=== PATIENT | female | born 1935 | race African-American/Black ===

== ENCOUNTER → 2017-01-19 | Outpatient (CLI) | payer BC ==
[~2017-01-19] MED LIST: AMLO2.5T PO; ASPI81TA28 PO; BNC5 PO; FURO-85 PO; HYZ/10015 PO; LOSA100T65 PO; LPR25 PO; LPT10 PO; LPT40 PO; LSX20 PO; MDRDP21; MELO7.5T5 PO; OLME5TAB3 PO; PRD20 PO; SIMV-150 PO; TPRSR/50 PO; TPRSR25 PO; TRAM-10 PO; VENL150C56 PO
--- NOTE | 2017-01-19 08:43 | DIAGNOSTIC IMAGING REPORT ---
CHEST 2 VIEWS ROUTINE CLINICAL HISTORY: Chest pain. COMPARISON STUDY: Chest radiograph January 15, 2016. FINDINGS: Lung volumes are normal. There is no pneumothorax or pleural effusion. Cardiac size is within normal limits. There is no evidence of pulmonary edema. Mild left basilar opacity is suggestive of atelectasis. IMPRESSION: No acute cardiopulmonary findings. Electronically signed by: Paxton Noriega M.D. 01/19/2017 8:42 AM Dictated Date/Time: 01/19/2017 8:40 AM
== END | disposition home or self-care (01) ==
LOC: C.RAD 08:14
PROVIDERS: ATTEND Internal Medicine
DX: R07.9 Chest pain, unspecified (principal)

== ENCOUNTER 2017-01-22 15:54 | Observation (INO) | payer BC ==
[~2017-01-22] VITALS: Ht 167.6 cm; Wt 69.3 kg
[~2017-01-22 15:54] MED LIST changes: -BNC5 PO; -FURO-85 PO; -LOSA100T65 PO; -LPR25 PO; -LPT10 PO; -LPT40 PO; -LSX20 PO; -MDRDP21; -OLME5TAB3 PO; -PRD20 PO; -TPRSR/50 PO; -TPRSR25 PO
[2017-01-22] MEDS ORDERED: MDRDP21 (16:49)
[2017-01-22 16:54] LABS: HEMATOCRIT 39.7 % (37-47); MEAN CELL VOLUME 88.8 fL (80-100); MEAN CORPUSCULAR HGB CONC 33.8 g/dl (32-36); MEAN PLATELET VOLUME 9.1 fL (7.4-10.4); PLATELET COUNT 256 K/uL (130-400); RED BLOOD COUNT 4.47 M/uL (4.2-5.4); WHITE BLOOD COUNT 6.35 K/uL (4.8-10.8)
--- NOTE | 2017-01-22 16:55 | EMERGENCY ROOM VISIT NOTE ---
History Report prepared by Kristian: Reuben Gayle Under the Supervision of: Dr. Steffanie Womack M.D. First contact with patient: 16:43 Chief Complaint: CHEST PAIN Stated Complaint: CHEST PAIN History of Present Illness The patient is an 81 year old female who presents to the Emergency Room with complaints of intermittent chest pain that started 3 months ago. This pain is worse on the right side, especially when she lies on her left side. She describes this pain as a "piercing pain." She adds that she feels itchy on the right side when she is experiencing this pain. The patient states that she initially thought this pain was related to her right breast. She had a mammogram performed about 2 months ago which was normal. The patient was evaluated by her PCP 4 days ago. A chest x-ray was performed at this time. The patient states that she was told to come into the ED after review of the x-ray results. The patient denies nausea and any signs of a rash. The patient reports a history of arthritis. Source of History: patient Onset: 3 months ago Position: chest (right) Quality: other ("Piercing" ) Timing: intermittent Modifying Factors (Worsening): other (Lying on left side) Associated Symptoms: No nausea, No rash Review of Systems See HPI for pertinent positives & negatives. A total of 10 systems reviewed and were otherwise negative. 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 Surgical Problems: (1) History of hysterectomy (2) History of left hip replacement (3) History of right hip replacement (4) S/P appendectomy (5) S/P ORIF (open reduction internal fixation) fracture (6) Status post left hip replacement Family History Omitted due to patient age Social History Smoking Status: Former Smoker Drug Use: none Housing Status: assisted living Occupation Status: retired Current/Historical Medications Scheduled Amlodipine Besylate (Norvasc), 2.5 MG PO HS Aspirin (Aspirin Ec), 81 MG PO HS Hctz/Losartan (Hyzaar 25MG/100MG), 1 TAB PO QPM Meloxicam (Mobic), 7.5 MG PO HS Methylprednisolone (Methylprednisolone Dose P), UD Simvastatin (Simvastatin), 10 MG PO QPM Venlafaxine Hcl (Effexor Extended Rel), 150 MG PO HS Allergies Coded Allergies: Lobster (Verified Adverse Reaction, Intermediate, GI SYMPTOMS, 01/22/17) per pt report. Physical Exam Vital Signs Date Time Temp Pulse Resp B/P Pulse Ox O2 Delivery O2 Flow Rate FiO2 01/22/17 20:38 83 01/22/17 19:15 82 16 148/79 98 01/22/17 17:29 132/65 01/22/17 17:24 87 13 95 01/22/17 16:59 121/80 01/22/17 16:54 91 20 98 01/22/17 16:44 91 01/22/17 16:40 133/72 01/22/17 16:35 98 Room Air 01/22/17 16:35 90 17 133/72 98 Room Air 01/22/17 16:30 90 17 133/72 98 Room Air 01/22/17 15:59 98 Room Air 01/22/17 15:56 37.3 91 17 136/71 98 Room Air Physical Exam Vital signs reviewed. General: Well-appearing female, in no significant distress. HEENT: No scleral icterus, PERRLA, neck supple. Atraumatic. Cardiovascular: Regular rate and rhythm, no extra sounds. Pulmonary: Clear to auscultation bilaterally, normal work of breathing. Abdomen: Soft, nontender, nondistended, positive bowel sounds. Musculoskeletal: Atraumatic, no peripheral edema. Neurologic: Patient awake alert and oriented x 3, full strength in all 4 extremities. Cranial nerves 2 through 12 grossly intact. Skin: Warm, dry, no rash Medical Decision & Procedures ER Provider Diagnostic Interpretation: X-ray results as stated below per my interpretation and radiologist interpretation. Other radiology results as stated below per my review and radiologist interpretation: CHEST ONE VIEW PORTABLE CLINICAL HISTORY: Chest pain. COMPARISON STUDY: Chest radiograph January 19, 2017. FINDINGS: Lung volumes are at the lower limits of normal. Kyphotic positioning is noted. Cardiac size is at the upper limits of normal. There is no evidence of pulmonary edema. Mild left basilar opacity favors atelectasis. IMPRESSION: 1. No acute findings. 2. Mild left basilar opacity suggestive of atelectasis. Electronically signed by: Paxton Noriega M.D. 01/22/2017 4:54 PM Dictated Date/Time: 01/22/2017 4:46 PM RENAL ULTRASOUND CLINICAL HISTORY: Renal insufficiency. Chest pain. COMPARISON STUDY: None. TECHNIQUE: Sonography of the kidneys and the urinary bladder was performed. FINDINGS: The right kidney measures 9.7 x 3.7 x 4.4 cm and the left measures 9.8 x 4.7 x 4 cm. There is no hydronephrosis. Multiple bilateral renal cysts measure up to 4.5 cm. No renal calculi are identified. The ureteral jets were not visualized. IMPRESSION: 1. No hydronephrosis. 2. Multiple bilateral renal cysts. Electronically signed by: Paxton Noriega M.D. 01/22/2017 7:16 PM Dictated Date/Time: 01/22/2017 7:15 PM BILATERAL LOWER EXTREMITY VENOUS DOPPLER CLINICAL HISTORY: Elevated d-dimer. COMPARISON STUDY: Left lower extremity venous Doppler November 08, 2015. TECHNIQUE: Sonography of the deep venous system of the bilateral lower extremities was performed. Compression and augmentation were evaluated. FINDINGS: The bilateral common femoral, superficial femoral and popliteal veins were compressible. Augmentation was normal. Flow was shown within the deep calf vessels. IMPRESSION: No evidence of deep venous thrombus within the bilateral lower extremities. Electronically signed by: Paxton Noriega M.D. 01/22/2017 7:17 PM Dictated Date/Time: 01/22/2017 7:16 PM Laboratory Results Test 01/22/17 16:35 01/22/17 16:40 01/22/17 16:44 Prothrombin Time 12.0 SECONDS (9.0-12.0) Prothromb Time International Ratio 1.1 (0.9-1.1) Activated Partial Thromboplast Time 26.6 SECONDS (21.0-31.0) Partial Thromboplastin Ratio 1.0 Total Bilirubin 0.4 mg/dl (0.2-1) Aspartate Amino Transf (AST/SGOT) 15 U/L (15-37) Alanine Aminotransferase (ALT/SGPT) 23 U/L (12-78) Alkaline Phosphatase 115 U/L (45-117) Total Protein 8.0 gm/dl (6.4-8.2) Albumin 3.7 gm/dl (3.4-5.0) Globulin 4.3 gm/dl (2.5-4.0) Albumin/Globulin Ratio 0.9 (0.9-2) Urine Color YELLOW Urine Appearance CLEAR (CLEAR) Urine pH 5.0 (4.5-7.5) Urine Specific Atkinson 1.014 (1.000-1.030) Urine Protein NEG (NEG) Urine Glucose (UA) NEG (NEG) Urine Ketones NEG (NEG) Urine Occult Blood NEG (NEG) Urine Nitrite NEG (NEG) Urine Bilirubin NEG (NEG) Urine Urobilinogen NEG (NEG) Urine Leukocyte Esterase SMALL (NEG) Urine WBC (Auto) 1-5 /hpf (0-5) Urine RBC (Auto) 0-4 /hpf (0-4) Urine Hyaline Casts (Auto) 1-5 /lpf (0-5) Urine Epithelial Cells (Auto) 20-30 /lpf (0-5) Urine Bacteria (Auto) NEG (NEG) Urine Random Creatinine 150.0 mg/dl Urine Random Sodium 68 mEq/L Bedside D-Dimer > 450 ng/mlFEU (0-450) Bedside Troponin I 0.030 ng/ml (0-0.045) Laboratory results per my review. Medications Administered Medications (Trade) Dose Ordered Sig/Chinedu Route Start Time Stop Time Status Last Admin Dose Admin Sodium Chloride (Nss 1000ml) 1,000 ml @ 125 mls/hr Q8H STAT IV 01/22/17 17:25 01/23/17 00:20 DC 01/22/17 17:43 125 MLS/HR ECG Indication: chest pain Rate (beats per minute): 94 Rhythm: normal sinus Findings: other (Previous septal infarct) Comparison ECG Date: January 22, 2017 Change: Septal infarct is new ED Course 1649: Past medical records reviewed. The patient was evaluated in room B12B. A complete history and physical examination was performed. 1725: Ordered Sodium Chloride 1,000 ml @ 125 mls/hr IV. 1935: I reviewed the patient's case with Dr. Ahn ([facility] Hospitalist). She will evaluate the patient for further management. Medical Decision DDx: Acute coronary syndrome, pulmonary embolus, aortic dissection, musculoskeletal pain, pneumonia, pleural effusion, pneumothorax This pt was evaluated and appeared to be in no distress. IV access was obtained and lab work was drawn. Pt was placed on the urogynecology physician and an EKG was performed. EKG reveals a CXR was performed by protocol and reveals atelectasis, similar to yesterday's exam. Lab work was ordered by protocol as well, including a d-dimer. This is elevated >450. Pt is found to have a creat of 1.8. This is apparently not a new issue, although most recently her creat has been near 1.0. Pt was hydrated with NSS. US are neg for DVT. Renal scan is as above. Pt will be evaluated by the hospitalist for further management. Consults Time Called: 1929 Consulting Physician: Dr. Ahn ([facility]) Returned Call: 1934 I reviewed the patient's case with Dr. Ahn ([facility]). She will evaluate the patient for further management. Impression Primary Impression: Right-sided chest pain Additional Impressions: Elevated d-dimer Renal insufficiency Scribe Attestation The scribe's documentation has been prepared under my direction and personally reviewed by me in its entirety. I confirm that the note above accurately reflects all work, treatment, procedures, and medical decision making performed by me. Departure Information Dispostion Being Evaluated By Hospitalist Referrals Fermin Olvera M.D. (PCP) Patient Instructions My [facility] Problem Qualifiers
[2017-01-22 17:02] LABS: INR 1.1 (0.9-1.1)
[2017-01-22 17:14] LABS: BUN/CREATININE RATIO 20.4 (10-20); CREATININE 1.8 mg/dl (0.60-1.20); POTASSIUM 3.6 mmol/L (3.5-5.1)
[2017-01-22 17:19] LABS: ALB/GLOB RATIO 0.9 (0.9-2); CKMB/CK RATIO 1.8 (0-3.0)
[2017-01-22] MEDS ORDERED: SODIUM CHLORIDE 0.9% 1000ML 1,000 ML IV STA (17:25)
--- NOTE | 2017-01-22 19:17 | DIAGNOSTIC IMAGING REPORT ---
RENAL ULTRASOUND CLINICAL HISTORY: Renal insufficiency. Chest pain. COMPARISON STUDY: None. TECHNIQUE: Sonography of the kidneys and the urinary bladder was performed. FINDINGS: The right kidney measures 9.7 x 3.7 x 4.4 cm and the left measures 9.8 x 4.7 x 4 cm. There is no hydronephrosis. Multiple bilateral renal cysts measure up to 4.5 cm. No renal calculi are identified. The ureteral jets were not visualized. IMPRESSION: 1. No hydronephrosis. 2. Multiple bilateral renal cysts. Electronically signed by: Paxton Noriega M.D. 01/22/2017 7:16 PM Dictated Date/Time: 01/22/2017 7:15 PM
--- NOTE | 2017-01-22 19:19 | DIAGNOSTIC IMAGING REPORT ---
BILATERAL LOWER EXTREMITY VENOUS DOPPLER CLINICAL HISTORY: Elevated d-dimer. COMPARISON STUDY: Left lower extremity venous Doppler November 08, 2015. TECHNIQUE: Sonography of the deep venous system of the bilateral lower extremities was performed. Compression and augmentation were evaluated. FINDINGS: The bilateral common femoral, superficial femoral and popliteal veins were compressible. Augmentation was normal. Flow was shown within the deep calf vessels. IMPRESSION: No evidence of deep venous thrombus within the bilateral lower extremities. Electronically signed by: Paxton Noriega M.D. 01/22/2017 7:17 PM Dictated Date/Time: 01/22/2017 7:16 PM
[2017-01-22] MEDS ORDERED: ASPIRIN 81 MG CHEW PO STA (20:52)
[2017-01-22] MEDS ORDERED: ONDANSETRON INJ 2 MG/ML 2 ML VIAL IV PRN (21:00)
[2017-01-22] MEDS ORDERED: IV FLUIDS COMPLETED PRN (21:30)
--- NOTE | 2017-01-22 21:35 | History and Physical ---
History & Physical Date & Time of Service: Jan 22, 2017 at 20:56 Chief Complaint: Chest Pain Primary Care Physician: Fermin Olvera M.D. History of Present Illness Source: patient, clinic records This is an 81 year old female with PMH of CKD, HTN, dyslipidemia, 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 Patient states she has chest pain intermittently x 3 months. She reports having a mammogram, ultrasound, and biopsy of her breast which was benign. She was seen by her PCP in [place] 4 days ago who ordered a chest x- ray and prescribed a steroid which she took 1 dose of this morning. The CXR was done at [facility] on 01/19/17 which showed mild L basilar opacity suggestive of atelectasis. Pt states her PCP called her and instructed her to present to the ER. Patient states the chest pain is present whenever she lies on her right side and also occurs sporadically a few times throughout the day. She describes it as squeezing or stinging behind the left breast with radiation of itching or burning pain to her back. Denies any rashes or history of shingles. She is not having any chest pain currently. She reports chronic occasional palpitations. She denies ELLIOTT when she ambulates, although she does not climb stairs or walk briskly secondary to her chronic hip pain and is mostly sedentary at home. She has been eating normally and drinking plenty of fluids. Denies fever, chills, diaphoresis, URI symptoms, cough, SOB, orthopnea, abdominal pain, N/V/D, urinary changes, weight gain, edema, calf pain, anxiety, heavy lifting. She had a [address] when she traveled to and from [place] earlier this week. No other travel. No recent surgery. Denies history of CAD. She has not had a cath as per Dr. Jaquez's cardiology consultation in Dec 2015. Denies history of PE or DVT. She does take meloxicam daily. Past Medical/Surgical History Medical Problems: (1) Anemia Status: Resolved (2) Bipolar disorder Status: Chronic (3) CKD (chronic kidney disease) Status: Chronic (4) Diastolic dysfunction Permanent Comment: grade 1 diastolic dysfunction on echo 01/16/16 Status: Chronic (5) H/O viral myocarditis Permanent Comment: in remote past with improvement of LV EF to 55% on echo 2015 Status: Chronic (6) History of gout Status: Chronic (7) Hyperlipidemia Status: Chronic (8) Hypertension Status: Chronic (9) Mitral regurgitation Permanent Comment: mild on echo 12/2015 Status: Chronic Surgical Problems: (1) History of hysterectomy Status: Chronic (2) History of right hip replacement Status: Chronic (3) S/P appendectomy Status: Chronic (4) S/P ORIF (open reduction internal fixation) fracture Permanent Comment: left femur 01/16/16 Status: Chronic (5) Status post left hip replacement Status: Chronic Family History FH: CHF (congestive heart failure) FATHER MOTHER BROTHER Denies family history of CAD or blood clots. Social History Smoking Status: Former Smoker Drug Use: none Occupational Status: retired Multi-Drug Resistant Organisms History of MDRO: No Allergies Coded Allergies: Lobster (Verified Adverse Reaction, Intermediate, GI SYMPTOMS, 01/22/17) per pt report. Home Medications Scheduled Amlodipine Besylate (Norvasc), 2.5 MG PO HS Aspirin (Aspirin Ec), 81 MG PO HS Hctz/Losartan (Hyzaar 25MG/100MG), 1 TAB PO QPM Meloxicam (Mobic), 7.5 MG PO HS Methylprednisolone (Methylprednisolone Dose P), UD Simvastatin (Simvastatin), 10 MG PO QPM Venlafaxine Hcl (Effexor Extended Rel), 150 MG PO HS Review of Systems Ten point review of systems performed with pertinent positives and negatives noted in HPI. Physical Exam Vital Signs Date Time Temp Pulse Resp B/P Pulse Ox O2 Delivery O2 Flow Rate FiO2 01/22/17 20:38 83 01/22/17 19:15 82 16 148/79 98 01/22/17 17:29 132/65 01/22/17 17:24 87 13 95 01/22/17 16:59 121/80 01/22/17 16:54 91 20 98 01/22/17 16:44 91 01/22/17 16:40 133/72 01/22/17 16:35 98 Room Air 01/22/17 16:35 90 17 133/72 98 Room Air 01/22/17 16:30 90 17 133/72 98 Room Air 01/22/17 15:59 98 Room Air 01/22/17 15:56 37.3 91 17 136/71 98 Room Air General Appearance: WD/WN, no apparent distress Head: normocephalic, atraumatic Eyes: normal inspection, PERRL, EOMI ENT: hearing grossly normal, pharynx normal Neck: trachea midline, + JVD Respiratory/Chest: chest non-tender, lungs clear, normal breath sounds, no respiratory distress, no accessory muscle use Cardiovascular: regular rate, rhythm, no murmur, normal peripheral pulses Abdomen/GI: normal bowel sounds, non tender, soft Back: + pertinent finding (no thoracic paraspinal muscle tenderness) Extremities/Musculoskelatal: no calf tenderness, no pedal edema Neurologic/Psych: alert, normal mood/affect, oriented x 3, + pertinent finding (grossly nonfocal) Skin: normal color, warm/dry, no rash (no rash on the left breast area or back ) Diagnostics Laboratory Results Results Past 24 Hours Test 01/22/17 16:35 01/22/17 16:44 Range/Units White Blood Count 6.35 4.8-10.8 K/uL Red Blood Count 4.47 4.2-5.4 M/uL Hemoglobin 13.4 12.0-16.0 g/dL Hematocrit 39.7 37-47 % Mean Corpuscular Volume 88.8 80-100 fL Mean Corpuscular Hemoglobin 30.0 25-34 pg Mean Corpuscular Hemoglobin Concent 33.8 32-36 g/dl RDW Standard Deviation 40.1 36.4-46.3 fL RDW Coefficient of Variation 12.5 11.5-14.5 % Platelet Count 256 130-400 K/uL Mean Platelet Volume 9.1 7.4-10.4 fL Prothrombin Time 12.0 9.0-12.0 SECONDS Prothromb Time International Ratio 1.1 0.9-1.1 Activated Partial Thromboplast Time 26.6 21.0-31.0 SECONDS Partial Thromboplastin Ratio 1.0 Sodium Level 138 136-145 mmol/L Potassium Level 3.6 3.5-5.1 mmol/L Chloride Level 103 98-107 mmol/L Carbon Dioxide Level 25 21-32 mmol/L Anion Gap 10.0 3-11 mmol/L Blood Urea Nitrogen 37 7-18 mg/dl Creatinine 1.80 0.60-1.20 mg/dl Est Creatinine Clear Calc Drug Dose 23.3 ml/min Estimated GFR () 30.3 Estimated GFR (Non- 26.1 BUN/Creatinine Ratio 20.4 10-20 Random Glucose 124 70-99 mg/dl Calcium Level 9.0 8.5-10.1 mg/dl Total Bilirubin 0.4 0.2-1 mg/dl Aspartate Amino Transf (AST/SGOT) 15 15-37 U/L Alanine Aminotransferase (ALT/SGPT) 23 12-78 U/L Alkaline Phosphatase 115 45-117 U/L Total Creatine Kinase 117 26-192 U/L Creatine Kinase MB 2.1 0.5-3.6 ng/ml Creatine Kinase MB Ratio 1.8 0-3.0 Total Protein 8.0 6.4-8.2 gm/dl Albumin 3.7 3.4-5.0 gm/dl Globulin 4.3 2.5-4.0 gm/dl Albumin/Globulin Ratio 0.9 0.9-2 Bedside D-Dimer > 450 0-450 ng/mlFEU Bedside Troponin I 0.030 0-0.045 ng/ml Diagnostic Radiology CHEST ONE VIEW PORTABLE CLINICAL HISTORY: Chest pain. COMPARISON STUDY: Chest radiograph January 19, 2017. FINDINGS: Lung volumes are at the lower limits of normal. Kyphotic positioning is noted. Cardiac size is at the upper limits of normal. There is no evidence of pulmonary edema. Mild left basilar opacity favors atelectasis. IMPRESSION: 1. No acute findings. 2. Mild left basilar opacity suggestive of atelectasis. RENAL ULTRASOUND CLINICAL HISTORY: Renal insufficiency. Chest pain. COMPARISON STUDY: None. TECHNIQUE: Sonography of the kidneys and the urinary bladder was performed. FINDINGS: The right kidney measures 9.7 x 3.7 x 4.4 cm and the left measures 9.8 x 4.7 x 4 cm. There is no hydronephrosis. Multiple bilateral renal cysts measure up to 4.5 cm. No renal calculi are identified. The ureteral jets were not visualized. IMPRESSION: 1. No hydronephrosis. 2. Multiple bilateral renal cysts. BILATERAL LOWER EXTREMITY VENOUS DOPPLER CLINICAL HISTORY: Elevated d-dimer. COMPARISON STUDY: Left lower extremity venous Doppler November 08, 2015. TECHNIQUE: Sonography of the deep venous system of the bilateral lower extremities was performed. Compression and augmentation were evaluated. FINDINGS: The bilateral common femoral, superficial femoral and popliteal veins were compressible. Augmentation was normal. Flow was shown within the deep calf vessels. IMPRESSION: No evidence of deep venous thrombus within the bilateral lower extremities. EKG sinus rhythm, rate 94 bpm, possible left atrial enlargement, possible age indeterminate septal infarct, nonspecific T wave abnormality now present in anterior leads Impression Assessment and Plan VITOR Creat is 1.8; baseline approximately 1 in Dec 2015; BUN = 37 Renal US showed multiple bilateral renal cysts Check UA, urine sodium, urine spot creatinine Hold losartan/ HCTZ, meloxicam, and methylprednisolone Given approximately 500 mL of IVF's in ER Recheck renal function in am CHEST PAIN Intermittent x 3 months; resolved currently Initial POC troponin 0.03 CXR shows L base atelectasis; incentive spirometry ordered EKG- nonspecific T wave abnormality D dimer elevated; ultrasound of bilateral LE negative for DVT Check VQ scan in am to r/o PE Check bilateral blood pressures R/o ACS- trend serial cardiac enzymes Give aspirin 324 mg chewable now Continue baby aspirin and statin Check DSE in am HYPERTENSION BP is stable HCTZ/ losartan held for VITOR HISTORY OF VIRAL MYOCARDITIS In approximately 1989 patient had EF of 15% which has normalized Echo 01/16/16- EF 55%, grade 1 diastolic dysfunction, mild biatrial enlargement, mild AV sclerosis, mild mitral regurgitation Clinically euvolemic on exam Check daily standing weight BIPOLAR DISORDER Stable; continue Effexor DVT PROPHYLAXIS Heparin SQ CODE STATUS Full code per my discussion with the patient Patient seen in collaboration with Dr. Ahn. Please see her addendum. ATTENDING ADDENDUM Record reviewed. Patient interviewed and examined. I agree with the assessment and plan as stated above. Care coordinated with Mecca Bangura PA-C. Please refer to her documentation for patient's history. Sujata Ahn, DO Hospitalist Level of Care Telemetry Resuscitation Status FULL RESUSCITATION VTE Prophylaxis VTE Risk Assessment Done? Y/N: Yes Risk Level: Moderate Given or contraindicated: Unfractionated heparin SQ
[2017-01-22 22:32] LABS: URINE APPEARANCE CLEAR (CLEAR); URINE BILIRUBIN NEG (NEG); URINE COLOR YELLOW; URINE EPITHELIAL CELL AUTO 20-30 /lpf (0-5); URINE NITRITE NEG (NEG); URINE SPECIFIC GRAVITY 1.014 (1.000-1.030); UROBILINOGEN NEG (NEG); ZZUR CULT IF INDIC CLEAN CATCH NO
[2017-01-22 22:34] LABS: MANUAL MICROSCOPIC REQUIRED? NO; REVIEW REQ? NO
[2017-01-22 23:15] LABS: CKMB/CK RATIO 1.8 (0-3.0)
[2017-01-23] VITALS: BP 171/96; PULSE 78; TEMP 36.7; Ht 167.6 cm; Wt 69.3 kg
[2017-01-23] MEDS ORDERED: SODIUM CHLORIDE 0.9% 1000ML 1,000 ML IV SCH (00:30)
[2017-01-23] MEDS ORDERED: ASPIRIN 81 MG CHEW PO STA (00:34)
[2017-01-23] MEDS: SIMVASTATIN 10 MG TAB PO SCH ×2 (00:50→20:29)
[2017-01-23] MEDS: VENLAFAXINE HCL XR 150 MG CAPXR PO SCH ×2 (00:51→20:29)
[2017-01-23] MEDS: AMLODIPINE BESYLATE 5 MG TAB PO SCH ×2 (00:51→20:31)
[2017-01-23 04:00] VITALS: BP 162/88; PULSE 72; TEMP 36.4; O2SAT 96
[2017-01-23] MEDS: HEPARIN SOD 5000 UNIT/0.5 ML CARP SQ SCH ×3 (05:52→20:30)
[2017-01-23 05:56] LABS: HEMATOCRIT 31.7 % (37-47); MEAN CELL VOLUME 90.3 fL (80-100); MEAN CORPUSCULAR HEMOGLOBIN 30.2 pg (25-34); MEAN CORPUSCULAR HGB CONC 33.4 g/dl (32-36); MEAN PLATELET VOLUME 9.2 fL (7.4-10.4); PLATELET COUNT 205 K/uL (130-400); RED BLOOD COUNT 3.51 M/uL (4.2-5.4); WHITE BLOOD COUNT 6.76 K/uL (4.8-10.8)
[2017-01-23 06:34] LABS: BUN/CREATININE RATIO 25.3 (10-20); CALCIUM 8.3 mg/dl (8.5-10.1); CREATININE 1.4 mg/dl (0.60-1.20); MAGNESIUM 2.1 mg/dl (1.8-2.4); POTASSIUM 3.9 mmol/L (3.5-5.1)
[2017-01-23 06:37] LABS: CKMB/CK RATIO 2.2 (0-3.0)
[2017-01-23 08:04] VITALS: BP 150/87; PULSE 67; TEMP 36.7; O2SAT 98
--- NOTE | 2017-01-23 11:23 | DIAGNOSTIC IMAGING REPORT ---
NUCLEAR MEDICINE PULMONARY VENTILATION/PERFUSION SCAN CLINICAL HISTORY: Atypical chest pain and positive d-dimer. COMPARISON STUDY: Chest x-ray dated 01/22/2017 FINDINGS: Patient was ventilated utilizing 33 mCi of technetium 99m DTPA aerosol. The patient was perfused utilizing 5.5 mCi of technetium 99m MAA. There is a slightly heterogeneous perfusion pattern. There is a moderate VQ mismatch involving the left lower lobe, without a chest x-ray correlate. This study is of intermediate probability for pulmonary embolism. CT angiography of the chest should be considered in follow-up. IMPRESSION: Intermediate probability of acute pulmonary embolism. CT angiography of the chest is recommended in follow-up Electronically signed by: Steve Samuels M.D. 01/23/2017 11:22 AM Dictated Date/Time: 01/23/2017 11:14 AM
[2017-01-23 12:14] VITALS: BP 153/75; PULSE 66; TEMP 36.8; O2SAT 99
--- NOTE | 2017-01-23 13:51 | Progress Note ---
Internal Med Progress Note Date of Service: Jan 23, 2017. Provider Documentation: SUBJECTIVE: The patient was seen and examined No more chest pain Denies any SOB OBJECTIVE: Vital Signs-as noted below Exam: General-No distress at rest Eyes-Normal ENT-normal Neck-Supple Lungs-Clear to ausucltate bilaterally Heart-Regular,no murmur appreciated Abdomen-Benign,no masses,bowel sound present Extremities-No edema Neuro-AAOx3 No focal neuro deficit Lab data as noted below. ASSESSMENT & PLAN: Acute Renal Failure Likely secondary to Dehydration Creat is 1.8 on Admission; baseline approximately 1 in Dec 2015; Renal US showed multiple bilateral renal cysts and no hydronephrosis Hold losartan/ HCTZ, meloxicam, and methylprednisolone Received IVF in ER Creatinine is improved to 1.4 this morning Continue IVF for now CHEST PAIN-ACS ruled out Intermittent x 3 months; resolved currently Initial POC troponin 0.03 and serial tests are unremarkable CXR shows L base atelectasis; EKG- nonspecific T wave abnormality Give aspirin 324 mg chewable now Continue baby aspirin and statin Intermediate Probability of PE on VQ scan NO DVTs Likely to have Stress test as an OP HYPERTENSION BP is stable HCTZ/ losartan held for VITOR HISTORY OF VIRAL MYOCARDITIS In approximately 1989 patient had EF of 15% which has normalized Echo 01/16/16- EF 55%, grade 1 diastolic dysfunction, mild biatrial enlargement, mild AV sclerosis, mild mitral regurgitation Clinically euvolemic on exam BIPOLAR DISORDER Stable; continue Effexor No acute symptoms DVT PROPHYLAXIS Heparin SQ CODE STATUS Full code per my discussion with the patient Vital Signs: Date Time Temp Pulse Resp B/P Pulse Ox O2 Delivery O2 Flow Rate FiO2 01/23/17 12:30 Room Air 01/23/17 12:14 36.8 66 16 153/75 99 Room Air 01/23/17 08:50 Room Air 01/23/17 08:04 36.7 67 16 150/87 98 Room Air 01/23/17 04:00 36.4 72 18 162/88 96 Room Air 01/23/17 00:00 36.7 78 18 171/96 Room Air 01/22/17 23:39 81 20 162/97 98 Room Air 01/22/17 21:35 84 20 158/80 99 01/22/17 20:38 83 01/22/17 19:15 82 16 148/79 98 01/22/17 17:29 132/65 01/22/17 17:24 87 13 95 01/22/17 16:59 121/80 01/22/17 16:54 91 20 98 01/22/17 16:44 91 01/22/17 16:40 133/72 01/22/17 16:35 98 Room Air 01/22/17 16:35 90 17 133/72 98 Room Air 01/22/17 16:30 90 17 133/72 98 Room Air 01/22/17 15:59 98 Room Air 01/22/17 15:56 37.3 91 17 136/71 98 Room Air Lab Results: Results Past 24 Hours Test 01/22/17 16:35 01/22/17 16:40 01/22/17 16:44 01/22/17 22:45 Range/Units White Blood Count 6.35 4.8-10.8 K/uL Red Blood Count 4.47 4.2-5.4 M/uL Hemoglobin 13.4 12.0-16.0 g/dL Hematocrit 39.7 37-47 % Mean Corpuscular Volume 88.8 80-100 fL Mean Corpuscular Hemoglobin 30.0 25-34 pg Mean Corpuscular Hemoglobin Concent 33.8 32-36 g/dl RDW Standard Deviation 40.1 36.4-46.3 fL RDW Coefficient of Variation 12.5 11.5-14.5 % Platelet Count 256 130-400 K/uL Mean Platelet Volume 9.1 7.4-10.4 fL Prothrombin Time 12.0 9.0-12.0 SECONDS Prothromb Time International Ratio 1.1 0.9-1.1 Activated Partial Thromboplast Time 26.6 21.0-31.0 SECONDS Partial Thromboplastin Ratio 1.0 Sodium Level 138 136-145 mmol/L Potassium Level 3.6 3.5-5.1 mmol/L Chloride Level 103 98-107 mmol/L Carbon Dioxide Level 25 21-32 mmol/L Anion Gap 10.0 3-11 mmol/L Blood Urea Nitrogen 37 7-18 mg/dl Creatinine 1.80 0.60-1.20 mg/dl Est Creatinine Clear Calc Drug Dose 23.3 ml/min Estimated GFR () 30.3 Estimated GFR (Non- 26.1 BUN/Creatinine Ratio 20.4 10-20 Random Glucose 124 70-99 mg/dl Calcium Level 9.0 8.5-10.1 mg/dl Total Bilirubin 0.4 0.2-1 mg/dl Aspartate Amino Transf (AST/SGOT) 15 15-37 U/L Alanine Aminotransferase (ALT/SGPT) 23 12-78 U/L Alkaline Phosphatase 115 45-117 U/L Total Creatine Kinase 117 97 26-192 U/L Creatine Kinase MB 2.1 1.7 0.5-3.6 ng/ml Creatine Kinase MB Ratio 1.8 1.8 0-3.0 Total Protein 8.0 6.4-8.2 gm/dl Albumin 3.7 3.4-5.0 gm/dl Globulin 4.3 2.5-4.0 gm/dl Albumin/Globulin Ratio 0.9 0.9-2 Urine Color YELLOW Urine Appearance CLEAR CLEAR Urine pH 5.0 4.5-7.5 Urine Specific [place] 1.014 1.000-1.030 Urine Protein NEG NEG Urine Glucose (UA) NEG NEG Urine Ketones NEG NEG Urine Occult Blood NEG NEG Urine Nitrite NEG NEG Urine Bilirubin NEG NEG Urine Urobilinogen NEG NEG Urine Leukocyte Esterase SMALL NEG Urine WBC (Auto) 1-5 0-5 /hpf Urine RBC (Auto) 0-4 0-4 /hpf Urine Hyaline Casts (Auto) 1-5 0-5 /lpf Urine Epithelial Cells (Auto) 20-30 0-5 /lpf Urine Bacteria (Auto) NEG NEG Urine Random Creatinine 150.0 mg/dl Urine Random Sodium 68 mEq/L Bedside D-Dimer > 450 0-450 ng/mlFEU Bedside Troponin I 0.030 0-0.045 ng/ml Troponin I 0.025 0-0.045 ng/ml Test 01/23/17 05:08 Range/Units White Blood Count 6.76 4.8-10.8 K/uL Red Blood Count 3.51 4.2-5.4 M/uL Hemoglobin 10.6 12.0-16.0 g/dL Hematocrit 31.7 37-47 % Mean Corpuscular Volume 90.3 80-100 fL Mean Corpuscular Hemoglobin 30.2 25-34 pg Mean Corpuscular Hemoglobin Concent 33.4 32-36 g/dl RDW Standard Deviation 42.0 36.4-46.3 fL RDW Coefficient of Variation 12.7 11.5-14.5 % Platelet Count 205 130-400 K/uL Mean Platelet Volume 9.2 7.4-10.4 fL Sodium Level 145 136-145 mmol/L Potassium Level 3.9 3.5-5.1 mmol/L Chloride Level 111 98-107 mmol/L Carbon Dioxide Level 29 21-32 mmol/L Anion Gap 5.0 3-11 mmol/L Blood Urea Nitrogen 35 7-18 mg/dl Creatinine 1.40 0.60-1.20 mg/dl Est Creatinine Clear Calc Drug Dose 30.0 ml/min Estimated GFR () 41.0 Estimated GFR (Non- 35.4 BUN/Creatinine Ratio 25.3 10-20 Random Glucose 92 70-99 mg/dl Calcium Level 8.3 8.5-10.1 mg/dl Magnesium Level 2.1 1.8-2.4 mg/dl Total Creatine Kinase 85 26-192 U/L Creatine Kinase MB 1.9 0.5-3.6 ng/ml Creatine Kinase MB Ratio 2.2 0-3.0 Troponin I 0.035 0-0.045 ng/ml
[2017-01-23 15:51] VITALS: BP 136/79; PULSE 70; TEMP 36.8; O2SAT 98
[2017-01-23 19:43] VITALS: BP 133/77; PULSE 82; TEMP 36.6; O2SAT 94
[2017-01-23] MEDS: ASPIRIN 81 MG ECTAB PO SCH (20:29)
[2017-01-23] MEDS: ACETAMINOPHEN 325 MG TAB PO PRN (20:30)
[2017-01-24 04:00] VITALS: BP 153/84; PULSE 69; TEMP 36.6; O2SAT 97
[2017-01-24] MEDS: HEPARIN SOD 5000 UNIT/0.5 ML CARP SQ SCH ×3 (05:58→21:20)
[2017-01-24 07:56] LABS: BUN/CREATININE RATIO 21.5 (10-20); CALCIUM 8.5 mg/dl (8.5-10.1); CREATININE 1.3 mg/dl (0.60-1.20); POTASSIUM 3.9 mmol/L (3.5-5.1)
[2017-01-24 07:57] LABS: PHOSPHORUS 3.4 mg/dl (2.5-4.9)
[2017-01-24 08:04] VITALS: BP 156/88; PULSE 66; TEMP 36.7; O2SAT 97
[2017-01-24] MEDS: NSS + 20MEQ KCL 1000ML 1,000 ML IV SCH ×2 (09:40→17:44)
[2017-01-24 11:51] VITALS: BP 135/78; PULSE 70; TEMP 36.7; O2SAT 95
--- NOTE | 2017-01-24 13:15 | Progress Note ---
Internal Med Progress Note Date of Service: Jan 24, 2017. Provider Documentation: SUBJECTIVE: The patient was seen and examined Complains of some right sided chest pain No SOB associated with it OBJECTIVE: Vital Signs-as noted below Exam: General-No distress at rest Eyes-Normal ENT-normal Neck-Supple Lungs-Clear to ausucltate bilaterally No localized tenderness Heart-Regular,no murmur appreciated Abdomen-Benign,no masses,bowel sound present Extremities-No edema Neuro-AAOx3 No focal neuro deficit Lab data as noted below. ASSESSMENT & PLAN: Acute Renal Failure Likely secondary to Dehydration Creat is 1.8 on Admission; baseline approximately 1 in Dec 2015; Renal US showed multiple bilateral renal cysts and no hydronephrosis Hold losartan/ HCTZ, meloxicam, and methylprednisolone Received IVF in ER Creatinine is improved to 1.4 this morning Continue IVF for now Creatinine is improving CHEST PAIN-ACS ruled out Intermittent x 3 months; resolved currently Initial POC troponin 0.03 and serial tests are unremarkable CXR shows L base atelectasis; EKG- nonspecific T wave abnormality Give aspirin 324 mg chewable now Continue baby aspirin and statin Intermediate Probability of PE on VQ scan NO DVTs Probable CTA tomorrow to R/O PE Stress test in AM HYPERTENSION BP is stable HCTZ/ losartan held for VITOR HISTORY OF VIRAL MYOCARDITIS In approximately 1989 patient had EF of 15% which has normalized Echo 01/16/16- EF 55%, grade 1 diastolic dysfunction, mild biatrial enlargement, mild AV sclerosis, mild mitral regurgitation Clinically euvolemic on exam BIPOLAR DISORDER Stable; continue Effexor No acute symptoms DVT PROPHYLAXIS Heparin SQ CODE STATUS Full code per my discussion with the patient Vital Signs: Date Time Temp Pulse Resp B/P Pulse Ox O2 Delivery O2 Flow Rate FiO2 01/24/17 12:32 Room Air 01/24/17 11:51 36.7 70 16 135/78 95 Room Air 01/24/17 08:04 36.7 66 16 156/88 97 01/24/17 08:00 Room Air 01/24/17 04:00 36.6 69 18 153/84 97 Room Air 01/24/17 04:00 Room Air 01/24/17 00:00 Room Air 01/23/17 20:00 Room Air 01/23/17 19:43 36.6 82 20 133/77 94 Room Air 01/23/17 16:11 Room Air 01/23/17 15:51 36.8 70 18 136/79 98 Room Air Lab Results: Results Past 24 Hours Test 01/24/17 07:10 Range/Units Sodium Level 140 136-145 mmol/L Potassium Level 3.9 3.5-5.1 mmol/L Chloride Level 107 98-107 mmol/L Carbon Dioxide Level 29 21-32 mmol/L Anion Gap 4.0 3-11 mmol/L Blood Urea Nitrogen 28 7-18 mg/dl Creatinine 1.30 0.60-1.20 mg/dl Est Creatinine Clear Calc Drug Dose 32.3 ml/min Estimated GFR () 44.9 Estimated GFR (Non- 38.7 BUN/Creatinine Ratio 21.5 10-20 Random Glucose 83 70-99 mg/dl Calcium Level 8.5 8.5-10.1 mg/dl Phosphorus Level 3.4 2.5-4.9 mg/dl Magnesium Level 2.0 1.8-2.4 mg/dl
[2017-01-24 15:55] VITALS: BP 143/63; PULSE 74; TEMP 36.8; O2SAT 97
[2017-01-24 20:21] VITALS: BP 149/80; PULSE 79; TEMP 36.8; O2SAT 98
[2017-01-24] MEDS: SIMVASTATIN 10 MG TAB PO SCH (21:15)
[2017-01-24] MEDS: AMLODIPINE BESYLATE 5 MG TAB PO SCH (21:15)
[2017-01-24] MEDS: VENLAFAXINE HCL XR 150 MG CAPXR PO SCH (21:15)
[2017-01-24] MEDS: ASPIRIN 81 MG ECTAB PO SCH (21:15)
[2017-01-24 23:14] VITALS: BP 164/89; PULSE 77; TEMP 37; O2SAT 94
[2017-01-25] MEDS: NSS + 20MEQ KCL 1000ML 1,000 ML IV SCH ×3 (01:19→20:31)
[2017-01-25 04:31] VITALS: BP 148/81; PULSE 65; TEMP 36.9; O2SAT 98
[2017-01-25] MEDS: HEPARIN SOD 5000 UNIT/0.5 ML CARP SQ SCH ×3 (05:41→21:06)
[2017-01-25 06:34] LABS: BUN/CREATININE RATIO 19.1 (10-20); CALCIUM 8.5 mg/dl (8.5-10.1); CREATININE 1.4 mg/dl (0.60-1.20); POTASSIUM 4.8 mmol/L (3.5-5.1)
[2017-01-25 07:28] VITALS: BP 131/86; PULSE 68; TEMP 36.9; O2SAT 97
[2017-01-25 08:00] VITALS: O2SAT 97
[2017-01-25] MEDS ORDERED: METOPROLOL TARTRATE 1 MG/ML VIAL ONE (10:06)
[2017-01-25] MEDS ORDERED: ATROPINE SULFATE 0.1 MG/ML 5ML SYR ONE (10:06)
[2017-01-25] MEDS ORDERED: DOBUTamine HCL 12.5 MG/ML 20 ML VIAL ONE (10:06)
[2017-01-25] MEDS ORDERED: PERFLUTREN LIPID MICROSPHERE (DEFINITY) IV ONE (11:52)
[2017-01-25 15:55] VITALS: BP 136/80; PULSE 72; TEMP 36.8; O2SAT 97
--- NOTE | 2017-01-25 16:28 | Progress Note ---
Internal Med Progress Note Date of Service: Jan 25, 2017. Provider Documentation: SUBJECTIVE: The patient was seen and examined Complains of some pain on left side of the chest No nausea and or vomiting OBJECTIVE: Vital Signs-as noted below Exam: General-No distress at rest Eyes-Normal ENT-normal Neck-Supple Lungs-Clear to ausucltate bilaterally No localized tenderness Heart-Regular,no murmur appreciated Abdomen-Benign,no masses,bowel sound present Extremities-No edema Neuro-AAOx3 No focal neuro deficit Lab data as noted below. ASSESSMENT & PLAN: Acute Renal Failure Likely secondary to Dehydration Creat is 1.8 on Admission; baseline approximately 1 in Dec 2015; Renal US showed multiple bilateral renal cysts and no hydronephrosis Hold losartan/ HCTZ, meloxicam, and methylprednisolone Received IVF in ER Creatinine is improved to 1.4 this morning Continue IVF for now Creatinine remains at 1.40 Advised more fluid intake CHEST PAIN-ACS ruled out Intermittent x 3 months; resolved currently Initial POC troponin 0.03 and serial tests are unremarkable CXR shows L base atelectasis; EKG- nonspecific T wave abnormality Give aspirin 324 mg chewable now Continue baby aspirin and statin Intermediate Probability of PE on VQ scan NO DVTs Has had Dobutamine Stress ECHO this AM -result pending CTA could not be done due to increased Creatinine If Stress ECHO( is negative will d/c home HYPERTENSION BP is stable HCTZ/ losartan held for VITOR Will increase Amlodipine to control BP on Discharge OP assessment for reintroduction of Cozaar HISTORY OF VIRAL MYOCARDITIS In approximately 1989 patient had EF of 15% which has normalized Echo 01/16/16- EF 55%, grade 1 diastolic dysfunction, mild biatrial enlargement, mild AV sclerosis, mild mitral regurgitation Clinically euvolemic on exam BIPOLAR DISORDER Stable; continue Effexor No acute symptoms DVT PROPHYLAXIS Heparin SQ CODE STATUS Full code per my discussion with the patient Vital Signs: Date Time Temp Pulse Resp B/P Pulse Ox O2 Delivery O2 Flow Rate FiO2 01/25/17 15:55 36.8 72 16 136/80 97 Room Air 01/25/17 12:00 Room Air 01/25/17 08:00 97 Room Air 01/25/17 07:28 36.9 68 16 131/86 97 01/25/17 04:31 36.9 65 20 148/81 98 Room Air 01/25/17 04:00 Room Air 01/25/17 00:00 Room Air 01/24/17 23:14 37.0 77 18 164/89 94 Room Air 01/24/17 20:21 36.8 79 18 149/80 98 Room Air 01/24/17 20:00 Room Air Lab Results: Results Past 24 Hours Test 01/25/17 05:27 Range/Units Sodium Level 143 136-145 mmol/L Potassium Level 4.8 3.5-5.1 mmol/L Chloride Level 109 98-107 mmol/L Carbon Dioxide Level 28 21-32 mmol/L Anion Gap 6.0 3-11 mmol/L Blood Urea Nitrogen 27 7-18 mg/dl Creatinine 1.40 0.60-1.20 mg/dl Est Creatinine Clear Calc Drug Dose 30.0 ml/min Estimated GFR () 41.0 Estimated GFR (Non- 35.4 BUN/Creatinine Ratio 19.1 10-20 Random Glucose 85 70-99 mg/dl Calcium Level 8.5 8.5-10.1 mg/dl
--- NOTE | 2017-01-25 19:16 | DOBUTAMINE ECHO ---
*NOTICE TO RECEIVING DEMOCRAT AGENCY This information is strictly Confidential and protected under [place] law. [place] law prohibits you from making any further disclosure of this information unless further disclosure is expressly permitted by the written consent of the person to whom it pertains or is authorized by law. A general authorization for the release of medical or other information is not sufficient for this purpose. Hospital accepts no responsibility if the information is made available to any other person, INCLUDING THE PATIENT. Interpretation Summary * Name: MUSA PARK Study Date: 01/25/2017 09:03 AM BP: 157/81 mmHg * Patient Location: [facility]\S\N285\S\2 HR: 63 * : 1935 (M/d/yyy) Gender: Female Height: 66 in * Age: 81 yrs Ethnicity: AA Weight: 152 lb * Ordering Physician: Mecca Bangura * Referring Physician: Self, Referred * Performed By: Teodoro Suh RCS * * Reason For Study: Chest Pain * BSA: 1.8 m2 * -- Conclusions -- * 1. Abnormal stress test suggestive of possible RCA or circumflex disease with peak dobutamine induced ischemia. * 2. Mild to moderate resting LV dysfunction. LVEF 40-45%. Inferior, inferolateral hypokinesis with paradoxical septal motion. * 3. Augmentation of inferior, inferolateral chaney with low dose dobutamine * 4. Negative dobutamine stress ECG at 95% MPHR * 5. Chest pain reproduced with palpation with echo probe. * 6. Normal RV size and function. * 7. Mild aortic valve sclerois without stenosis. Trace AI. * 8. Mild to moderate mitral regurgitation. * 9. Grade I diastolic dysfunction. * 10. Compared with prior rest echo on 01/16/2016: Resting LV wall motion abnormalities and mild-moderate LV dysfunction is new. Procedure Details * DOBUTAMINE ECHO, CPT#47901 * ECHO COLOR FLOW, CPT #10821 * ECHO DOPPLER, CPT #32705 * A contrast injection of Definity was performed to improve assessment of LV function. * Contrast was injected into an intravenous site in the right arm. * One vial of Definity ultrasound contrast was diluted in normal saline to a total volume of 10 ml. A total of '6' ml of solution was administered during imaging. * Lot # [id number] of Definity utilized for procedure. * Expiration date . * The attending nurse who injected the contrast agent was Savanah Snowden RN. Left Ventricle * The left ventricle is grossly normal size. * There is normal left ventricular wall thickness. * Ejection Fraction = 40-45%. * Inferior, inferolateral moderate hypokinesis at rest. Paradoxical septal motion Inferior, inferolateral wall motion improves at low dose dobtuamine and worsens at peak stress. Right Ventricle * The right ventricle is grossly normal size. * The right ventricular systolic function is normal as assessed by tricuspid annular plane systolic excursion (TAPSE) (normal >1.5 cm). Atria * The left atrial size is normal. * The right atrium is mildly dilated. * No ASD detected; PFO is not assessed. Mitral Valve * The mitral valve is grossly normal. * There is no mitral valve stenosis. * There is mild to moderate mitral regurgitation. Tricuspid Valve * The tricuspid valve is not well visualized, but is grossly normal. * There is mild to moderate tricuspid regurgitation. * Right ventricular systolic pressure is normal. Aortic Valve * Aortic valve sclerosis mild, without significant aortic valvular stenosis. * The aortic valve is not well visualized. * No hemodynamically significant valvular aortic stenosis. * Trace aortic regurgitation. Pulmonic Valve * The pulmonary valve is inadequately visualized, but the Doppler data is adequate for interpretation. * Trace pulmonic valvular regurgitation. Great Vessels * The aortic root and proximal ascending aorta are normal sized. Pericardium * There is no pericardial effusion. Stress Parameters * Normal baseline electrocardiogram. * Stress ECG: No ST changes. No arrhythmias. * Arrhythmia induced during stress: occasional PVC's. * The stress portion of this study was personally supervised by the undersigned interpreting physician. * Rest heart rate was '63' BPM. * Rest blood pressure was '157/81' * Maximum heart rate achieved was 133 bpm. * Maximum heart rate was 95 % of maximum age-predicted heart rate. * Maximum blood pressure was '182/89' * Maximum Dobutamine infusion rate was '50' mcg/kg/min. * A total of .25 mg of intravenous Atropine was used to supplement Dobutamine for heart rate response. * Dobutamine infusion was terminated due to achieving target heart rate * A total of 5 mg of IV Metoprolol was administered to reverse Dobutamine-induced tachycardia. * Normal blood pressure response to exercise. Left Ventricular Diastolic Function * Grade I diastolic dysfunction, (abnormal relaxation pattern). MMode 2D Measurements and Calculations IVSd 1.0 cm IVSs 1.2 cm LVIDd 3.8 cm LVIDs 3.0 cm LVPWd 1.0 cm LVPWs 1.2 cm IVS/LVPW 1.0 FS 20.7 % EDV(Teich) 62.3 ml ESV(Teich) 35.6 ml EF(Teich) 42.9 % EDV(cubed) 55.3 ml ESV(cubed) 27.6 ml EF(cubed) 50.1 % % IVS thick 21.0 % % LVPW thick 13.8 % LV mass(C)d 121.2 grams LV mass(C)dI 68.1 grams/m\S\2 LV mass(C)s 110.0 grams LV mass(C)sI 61.8 grams/m\S\2 CO(Teich) 2.6 l/min CI(Teich) 1.5 l/min/m\S\2 SV(Teich) 26.7 ml SI(Teich) 15.0 ml/m\S\2 CO(cubed) 2.7 l/min CI(cubed) 1.5 l/min/m\S\2 SV(cubed) 27.7 ml SI(cubed) 15.6 ml/m\S\2 Ao root diam 3.3 cm Ao root area 8.4 cm\S\2 ACS 1.3 cm LA dimension 2.8 cm LA/Ao 0.85 LVAd ap4 32.2 cm\S\2 LVLd ap4 9.0 cm EDV(MOD-sp4) 93.0 ml LVAs ap4 23.2 cm\S\2 LVLs ap4 8.1 cm ESV(MOD-sp4) 56.0 ml EF(MOD-sp4) 39.8 % LVAd ap2 34.8 cm\S\2 LVLd ap2 9.3 cm EDV(MOD-sp2) 110.0 ml LVAs ap2 19.0 cm\S\2 LVLs ap2 7.9 cm ESV(MOD-sp2) 38.0 ml EF(MOD-sp2) 65.5 % CO(MOD-sp4) 3.6 l/min CI(MOD-sp4) 2.0 l/min/m\S\2 SV(MOD-sp4) 37.0 ml SI(MOD-sp4) 20.8 ml/m\S\2 CO(MOD-sp2) 7.1 l/min CI(MOD-sp2) 4.0 l/min/m\S\2 SV(MOD-sp2) 72.0 ml SI(MOD-sp2) 40.5 ml/m\S\2 Doppler Measurements and Calculations MV E max lena 85.0 cm/sec MV A max lena 61.6 cm/sec MV E/A 1.4 MV P1/2t max lena 87.7 cm/sec MV P1/2t 125.4 msec MVA(P1/2t) 1.8 cm\S\2 MV dec slope 204.9 cm/sec\S\2 MV dec time 0.24 sec Ao V2 max 118.1 cm/sec Ao max PG 5.6 mmHg Ao max PG (full) 4.3 mmHg LV V1 max PG 1.2 mmHg LV V1 max 55.7 cm/sec PA V2 max 64.6 cm/sec PA max PG 1.7 mmHg TR max lena 215.7 cm/sec
[2017-01-25 19:34] VITALS: BP 144/77; PULSE 69; TEMP 37; O2SAT 97
[2017-01-25] MEDS: SIMVASTATIN 10 MG TAB PO SCH (21:03)
[2017-01-25] MEDS: ASPIRIN 81 MG ECTAB PO SCH (21:03)
[2017-01-25] MEDS: VENLAFAXINE HCL XR 150 MG CAPXR PO SCH (21:03)
[2017-01-25] MEDS: ACETAMINOPHEN 325 MG TAB PO PRN (21:04)
[2017-01-25] MEDS: AMLODIPINE BESYLATE 5 MG TAB PO SCH (21:04)
[2017-01-25 23:51] VITALS: BP 161/78; PULSE 73; TEMP 36.8; O2SAT 96
[2017-01-26] VITALS (10 sets, daily range): BP systolic 138–161; BP diastolic 74–89; PULSE 67–78; TEMP 36.3–36.8; O2SAT 96–97
[2017-01-26] MEDS: NSS + 20MEQ KCL 1000ML 1,000 ML IV SCH (03:19)
[2017-01-26] MEDS: HEPARIN SOD 5000 UNIT/0.5 ML CARP SQ SCH ×3 (05:38→21:37)
--- NOTE | 2017-01-26 09:35 | Progress Note ---
Internal Med Progress Note Date of Service: Jan 26, 2017. Provider Documentation: SUBJECTIVE: The patient was seen and examined Complains of some positional pain on left side of the chest No Palpitation,SOB associated with it No nausea and or vomiting OBJECTIVE: Vital Signs-as noted below Exam: General-No distress at rest Eyes-Normal ENT-normal Neck-Supple Lungs-Clear to ausucltate bilaterally Minimal localized tenderness left lateral chest wall Heart-Regular,no murmur appreciated Abdomen-Benign,no masses,bowel sound present Extremities-No edema Neuro-AAOx3 No focal neuro deficit Lab data as noted below. ASSESSMENT & PLAN: CHEST PAIN-ACS ruled out Intermittent x 3 months; resolved currently Initial POC troponin 0.03 and serial tests are unremarkable CXR shows L base atelectasis; EKG- nonspecific T wave abnormality Give aspirin 324 mg chewable now Continue baby aspirin and statin Intermediate Probability of PE on VQ scan NO DVTs Has had Dobutamine Stress ECHO on 01/25/17::-* 1. Abnormal stress test suggestive of possible RCA or circumflex disease with peak dobutamine induced ischemia. * 2. Mild to moderate resting LV dysfunction. LVEF 40-45%. Inferior, inferolateral hypokinesis with paradoxical septal motion. * 3. Augmentation of inferior, inferolateral chaney with low dose dobutamine * 4. Negative dobutamine stress ECG at 95% MPHR * 5. Chest pain reproduced with palpation with echo probe. * 6. Normal RV size and function. * 7. Mild aortic valve sclerois without stenosis. Trace AI. * 8. Mild to moderate mitral regurgitation. * 9. Grade I diastolic dysfunction. * 10. Compared with prior rest echo on 01/16/2016: Resting LV wall motion abnormalities and mild-moderate LV dysfunction is new. Discussed with Dr Jamison Cardiology consult placed Started on BB,Statin and Nitro Discussed with the patient Acute Renal Failure Likely secondary to Dehydration Creat is 1.8 on Admission; baseline approximately 1 in Dec 2015; Renal US showed multiple bilateral renal cysts and no hydronephrosis Hold losartan/ HCTZ, meloxicam, and methylprednisolone Received IVF in ER Creatinine is improved to 1.4 this morning Continue IVF for now Creatinine remains at 1.40 Advised more fluid intake If creatinine is reasonable will get CAT to R/O PE Will d/c IVF due to Low EF HYPERTENSION BP is stable HCTZ/ losartan held for VITOR Will increase Amlodipine to control BP on Discharge OP assessment for reintroduction of Cozaar Started on BB HISTORY OF VIRAL MYOCARDITIS In approximately 1989 patient had EF of 15% which has normalized Echo 01/16/16- EF 55%, grade 1 diastolic dysfunction, mild biatrial enlargement, mild AV sclerosis, mild mitral regurgitation Clinically euvolemic on exam BIPOLAR DISORDER Stable; continue Effexor No acute symptoms DVT PROPHYLAXIS Heparin SQ CODE STATUS Full code per my discussion with the patient Vital Signs: Date Time Temp Pulse Resp B/P Pulse Ox O2 Delivery O2 Flow Rate FiO2 01/26/17 08:00 97 Room Air 01/26/17 07:26 36.3 67 18 146/79 97 01/26/17 04:00 Room Air 01/26/17 03:51 36.7 76 18 138/74 97 Room Air 01/26/17 00:00 Room Air 01/25/17 23:51 36.8 73 18 161/78 96 Room Air 01/25/17 20:00 Room Air 01/25/17 19:34 37.0 69 16 144/77 97 Room Air 01/25/17 16:00 Room Air 01/25/17 15:55 36.8 72 16 136/80 97 Room Air 01/25/17 12:00 Room Air Lab Results: Results Past 24 Hours Test 01/26/17 08:33 01/26/17 08:57 Range/Units
[2017-01-26 10:24] LABS: ALT/SGPT 21 U/L (12-78); BLOOD UREA NITROGEN 26 mg/dl (7-18); BUN/CREATININE RATIO 20.1 (10-20); CALCIUM 8.2 mg/dl (8.5-10.1); CARBON DIOXIDE 21 mmol/L (21-32); CHLORIDE 111 mmol/L (98-107); GLUCOSE 77 mg/dl (70-99); POTASSIUM 4.4 mmol/L (3.5-5.1); SODIUM 141 mmol/L (136-145)
[2017-01-26 10:27] LABS: ALKALINE PHOSPHATASE 106 U/L (45-117); AST/SGOT 14 U/L (15-37)
[2017-01-26] MEDS: ATORVASTATIN 40 MG TAB PO SCH (15:18)
[2017-01-26] MEDS: METOPROLOL TARTRATE 25 MG TAB PO SCH ×2 (15:18→21:30)
[2017-01-26] MEDS: NITROGLYCERIN OINT 2% 1GM PACKET EXT SCH ×3 (15:19→21:36)
--- NOTE | 2017-01-26 16:12 | CARDIOLOGY CONSULTATION ---
DATE OF CONSULTATION: 01/26/2017 CHIEF COMPLAINT: Chest pain. HISTORY OF PRESENT ILLNESS: Mrs. Nisha Quesada is an 81-year-old woman without a known history of coronary artery disease who has reported approximately 3 months' worth of intermittent atypical chest discomfort. The patient stated that her symptoms began around that time and essentially involved a fairly discrete sensation of discomfort over the left breast. There is some radiation to the axillary area which she describes as a "itching." Does not appear to be any involvement of the left arm, neck or jaw. Symptoms themselves appear to occur with lying on her right side, although at times she can have this occur spontaneously, during which she will change position and the symptoms resolve. There does not appear to be any exertional component. There is no pleuritic component. She is unable to describe any other circumstances with which the symptoms reliably develop. There does not appear to be any significant change in either the frequency, severity or character of her symptoms over the preceding 3 months. The patient is an active individual who is able to ambulate without significant limitation. She is able to ascend a few steps routinely. She denies exertional symptoms such as chest discomfort or shortness of breath. She does not perform more strenuous activity due to a history of hip surgery and lack of necessity. She did not describe significant breathing difficulty. She does not report orthopnea or paroxysmal dyspnea. She has not had any limiting dyspnea. She denies significant dizziness or lightheadedness. She has a sense of fluttering in her chest after discontinuing significant activity, but this does not occur spontaneously. She has no history of syncope. The patient does have a remote history of what has been described as a viral myocarditis. The presentation at that time involved significant lower extremity edema accompanied by significant dyspnea on exertion. The patient had approximately 5-day hospitalization which involved diuresis and eventually underwent reevaluation revealing near recovery of her left ventricular function. The patient does not report recurrent symptoms of that nature. PAST MEDICAL HISTORY: 1. Significant for anemia, bipolar disorder, chronic renal insufficiency, gout, hyperlipidemia, hypertension, viral myocarditis. The patient does not report having had any coronary angiography and reportedly had recovery of left ventricular systolic function with medical therapy. 2. Mitral regurgitation previously reported as mild. 3. Aortic insufficiency previously reported as mild. PAST SURGICAL HISTORY: Includes hysterectomy, right hip replacement, appendectomy, left hip replacement complicated by fracture x2 and reoperation. MEDICATIONS: Outpatient medical therapy includes amlodipine 2.5 mg daily, aspirin 81 mg daily, Hyzaar 25/100 one tablet daily, Meloxicam 7.5 mg daily, simvastatin 10 mg nightly, venlafaxine 150 mg nightly. MEDICAL ALLERGIES: No known medical allergies; however, the patient does report gastrointestinal symptoms with lobster ingestion. FAMILY HISTORY: Noncontributory. No significant premature coronary disease. SOCIAL HISTORY: The patient is and lives independently. She has a remote history of tobacco abuse, currently a nonsmoker. She denies significant alcohol use and no history of illicit drug use. The patient currently retired and previously was a musician playing primarily organ and piano. REVIEW OF SYSTEMS: Complete 10-system review of systems was performed. Pertinent positives noted in the history of present illness. The patient did not report any lower extremity edema. She did report some occasional fleeting discomfort in the occiput recently which she felt might be related to eye strain. This is not common and has resolved in its entirety. She denies any recent constitutional symptoms such as fevers or chills. She denies any significant cough. She has no abdominal complaints. She reports rare indigestion, manifests primarily by heartburn. She drinks daniel anil frequently but not necessarily for this malady. PHYSICAL EXAMINATION: GENERAL: The patient not appearing to be in any acute distress. She was alert and oriented. Mood and affect appear normal. She answered all questions appropriately. VITAL SIGNS: Included a blood pressure of 138/74, pulse of 76, respiratory rate was 18. HEENT: Sclerae are anicteric. Pupils equal and reactive to light and accommodation. Extraocular movements were intact. NECK: Supple and no really significant lymphadenopathy. The carotids are palpable bilaterally. I do not appreciate bruits on auscultation. There is no evidence of jugular venous distention. Thyroid was not enlarged. LUNGS: Auscultation of both lung souza are clear with only occasional crackle in the left base, which cleared with deep inspiration. There are no expiratory wheezes. She had normal respiratory effort without use of accessory muscles. HEART: Revealed her to be in regular rhythm. I do not appreciate any murmurs on exam. S1, S2 appeared normal. There was no displacement of the PMI on palpation. ABDOMEN: Soft and nontender. EXTREMITIES: Evaluation of both wrists reveal radial pulses are equal in intensity. There is no evidence of clubbing. Cyanosis could not be adequately assessed as the patient had nail tamazight on. Evaluation of lower extremities did not reveal any significant peripheral edema. I do not appreciate any rashes on examination today. LABORATORY STUDIES: Most recent CBC included white cell count of 6.3, hemoglobin of 13.4, platelet count of 256. Cardiac biomarkers were also obtained, which initially were 0.024 and then 0.035 all within the normal range. Chemistry profile revealed a sodium of 141, potassium of 4.4, BUN was 26, creatinine currently 1.3. The patient did undergo V-Q scan dated 01/23/2017 which was felt to be of intermediate probability. Venous duplex was obtained the day prior which did not reveal any evidence of lower extremity DVT. Single view chest x-ray was also obtained at the time of admission, which did not reveal any acute findings, perhaps some left basilar atelectasis. The patient had several EKGs obtained during this admission and were compared with old EKGs, these essentially revealed normal sinus rhythm with no significant ST or T-wave changes. The patient also underwent a stress echocardiography, this revealed slightly reduced left ventricular systolic function with an EF estimated 40%-45%. Echocardiographic images would suggest disease involving the inferior and inferolateral distribution consistent with coronary stenosis, mitral regurgitation was also noted and felt to be mild to moderate with only trace aortic insufficiency. No evidence of aortic stenosis. ASSESSMENT AND PLAN: 1. Noncardiac chest pain. Given the nature and duration of the patient's symptoms as well as the precipitating and relieving factors there did not appear to be any correlation between her symptoms and cardiac disease despite the abnormal stress test, there does not appear to be good correlation between her symptoms and coronary insufficiency. At this point evaluation is being undertaken to look for alternative etiologies of her pain. This may in fact be musculoskeletal given the character. 2. Mitral regurgitation, mild to moderate. 3. Aortic insufficiency. Only trace. 4. Abnormal stress echocardiogram. Based on the results of her stress echocardiogram it would seem reasonable to believe she has an element of fixed coronary stenosis involving the inferior coronary distribution likely a right coronary lesion. The patient does not describe symptoms of exertional angina or unstable angina. She has not suffered an obvious myocardial infarction based on her description of symptoms or biomarkers. She does have an element of left ventricular systolic dysfunction; however, given the absence of symptoms, it would seem reasonable to recommend a trial of medical therapy prior to any additional studies such as coronary angiography. Additionally, given likely chronic nature of her disease, there does not appear to be any urgent need for coronary angiography in the setting of renal insufficiency and the likelihood that she will undergo contrast administration with a CT scan in the near future, angiography is currently deferred. 5. Left ventricular systolic failure. The patient does have evidence of left ventricular systolic failure on her echocardiogram. This appears to be worse than her last evaluation approximately 1 year ago. She does now report symptoms consistent with pulmonary vascular congestion or heart failure, she does not have any edema or evidence on examination of decompensation. At this point it would seem reasonable to continue medical therapy, monitor symptoms and reevaluate her left ventricular systolic function longitudinally. The patient initially was on an ARB, which can be continued depending on her renal function and its improvement. The patient has been started on beta blockade which should be continued given the improved efficacy with long-acting metoprolol or carvedilol. I would consider changing the patient's metoprolol tartrate to either metoprolol succinate or carvedilol. Reevaluation of her left ventricular function can be performed as an outpatient. 6. Presumed coronary artery disease based on the patient's stress echocardiogram, we could presume that she has coronary artery disease and this will be a typical response to stress or dobutamine. The patient should be on aggressive secondary prevention measures. She has been started on high dose atorvastatin and a daily aspirin, beta blockade was discussed earlier in the consult. 7. Viral myocarditis. She has a remote history of viral myocarditis with reported improvement in her LV systolic function. Last evaluation on record was 1 year ago and it was normal. Whether her current LV dysfunction is related to a waxing and waning form of cardiomyopathy is unclear; however, given her stress echo results it is more likely related to chronic fixed coronary disease and appropriate measures for treatment and evaluation are listed above. BRANDON
[2017-01-26] MEDS: ASPIRIN 81 MG ECTAB PO SCH (21:28)
[2017-01-26] MEDS: VENLAFAXINE HCL XR 150 MG CAPXR PO SCH (21:29)
[2017-01-26] MEDS: AMLODIPINE BESYLATE 5 MG TAB PO SCH (21:31)
[2017-01-27] VITALS (7 sets, daily range): BP systolic 134–156; BP diastolic 67–81; PULSE 62–80; TEMP 36.4–37; O2SAT 94–98
[2017-01-27] MEDS: NITROGLYCERIN OINT 2% 1GM PACKET EXT SCH ×2 (04:49→10:00)
[2017-01-27 05:48] LABS: HEMATOCRIT 34.4 % (37-47); MEAN CELL VOLUME 90.8 fL (80-100); MEAN CORPUSCULAR HEMOGLOBIN 30.3 pg (25-34); MEAN CORPUSCULAR HGB CONC 33.4 g/dl (32-36); MEAN PLATELET VOLUME 9.1 fL (7.4-10.4); PLATELET COUNT 208 K/uL (130-400); RED BLOOD COUNT 3.79 M/uL (4.2-5.4); WHITE BLOOD COUNT 6.49 K/uL (4.8-10.8)
[2017-01-27 06:17] LABS: BUN/CREATININE RATIO 18.4 (10-20); CALCIUM 8.2 mg/dl (8.5-10.1); CREATININE 1.4 mg/dl (0.60-1.20); POTASSIUM 4.2 mmol/L (3.5-5.1)
[2017-01-27 06:20] LABS: CHOLESTEROL/HDL RATIO 2.3
[2017-01-27] MEDS: HEPARIN SOD 5000 UNIT/0.5 ML CARP SQ SCH ×2 (06:21→14:00)
[2017-01-27] MEDS: ATORVASTATIN 40 MG TAB PO SCH (09:45)
[2017-01-27] MEDS: METOPROLOL TARTRATE 25 MG TAB PO SCH (09:45)
--- NOTE | 2017-01-27 10:59 | Progress Note ---
Medicine Progress Note Date & Time of Visit: Jan 27, 2017 at 10:34. Subjective Pt was seen and examined Lying in bed comfortable with no discharge Pt said that one and off she does have the chest discomfort that usually occurs when she moves to her right side also she said that it cause some itching as well in her bad denies any rash, sob, palpitation pt said that her pcp is in [place] Objective Last 8 Hrs Date Time Temp Pulse Resp B/P Pulse Ox O2 Delivery O2 Flow Rate FiO2 01/27/17 09:45 Room Air 01/27/17 08:03 36.8 62 16 156/81 98 Room Air 01/27/17 04:49 36.4 64 18 154/78 95 Room Air 01/27/17 04:00 96 Room Air Physical Exam: General- No acute distress Head- atraumatic Eyes- PERRL, EOMI ENT- oropharynx clear Neck- supple, no JVD Lungs- clear to auscultation and percussion Heart- regular rhythm; no murmur Abdomen- normal bowel sounds, soft Extremities- no pretibial edema, no calf tenderness Neuro- alert, oriented x 3; PERRL, EOMI; no facial palsy Skin- warm & dry Laboratory Results: Last 24 Hours Test 01/27/17 05:16 White Blood Count 6.49 K/uL Red Blood Count 3.79 M/uL Hemoglobin 11.5 g/dL Hematocrit 34.4 % Mean Corpuscular Volume 90.8 fL Mean Corpuscular Hemoglobin 30.3 pg Mean Corpuscular Hemoglobin Concent 33.4 g/dl RDW Standard Deviation 43.2 fL RDW Coefficient of Variation 13.0 % Platelet Count 208 K/uL Mean Platelet Volume 9.1 fL Sodium Level 144 mmol/L Potassium Level 4.2 mmol/L Chloride Level 111 mmol/L Carbon Dioxide Level 23 mmol/L Anion Gap 10.0 mmol/L Blood Urea Nitrogen 26 mg/dl Creatinine 1.40 mg/dl Est Creatinine Clear Calc Drug Dose 30.0 ml/min Estimated GFR () 41.0 Estimated GFR (Non- 35.4 BUN/Creatinine Ratio 18.4 Random Glucose 94 mg/dl Calcium Level 8.2 mg/dl Triglycerides Level 60 mg/dl Cholesterol Level 138 mg/dl HDL Cholesterol 60 mg/dl LDL Cholesterol, Calculated 66 mg/dl VLDL Cholesterol, Calculated 12 mg/dl Cholesterol/HDL Ratio 2.3 Assessment & Plan CHEST PAIN Need to r/o ACS Intermittent chest pain x 3 months currently no chest pain Initial POC troponin 0.03 and serial tests are unremarkable CXR shows L base atelectasis; EKG- nonspecific T wave abnormality Continue baby aspirin and statin V/Q scan showed Intermediate Probability of PE Doppler u/s negative for DVT Has had Dobutamine Stress ECHO on 01/25/17::- * 1. Abnormal stress test suggestive of possible RCA or circumflex disease with peak dobutamine induced ischemia. * 2. Mild to moderate resting LV dysfunction. LVEF 40-45%. Inferior, inferolateral hypokinesis with paradoxical septal motion. * 3. Augmentation of inferior, inferolateral chaney with low dose dobutamine * 4. Negative dobutamine stress ECG at 95% MPHR * 5. Chest pain reproduced with palpation with echo probe. * 6. Normal RV size and function. * 7. Mild aortic valve sclerois without stenosis. Trace AI. * 8. Mild to moderate mitral regurgitation. * 9. Grade I diastolic dysfunction. * 10. Compared with prior rest echo on 01/16/2016: Resting LV wall motion abnormalities and mild-moderate LV dysfunction is new. Case discussed with Cardiology Dr. Jamison that recommended no further interventional therapy at this time and continue medical management with BB, statin, asa and restart ARB on discharge Acute Renal Failure Likely secondary to Dehydration Creat is 1.8 on Admission; baseline approximately 1 in Dec 2015; Renal US showed multiple bilateral renal cysts and no hydronephrosis Continue to hold losartan/ HCTZ, meloxicam, and methylprednisolone Creatinine today is 1.4 Creatinine remains at 1.40 seems that her baseline Monitor BMP will check BMP within 1 week of discharge Stable HYPERTENSION HCTZ/ losartan on hold due to VITOR on amlodipine 2.5 mg Will discharge on losartan on discharge Continue BB Continue monitor BP HISTORY OF VIRAL MYOCARDITIS In approximately 1989 patient had EF of 15% which has normalized Echo 01/16/16- EF 55%, grade 1 diastolic dysfunction, mild biatrial enlargement, mild AV sclerosis, mild mitral regurgitation Clinically euvolemic on exam Stable BIPOLAR DISORDER continue Effexor Stable DVT PROPHYLAXIS Heparin SQ CODE STATUS Full code Disposition Will discharge today home Check BMP within 1 week Call your pcp in [place] to schedule a follow up appointment Consultants: cardiology Current Inpatient Medications: Current Inpatient Medications Medications (Trade) Dose Ordered Sig/Chinedu Route Start Time Stop Time Status Last Admin Dose Admin Heparin Sodium (Porcine) (Heparin Sq 5000 Unit/0.5ml) 5,000 unit Q8 SQ 01/23/17 06:00 02/22/17 05:59 01/27/17 06:21 5,000 UNIT Acetaminophen (Tylenol Tab) 650 mg Q4H PRN PO 01/22/17 21:00 02/21/17 20:59 01/25/17 21:04 650 MG Ondansetron HCl (Zofran Inj) 4 mg Q6H PRN IV 01/22/17 21:00 02/21/17 20:59 Amlodipine Besylate (Norvasc Tab) 2.5 mg HS PO 01/22/17 21:00 02/21/17 20:59 01/26/17 21:31 2.5 MG Aspirin (Ecotrin Tab) 81 mg HS PO 01/23/17 21:00 02/22/17 20:59 01/26/17 21:28 81 MG Venlafaxine HCl (effeXOR EXTENDED REL CAP) 150 mg HS PO 01/22/17 21:00 02/21/17 20:59 01/26/17 21:29 150 MG Miscellaneous (Iv Fluids Completed) 1 ea PRN PRN N/A 01/22/17 21:30 01/22/18 21:29 01/26/17 09:51 1 EA Metoprolol Tartrate (Lopressor Tab) 12.5 mg BID PO 01/26/17 10:00 02/25/17 09:59 01/27/17 09:45 12.5 MG Atorvastatin Calcium (Lipitor Tab) 80 mg QAM PO 01/26/17 09:00 02/25/17 08:59 01/27/17 09:45 80 MG Nitroglycerin (Nitroglycerin 2% Oint) 0.5 inch Q6H EXT 01/26/17 10:00 02/25/17 09:59 01/27/17 04:49 0.5 INCH
[2017-01-27] MEDS ORDERED: LPT40 PO (14:27)
[2017-01-27] MEDS ORDERED: LPR25 PO (14:27)
[2017-01-27] MEDS ORDERED: LOSA100T65 PO (14:27)
--- NOTE | 2017-01-27 14:37 | Discharge Instructions ---
Discharge Instructions Admission Reason for Admission: [place], Chest Pain Discharge Discharge Diagnosis / Problem: Chest pain, Acute Kidney Failure, Hypertension Discharge Goals Goal(s): Decrease discomfort, Improve function, Improve disease control Activity Recommendations Activity Limitations: resume your previous activity (as tolerated) . Instructions / Follow-Up Instructions / Follow-Up Please call your physician in [place] to schedule a follow up appointment Avoid medications that can damage your kidney such as NSAIDs (meloxicam, aleve, ibuprofen, motrin, naproxen) Check lab for the kidney within 1 week Current Hospital Diet Patient's current hospital diet: AHA Diet (Heart Healthy) Discharge Diet Recommended Diet: AHA Diet (Heart Healthy) Procedures Procedures Performed: Dobutamine stress echo Pending Studies Studies pending at discharge: no Laboratory Results Lipid Panel Test 01/27/17 05:16 Range/Units Triglycerides Level 60 0-150 mg/dl Cholesterol Level 138 0-200 mg/dl HDL Cholesterol 60 mg/dl Cholesterol/HDL Ratio 2.3 LDL Cholesterol, Calculated 66 mg/dl Medical Emergencies . Who to Call and When: Medical Emergencies: If at any time you feel your situation is an emergency, please call 911 immediately. . Non-Emergent Contact Non-Emergency issues call your: Primary Care Provider Call Non-Emergent contact if: you have any medication questions . . "Provider Documentation" section prepared by Micaela Reaves. VTE Core Measure Inpt VTE Proph given/why not?: Unfractionated heparin SQ
--- NOTE | 2017-02-02 07:42 | Discharge Summary ---
Discharge Summary Date of Service Feb 02, 2017. Discharge Summary Admission Date: Jan 22, 2017 at 20:49 Discharge Date: Jan 27, 2017 Discharge Disposition: Home Principal Diagnosis: Chest pain Secondary Diagnoses/Problems: Acute renal function HTN HISTORY OF VIRAL MYOCARDITIS Bipolar Disorder Procedures: Dobutamine stress test Echo Interpretation Summary * Name: MUSA PARK Study Date: 01/25/2017 09:03 AM BP: 157/81 mmHg * Patient Location: [facility]\\\\85\\S\\2 HR: 63 * : 1935 (M/d/yyyy) Gender: Female Height: 66 in * Age: 81 yrs Ethnicity: AA Weight: 152 lb * Ordering Physician: Mecca Bangura * Referring Physician: Self, Referred * Performed By: Teodoro Suh RCS * * Reason For Study: Chest Pain * BSA: 1.8 m2 * -- Conclusions -- * 1. Abnormal stress test suggestive of possible RCA or circumflex disease with peak dobutamine induced ischemia. * 2. Mild to moderate resting LV dysfunction. LVEF 40-45%. Inferior, inferolateral hypokinesis with paradoxical septal motion. * 3. Augmentation of inferior, inferolateral chaney with low dose dobutamine * 4. Negative dobutamine stress ECG at 95% MPHR * 5. Chest pain reproduced with palpation with echo probe. * 6. Normal RV size and function. * 7. Mild aortic valve sclerois without stenosis. Trace AI. * 8. Mild to moderate mitral regurgitation. * 9. Grade I diastolic dysfunction. * 10. Compared with prior rest echo on 01/16/2016: Resting LV wall motion abnormalities and mild-moderate LV dysfunction is new. Procedure Details * DOBUTAMINE ECHO, CPT#66261 * ECHO COLOR FLOW, CPT #54424 * ECHO DOPPLER, CPT #28177 * A contrast injection of Definity was performed to improve assessment of LV function. * Contrast was injected into an intravenous site in the right arm. * One vial of Definity ultrasound contrast was diluted in normal saline to a total volume of 10 ml. A total of '6' ml of solution was administered during imaging. * Lot # [id number] of Definity utilized for procedure. * Expiration date 1JAN18. * The attending nurse who injected the contrast agent was Savanah Snowden RN. Left Ventricle * The left ventricle is grossly normal size. * There is normal left ventricular wall thickness. * Ejection Fraction = 40-45%. * Inferior, inferolateral moderate hypokinesis at rest. Paradoxical septal motion Inferior, inferolateral wall motion improves at low dose dobtuamine and worsens at peak stress. Right Ventricle * The right ventricle is grossly normal size. * The right ventricular systolic function is normal as assessed by tricuspid annular plane systolic excursion (TAPSE) (normal >1.5 cm). Atria * The left atrial size is normal. * The right atrium is mildly dilated. * No ASD detected; PFO is not assessed. Mitral Valve * The mitral valve is grossly normal. * There is no mitral valve stenosis. * There is mild to moderate mitral regurgitation. Tricuspid Valve * The tricuspid valve is not well visualized, but is grossly normal. * There is mild to moderate tricuspid regurgitation. * Right ventricular systolic pressure is normal. Aortic Valve * Aortic valve sclerosis mild, without significant aortic valvular stenosis. * The aortic valve is not well visualized. * No hemodynamically significant valvular aortic stenosis. * Trace aortic regurgitation. Pulmonic Valve * The pulmonary valve is inadequately visualized, but the Doppler data is adequate for interpretation. * Trace pulmonic valvular regurgitation. Great Vessels * The aortic root and proximal ascending aorta are normal sized. Pericardium * There is no pericardial effusion. Stress Parameters * Normal baseline electrocardiogram. * Stress ECG: No ST changes. No arrhythmias. * Arrhythmia induced during stress: occasional PVC's. * The stress portion of this study was personally supervised by the undersigned interpreting physician. * Rest heart rate was '63' BPM. * Rest blood pressure was '157/81' * Maximum heart rate achieved was 133 bpm. * Maximum heart rate was 95 % of maximum age-predicted heart rate. * Maximum blood pressure was '182/89' * Maximum Dobutamine infusion rate was '50' mcg/kg/min. * A total of .25 mg of intravenous Atropine was used to supplement Dobutamine for heart rate response. * Dobutamine infusion was terminated due to achieving target heart rate * A total of 5 mg of IV Metoprolol was administered to reverse Dobutamine- induced tachycardia. * Normal blood pressure response to exercise. Left Ventricular Diastolic Function * Grade I diastolic dysfunction, (abnormal relaxation pattern). Consultations: cardiology Medication Reconciliation New Medications: Losartan Potassium (Cozaar) 100 Mg Tab 100 MG PO DAILY for 30 Days, #30 TAB Atorvastatin (Atorvastatin Calcium) 40 Mg Tab 80 MG PO QAM for 30 Days, #60 TAB Metoprolol Tartrate (Lopressor) 25 Mg Tab 12.5 MG PO BID for 30 Days, #30 TAB Continued Medications: Amlodipine Besylate (Norvasc) 2.5 Mg Tab 2.5 MG PO HS Aspirin (Aspirin Ec) 81 Mg Tab 81 MG PO HS Venlafaxine Hcl (Effexor Extended Rel) 150 Mg Cap 150 MG PO HS Discontinued Medications: Hctz/Losartan (Hyzaar 25MG/100MG) Tab 1 TAB PO QPM, TAB Meloxicam (Mobic) 7.5 Mg Tab 7.5 MG PO HS Methylprednisolone (Methylprednisolone Dose P) 1 Pkt Tab UD, #21 Simvastatin (Simvastatin) 10 Mg Tab 10 MG PO QPM Admission Information HPI (per Admitting provider): This is an 81 year old female with PMH of CKD, HTN, dyslipidemia, 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 Patient states she has chest pain intermittently x 3 months. She reports having a mammogram, ultrasound, and biopsy of her breast which was benign. She was seen by her PCP in [place] 4 days ago who ordered a chest x- ray and prescribed a steroid which she took 1 dose of this morning. The CXR was done at [facility] on 01/19/17 which showed mild L basilar opacity suggestive of atelectasis. Pt states her PCP called her and instructed her to present to the ER. Patient states the chest pain is present whenever she lies on her right side and also occurs sporadically a few times throughout the day. She describes it as squeezing or stinging behind the left breast with radiation of itching or burning pain to her back. Denies any rashes or history of shingles. She is not having any chest pain currently. She reports chronic occasional palpitations. She denies ELLIOTT when she ambulates, although she does not climb stairs or walk briskly secondary to her chronic hip pain and is mostly sedentary at home. She has been eating normally and drinking plenty of fluids. Denies fever, chills, diaphoresis, URI symptoms, cough, SOB, orthopnea, abdominal pain, N/V/D, urinary changes, weight gain, edema, calf pain, anxiety, heavy lifting. She had a [address] when she traveled to and from [place] earlier this week. No other travel. No recent surgery. Denies history of CAD. She has not had a cath as per Dr. Jaquez's cardiology consultation in Dec 2015. Denies history of PE or DVT. She does take meloxicam daily. Physical Exam (per Admitting): General Appearance: WD/WN, no apparent distress Head: normocephalic, atraumatic Eyes: normal inspection, PERRL, EOMI ENT: hearing grossly normal, pharynx normal Neck: trachea midline, + JVD Respiratory/Chest: chest non-tender, lungs clear, normal breath sounds, no respiratory distress, no accessory muscle use Cardiovascular: regular rate, rhythm, no murmur, normal peripheral pulses Abdomen/GI: normal bowel sounds, non tender, soft Back: + pertinent finding (no thoracic paraspinal muscle tenderness) Extremities/Musculoskelatal: no calf tenderness, no pedal edema Neurologic/Psych: alert, normal mood/affect, oriented x 3, + pertinent finding (grossly nonfocal) Skin: normal color, warm/dry, no rash (no rash on the left breast area or back ) Hospital Course CHEST PAIN Need to r/o ACS Intermittent chest pain x 3 months currently no chest pain Initial POC troponin 0.03 and serial tests are unremarkable CXR shows L base atelectasis; EKG- nonspecific T wave abnormality Continue baby aspirin and statin V/Q scan showed Intermediate Probability of PE Doppler u/s negative for DVT Has had Dobutamine Stress ECHO on 01/25/17::- * 1. Abnormal stress test suggestive of possible RCA or circumflex disease with peak dobutamine induced ischemia. * 2. Mild to moderate resting LV dysfunction. LVEF 40-45%. Inferior, inferolateral hypokinesis with paradoxical septal motion. * 3. Augmentation of inferior, inferolateral chaney with low dose dobutamine * 4. Negative dobutamine stress ECG at 95% MPHR * 5. Chest pain reproduced with palpation with echo probe. * 6. Normal RV size and function. * 7. Mild aortic valve sclerois without stenosis. Trace AI. * 8. Mild to moderate mitral regurgitation. * 9. Grade I diastolic dysfunction. * 10. Compared with prior rest echo on 01/16/2016: Resting LV wall motion abnormalities and mild-moderate LV dysfunction is new. Case discussed with Cardiology Dr. Jamison that recommended no further interventional therapy at this time and continue medical management with BB, statin, asa and restart ARB on discharge Acute Renal Failure Likely secondary to Dehydration Creat is 1.8 on Admission; baseline approximately 1 in Dec 2015; Renal US showed multiple bilateral renal cysts and no hydronephrosis Continue to hold losartan/ HCTZ, meloxicam, and methylprednisolone Creatinine today is 1.4 Creatinine remains at 1.40 seems that her baseline Monitor BMP will check BMP within 1 week of discharge Stable HYPERTENSION HCTZ/ losartan on hold due to VITOR on amlodipine 2.5 mg Will discharge on losartan on discharge Continue BB Continue monitor BP HISTORY OF VIRAL MYOCARDITIS In approximately 1989 patient had EF of 15% which has normalized Echo 01/16/16- EF 55%, grade 1 diastolic dysfunction, mild biatrial enlargement, mild AV sclerosis, mild mitral regurgitation Clinically euvolemic on exam Stable BIPOLAR DISORDER continue Effexor Stable DVT PROPHYLAXIS Heparin SQ CODE STATUS Full code Disposition Will discharge today home Check BMP within 1 week Call your pcp in [place] to schedule a follow up appointment Total time spent on discharge = 35 minutes This includes examination of the patient, discharge planning, medication reconciliation, and communication with other providers. Discharge Instructions Discharge Instructions Admission Reason for Admission: Vitor, Chest Pain Discharge Discharge Diagnosis / Problem: Chest pain, Acute Kidney Failure, Hypertension Discharge Goals Goal(s): Decrease discomfort, Improve function, Improve disease control Activity Recommendations Activity Limitations: resume your previous activity (as tolerated) . Instructions / Follow-Up Instructions / Follow-Up Please call your physician in [place] to schedule a follow up appointment Avoid medications that can damage your kidney such as NSAIDs (meloxicam, aleve, ibuprofen, motrin, naproxen) Check lab for the kidney within 1 week Current Hospital Diet Patient's current hospital diet: AHA Diet (Heart Healthy) Discharge Diet Recommended Diet: AHA Diet (Heart Healthy) Procedures Procedures Performed: Dobutamine stress echo Pending Studies Studies pending at discharge: no Laboratory Results Lipid Panel Test 01/27/17 05:16 Range/Units Triglycerides Level 60 0-150 mg/dl Cholesterol Level 138 0-200 mg/dl HDL Cholesterol 60 mg/dl Cholesterol/HDL Ratio 2.3 LDL Cholesterol, Calculated 66 mg/dl Medical Emergencies . Who to Call and When: Medical Emergencies: If at any time you feel your situation is an emergency, please call 911 immediately. . Non-Emergent Contact Non-Emergency issues call your: Primary Care Provider Call Non-Emergent contact if: you have any medication questions . . "Provider Documentation" section prepared by Micaela Reaves. VTE Core Measure Inpt VTE Proph given/why not?: Unfractionated heparin SQ Additional Copies To Fermin Olvera M.D.
[2017-08-19] MEDS ORDERED: PRD20 PO (15:51)
[2017-08-19] MEDS ORDERED: TRAM-10 PO (16:23)
== END 2017-01-27 17:45 | disposition home or self-care (01) ==
LOC: ENRESERVTM → ENRESERVDT → C.EDB 15:54 → C.MED 20:49
PROVIDERS: ADMIT Hospitalist; ATTEND Internal Medicine
DX: R07.89 Other chest pain (principal); N17.9 Acute kidney failure, unspecified; F31.9 Bipolar disorder, unspecified; N28.1 Cyst of kidney, acquired; N18.9 Chronic kidney disease, unspecified; I12.9 Hypertensive chronic kidney disease with stage 1 through stage 4 chronic kidney disease, or unspecified chronic kidney disease; E78.5 Hyperlipidemia, unspecified; E86.0 Dehydration; I08.0 Rheumatic disorders of both mitral and aortic valves; Z96.643 Presence of artificial hip joint, bilateral; Z90.49 Acquired absence of other specified parts of digestive tract; Z79.82 Long term (current) use of aspirin; Z87.891 Personal history of nicotine dependence; Z91.013 Allergy to seafood; Z82.49 Family history of ischemic heart disease and other diseases of the circulatory system

== ENCOUNTER → 2017-02-01 | Outpatient (CLI) | payer BC ==
[~2017-02-01] MED LIST changes: +BNC5 PO; +FURO-85 PO; -HYZ/10015 PO; +LOSA100T65 PO; +LPR25 PO; +LPT10 PO; +LPT40 PO; +LSX20 PO; -MELO7.5T5 PO; +OLME5TAB3 PO; +PRD20 PO; -SIMV-150 PO; +TPRSR/50 PO; +TPRSR25 PO
[2017-02-01 10:05] LABS: ALT/SGPT 26 U/L (12-78); BLOOD UREA NITROGEN 28 mg/dl (7-18); BUN/CREATININE RATIO 18.6 (10-20); CALCIUM 8.7 mg/dl (8.5-10.1); CARBON DIOXIDE 24 mmol/L (21-32); CHLORIDE 110 mmol/L (98-107); GLUCOSE 100 mg/dl (70-99); POTASSIUM 4.3 mmol/L (3.5-5.1); SODIUM 146 mmol/L (136-145)
[2017-02-01 10:08] LABS: ALB/GLOB RATIO 0.9 (0.9-2); ALKALINE PHOSPHATASE 112 U/L (45-117); AST/SGOT 13 U/L (15-37)
--- NOTE | 2017-02-02 12:24 | CODING QUERY NO DIAGNOSIS ---
TREATMENT RENDERED WITHOUT A DIAGNOSIS 36 To promote full compliance with coding requirements relating to patient care, physician participation is requested in all cases of agricultural research director uncertainty. Please assist us with providing a diagnosis/symptom for the test(s) below: A diagnosis/symptom was not documented on your Order. A valid diagnosis/symptom is required to bill all insurances. Please remember that we are unable to code a diagnosis of rule out, probable, possible, questionable, or suspected. DOS 02/01/17 Tests that require a diagnosis: * COMPREHENSIVE METABOLIC DIAGNOSIS: Provider Signature: Date: Thank you Rosa Hallman [employer] Once completed, please kindly fax back to [phone] For questions please call [phone]
== END | disposition home or self-care (01) ==
LOC: C.LAB 08:59
PROVIDERS: ATTEND Internal Medicine
DX: Z00.00 Encounter for general adult medical examination without abnormal findings (principal)

== ENCOUNTER → 2017-05-03 | Outpatient (CLI) | payer BC ==
[~2017-05-03] MED LIST changes: -LOSA100T65 PO
--- NOTE | 2017-05-03 16:02 | MAMMOGRAPHY REPORT ---
UNILATERAL RIGHT DIGITAL DIAGNOSTIC MAMMOGRAM TOMOSYNTHESIS WITH CAD AND TARGETED RIGHT ULTRASOUND: CLINICAL HISTORY: 82-year-old woman presents for follow-up in the right breast. 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 The right breast follow-up is for a small 3 mm circumscribed mass in the far posterior inferior right breast, only seen on the MLO view. TECHNIQUE: Right CC and MLO 2-D digital and tomosynthesis images were obtained. Current study was a lso evaluated with a Computer Aided Detection (CAD) system. COMPARISON: Comparison is made to exams dated: 11/06/2016 ultrasound biopsy, 11/06/2016 mammogram, ultrasound, 10/21/2016 mammogram, 10/06/2016 mammogram - , and 04/29. BREAST COMPOSITION: The tissue of the right breast is heterogeneously dense, which may obscure small masses. FINDINGS: There is a new circumscribed 13 mm mass in the 11:00 anterior right breast. Further evalua tion with ultrasound was performed. There are stable benign coarse calcifications in the right breas t. In the far posterior inferior right breast on the MLO view, there is a circumscribed, 3.7 x 3.4 m m mass. No evidence of associated architectural distortion or cluster microcalcification. When comp aring to the prior mammograms, this is unchanged in size, shape and appearance to the 10/06/2016 mamm ogram. Further evaluation with ultrasound was performed. There are no new suspicious clustered micr o-calcifications or focal areas of architectural distortion. Targeted ultrasound was performed in the inferior right breast and also in the 11:00 to 12:00 axis to assess for the Circumscribed mammographic mass. In the 11:00 periareolar right breast, there is a well-circumscribe d oval parallel anechoic cyst with posterior acoustic enhancement measuring 10.4 x 7.2 x 10.3 mm and an adjacent 4 mm anechoic cyst. These cysts are benign and no further workup is needed at this time. In the 5:00 periareolar right breast, there is a small isoechoic to hypoechoic circumscribed parallel lobulated mass measuring 2.9 x 1.8 x 2.8 mm, this was previously identified, measuring 3.1 x 1.9 x 2 .9 mm, and is considered unchanged. An oval parallel circumscribed anechoic cyst in the 3:30 right b reast, 4 cm from the nipple measures 3.7 x 2.2 x 3.2 mm. This may correlate with the mammographic ma ss in the inferior far posterior breast and May BE slightly decreased comparing to the prior ultrasou nd. In the 4:00 right breast, 1 cm from the nipple, there is an isoechoic circumscribed mass measuri ng 2.5 x 1.9 x 2.5 mm, previously labeled right 3:00 breast, 3 cm from the nipple and measured 2.7 x 2.0 x 2.1 mm. A lobulated hypoechoic solid-appearing mass in the 8:00 periareolar right breast measu res 2.7 x 2.9 x 4.1 mm. No mass is currently seen in the 9:00 right breast. IMPRESSION: ACR-BI-RADS CATEGORY 3: PROBABLY BENIGN, TARGETED ULTRASOUND ACR-BI-RADS CATEGORY 3: PRO BABLY BENIGN 1. There is a stable circumscribed 3 mm mass in the far posterior inferior right breast on the MLO v iew with the nipple in profile, that is unchanged in size comparing to the 10/06/2016 mammogram. The re are numerous cysts and hypoechoic circumscribed masses in the inferior right breast on ultrasound, particularly within the 3:00, 3:30, 4:00 and 8:00 axes, and it is unclear which of these may correla te with the mammographic finding. However they are all stable based on prior ultrasound except a mas s previously seen in the 9:00 axis is no longer identified. Incidental note is made of a new cyst in the 11:00 periareolar right breast. Another six-month follow-up diagnostic right mammogram and poss ible repeat ultrasound is recommended to ensure longer stability of the mammographic finding. Annual left mammography is also due at that time. These results and recommendations were discussed with the patient at the time of the exam. Approximately 10% of breast cancers are not detected with mammography. A negative mammographic report should not delay biopsy if a clinically suggestive mass is present. Ebonie Peguero M.D. ay/:05/03/2017 13:41:22 Artificial Breeding Distributor: Emily SMITH(Senthil)(M), letter sent: Follow Up Recommended 3 BI-RADS Code: ACR-BI-RADS Category 3: Probably Benign Ultrasound BI-RADS: ACR-BI-RADS Category 3: Pr obably Benign
== END | disposition home or self-care (01) ==
LOC: C.MAMM 10:29
PROVIDERS: ATTEND Internal Medicine
DX: R92.8 Other abnormal and inconclusive findings on diagnostic imaging of breast (principal); N63 Unspecified lump in breast

== ENCOUNTER 2017-06-02 11:31 | Inpatient (IN) | payer BC, OTHER ==
[~2017-06-02] VITALS: Ht 167.6 cm; Wt 66.5 kg
[~2017-06-02 11:31] MED LIST changes: -BNC5 PO; -FURO-85 PO; -LPT10 PO; -LSX20 PO; -OLME5TAB3 PO; -PRD20 PO; -TPRSR/50 PO; -TPRSR25 PO; -TRAM-10 PO
[2017-06-02] MEDS ORDERED: LPT10 PO (12:02)
[2017-06-02] MEDS ORDERED: BNC5 PO (12:02)
[2017-06-02 12:27] LABS: BASO % 0.4 %; BASO ABS # 0.02 K/uL (0-0.2); COMPLETE YES; HEMATOCRIT 35.3 % (37-47); IG% 0.2 %; LYMPH % 24.3 %; LYMPH ABS # 1.34 K/uL (1.2-3.4); MEAN CORPUSCULAR HEMOGLOBIN 29.4 pg (25-34); MEAN CORPUSCULAR HGB CONC 32.3 g/dl (32-36); MONO % 8.7 %; NEUT % 64.4 %; PLATELET COUNT 262 K/uL (130-400); RED BLOOD COUNT 3.88 M/uL (4.2-5.4); WHITE BLOOD COUNT 5.51 K/uL (4.8-10.8)
--- NOTE | 2017-06-02 12:33 | DIAGNOSTIC IMAGING REPORT ---
CHEST ONE VIEW PORTABLE CLINICAL HISTORY: cough/sob COMPARISON STUDY: 01/22/2017 FINDINGS: The heart is mildly enlarged. There is mild interstitial thickening/edema. There is no lobar consolidation. No significant pleural effusions are visualized.[ IMPRESSION: Mild cardiomegaly with mild interstitial thickening/edema. No evidence of lobar consolidation. Electronically signed by: Steve Samuels M.D. 06/02/2017 12:32 PM Dictated Date/Time: 06/02/2017 12:30 PM
[2017-06-02 12:46] LABS: BUN/CREATININE RATIO 18.9 (10-20); CALCIUM 8.5 mg/dl (8.5-10.1); CREATININE 1.6 mg/dl (0.60-1.20)
[2017-06-02 12:48] LABS: ALB/GLOB RATIO 0.9 (0.9-2)
[2017-06-02] MEDS ORDERED: FUROSEMIDE 40 MG/4 ML VIAL IV STA (13:26)
[2017-06-02 14:00] LABS: POINT OF CARE TROPONIN I 0.06 ng/ml (0-0.045)
--- NOTE | 2017-06-02 15:41 | EMERGENCY ROOM VISIT NOTE ---
History Report prepared by Kristian: Wayne Bess Under the Supervision of: Dr. Steffanie Womack M.D. First contact with patient: 12:34 Chief Complaint: COUGH Stated Complaint: PERSISTANT COUGH History of Present Illness The patient is a 82 year old female who presents to the Emergency Room with complaints of a persistent non-productive cough beginning 9 days ago. Her cough is worsened with laying down and exertion. She states that she experiences some pain in her chest with coughing. The patient denies any fevers, chills, diaphoresis, or SOB. She notes that she travelled to [place] by car this past week. She denies any recent surgeries or hospitalizations. The patient has a history of mitral regurgitation. She also complains of generalized weakness and notes that she has not been sleeping well this past week. Source of History: patient Onset: 9 days ago Quality: other (non-productive cough) Timing: other (persistent) Modifying Factors (Worsening): exertion, other (Laying down) Associated Symptoms: + chest pain (with coughing), + weakness (weakness), No fevers, No chills, No diaphoresis, No SOB Review of Systems See HPI for pertinent positives & negatives. A total of 10 systems reviewed and were otherwise negative. 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 Surgical Problems: (1) History of hysterectomy (2) History of left hip replacement (3) History of right hip replacement (4) S/P appendectomy (5) S/P ORIF (open reduction internal fixation) fracture (6) Status post left hip replacement Family History FH: CHF (congestive heart failure) FATHER MOTHER BROTHER Social History Smoking Status: Former Smoker Drug Use: none Marital Status: Housing Status: assisted living Occupation Status: retired Current/Historical Medications Scheduled Amlodipine Besylate (Norvasc), 2.5 MG PO HS Aspirin (Aspirin Ec), 81 MG PO HS Atorvastatin (Atorvastatin Calcium), 10 MG PO DAILY Olmesartan Medoxomil (Benicar), Unknown Dose PO DAILY Venlafaxine Hcl (Effexor Extended Rel), 150 MG PO HS Allergies Coded Allergies: Lobster (Verified Adverse Reaction, Intermediate, GI SYMPTOMS, 01/22/17) per pt report. Physical Exam Vital Signs Date Time Temp Pulse Resp B/P (MAP) Pulse Ox O2 Delivery O2 Flow Rate FiO2 06/02/17 16:26 93 Room Air 06/02/17 15:09 94 20 128/69 93 Room Air 06/02/17 13:51 95 06/02/17 13:30 86 22 143/101 97 Room Air 06/02/17 13:05 96 Room Air 06/02/17 11:35 36.7 68 20 135/82 96 Room Air Physical Exam Vital signs reviewed. General: Well-appearing female, in no significant distress. HEENT: No scleral icterus, PERRLA, neck supple. Atraumatic. JVD noted. Cardiovascular: Regular rate and rhythm, no extra sounds. Pulmonary: Faint crackles bilaterally, normal work of breathing. Abdomen: Soft, nontender, nondistended, positive bowel sounds. Musculoskeletal: Atraumatic, no peripheral edema. Neurologic: Patient awake alert and oriented x 3, full strength in all 4 extremities. Cranial nerves 2 through 12 grossly intact. Skin: Warm, dry, no rash Medical Decision & Procedures ER Provider Diagnostic Interpretation: X-ray results as stated below per interpretation by me and the radiologist: CHEST ONE VIEW PORTABLE FINDINGS: The heart is mildly enlarged. There is mild interstitial thickening/edema. There is no lobar consolidation. No significant pleural effusions are visualized.[ IMPRESSION: Mild cardiomegaly with mild interstitial thickening/edema. No evidence of lobar consolidation. Electronically signed by: Steve Samuels M.D. Laboratory Results 06/02/17 12:15 Red Blood Count 3.88, Mean Corpuscular Volume 91.0, Mean Corpuscular Hemoglobin 29.4, Mean Corpuscular Hemoglobin Concent 32.3, Mean Platelet Volume 9.0, Neutrophils (%) (Auto) 64.4, Lymphocytes (%) (Auto) 24.3, Monocytes (%) (Auto) 8.7, Eosinophils (%) (Auto) 2.0, Basophils (%) (Auto) 0.4, Neutrophils # (Auto) 3.55, Lymphocytes # (Auto) 1.34, Monocytes # (Auto) 0.48, Eosinophils # (Auto) 0.11, Basophils # (Auto) 0.02 06/02/17 12:15 Test 06/02/17 12:15 06/02/17 13:42 White Blood Count 5.51 K/uL (4.8-10.8) Red Blood Count 3.88 M/uL (4.2-5.4) Hemoglobin 11.4 g/dL (12.0-16.0) Hematocrit 35.3 % (37-47) Mean Corpuscular Volume 91.0 fL (80-100) Mean Corpuscular Hemoglobin 29.4 pg (25-34) Mean Corpuscular Hemoglobin Concent 32.3 g/dl (32-36) Platelet Count 262 K/uL (130-400) Mean Platelet Volume 9.0 fL (7.4-10.4) Neutrophils (%) (Auto) 64.4 % Lymphocytes (%) (Auto) 24.3 % Monocytes (%) (Auto) 8.7 % Eosinophils (%) (Auto) 2.0 % Basophils (%) (Auto) 0.4 % Neutrophils # (Auto) 3.55 K/uL (1.4-6.5) Lymphocytes # (Auto) 1.34 K/uL (1.2-3.4) Monocytes # (Auto) 0.48 K/uL (0.11-0.59) Eosinophils # (Auto) 0.11 K/uL (0-0.5) Basophils # (Auto) 0.02 K/uL (0-0.2) RDW Standard Deviation 46.0 fL (36.4-46.3) RDW Coefficient of Variation 13.9 % (11.5-14.5) Immature Granulocyte % (Auto) 0.2 % Immature Granulocyte # (Auto) 0.01 K/uL (0.00-0.02) Anion Gap 8.0 mmol/L (3-11) Est Creatinine Clear Calc Drug Dose 25.8 ml/min Estimated GFR () 34.7 Estimated GFR (Non- 29.9 BUN/Creatinine Ratio 18.9 (10-20) Calcium Level 8.5 mg/dl (8.5-10.1) Total Bilirubin 0.4 mg/dl (0.2-1) Aspartate Amino Transf (AST/SGOT) 39 U/L (15-37) Alanine Aminotransferase (ALT/SGPT) 67 U/L (12-78) Alkaline Phosphatase 124 U/L (45-117) Total Protein 7.0 gm/dl (6.4-8.2) Albumin 3.3 gm/dl (3.4-5.0) Globulin 3.7 gm/dl (2.5-4.0) Albumin/Globulin Ratio 0.9 (0.9-2) Bedside Troponin I 0.060 ng/ml (0-0.045) CP-Vtp-S-Type Natriuretic Peptide 4159 pg/ml (0-1800) Laboratory results per my review. Medications Administered Medications (Trade) Dose Ordered Sig/Chinedu Route Start Time Stop Time Status Last Admin Dose Admin Furosemide (Lasix Inj) 20 mg NOW STAT IV 06/02/17 13:26 06/02/17 13:28 DC 06/02/17 13:48 20 MG ECG Indication: other (cough) Rate (beats per minute): 85 Rhythm: sinus rhythm Findings: prolonged QT (QTC of 487), other (T-wave flattening diffusely. Premature supraventricular complexes.) ED Course 1235: Past medical records reviewed. The patient was evaluated in room B7. A complete history and physical examination was performed. 1326: Ordered Lasix Inj 20 mg IV. 1535: Upon reevaluation, the patient is resting comfortably. I discussed laboratory and radiographic results with her. She verbalized agreement of the treatment plan. I spoke with Dr. Wei of the [facility] Hospitalist Service. The patient will be evaluated for further management and care. Medical Decision Differential diagnosis: Etiologies such as infections, reactive airway disease, pneumonia, pneumothorax , COPD, CHF, cardiac ischemia, pulmonary embolism, musculoskeletal, gastrointestinal, as well as others were entertained. This patient was evaluated and appeared to be in no significant distress. Physical examination reveals faint crackles and positive JVD. Chest x-ray was performed and reveals a mild congestive heart failure. BNP is elevated, troponin is mildly elevated. Patient does take aspirin daily. She was given 20 mg of IV Lasix as her creatinine is 1.6. EKG reveals diffuse T wave flattening. Patient was informed of the findings. I did speak with her daughter via telephone. I spoke with the hospitalist service for further management. Consults Time Called: 1526 Consulting Physician: Dr. Wei -SERAFIN Returned Call: [phone] I reviewed the patient's case with Dr. Wei. SERAFIN will evaluate the patient for further management. Impression Primary Impression: CHF (congestive heart failure) Additional Impression: Elevated troponin Scribe Attestation The scribe's documentation has been prepared under my direction and personally reviewed by me in its entirety. I confirm that the note above accurately reflects all work, treatment, procedures, and medical decision making performed by me. Departure Information Dispostion Being Evaluated By Hospitalist Referrals Fermin Olvera M.D. (PCP) Patient Instructions My [facility] Problem Qualifiers
[2017-06-02 16:26] VITALS: O2SAT 93; Ht 167.6 cm; Wt 66.5 kg
--- NOTE | 2017-06-02 17:55 | History and Physical ---
History & Physical Date & Time of Service: Jun 02, 2017 at 17:31 Chief Complaint: Persistant Cough Primary Care Physician: Fermin Olvera M.D. History of Present Illness Source: patient 82 year old female with hypertension and Hx viral myocarditis (17-18 years previously) presents with 1.5 weeks history of sudden onset shortness of breath and dry cough. Her symptoms woke her up 9 days previously. Worse with lying down and exertion. Initially she thought she was improving this weekend but then got worse again. She denies any chest pain, leg swelling or claudication. She notes palpitations during the coughing spells and for "a while" afterwards but cannot but a specific time span on this. No orthopnea or PND outside of this recent episode but as above her coughing spells and shortness of breath are worse on lying down and wake her up in the middle of the night. She was seen here in December for shortness of breath. As per the patient 17-18 years ago she had a virus which caused congestive heart failure with symptoms of shortness of breath and leg swelling. Past Medical/Surgical History Medical Problems: (1) Anemia Status: Resolved (2) Bipolar disorder Status: Chronic (3) CKD (chronic kidney disease) Status: Chronic (4) Diastolic dysfunction Permanent Comment: grade 1 diastolic dysfunction on echo 01/16/16 Status: Chronic (5) H/O viral myocarditis Permanent Comment: in remote past with improvement of LV EF to 55% on echo 2015 Status: Chronic (6) History of gout Status: Chronic (7) Hyperlipidemia Status: Chronic (8) Hypertension Status: Chronic (9) Mitral regurgitation Permanent Comment: mild on echo 12/2015 Status: Chronic Surgical Problems: (1) History of hysterectomy Status: Chronic (2) History of right hip replacement Status: Chronic (3) S/P appendectomy Status: Chronic (4) S/P ORIF (open reduction internal fixation) fracture Permanent Comment: left femur 01/16/16 Status: Chronic (5) Status post left hip replacement Status: Chronic Family History FH: CHF (congestive heart failure) FATHER MOTHER BROTHER Social History Smoking Status: Former Smoker (1pack/week for 10 years, quit 40 years ago) Drug Use: none Marital Status: Housing status: lives with family Occupational Status: retired Multi-Drug Resistant Organisms History of MDRO: No Allergies Coded Allergies: Lobster (Verified Adverse Reaction, Intermediate, GI SYMPTOMS, 01/22/17) per pt report. Home Medications Scheduled Amlodipine Besylate (Norvasc), 2.5 MG PO HS Aspirin (Aspirin Ec), 81 MG PO HS Atorvastatin (Atorvastatin Calcium), 10 MG PO DAILY Furosemide (Furosemide), 20 MG PO QAM Metoprolol Succinate (Metoprolol Succinate ER), 25 MG PO QAM Olmesartan Medoxomil (Benicar), Unknown Dose PO DAILY Venlafaxine Hcl (Effexor Extended Rel), 150 MG PO HS Review of Systems Constitutional: No fever, No chills Eyes: No worsening of vision (chronic glaucoma left eye) ENT: No hearing loss Respiratory: + cough, + shortness of breath, No sputum, No wheezing Cardiovascular: + palpitations (see HPI), No chest pain, No orthopnea, No PND, No edema, No claudication Abdomen: + pain (sore from), No nausea, No vomiting, No diarrhea, No constipation Musculoskeletal: No joint pain, No muscle pain Genitourinary - Female: No dysuria, No urinary frequency, No urinary urgency Psychiatric: No depression symptoms (under control with effexor) Endocrine: + fatigue, No excessive thirst, No excessive urination Hematologic / Lymphatic: No abnormal bleeding/bruising Integumentary: No rash, No itch Physical Exam Vital Signs Date Time Temp Pulse Resp B/P (MAP) Pulse Ox O2 Delivery O2 Flow Rate FiO2 06/02/17 16:26 93 Room Air 06/02/17 15:09 94 20 128/69 93 Room Air 06/02/17 13:51 95 06/02/17 13:30 86 22 143/101 97 Room Air 06/02/17 13:05 96 Room Air 06/02/17 11:35 36.7 68 20 135/82 96 Room Air General Appearance: WD/WN, no apparent distress Head: normocephalic, atraumatic Eyes: PERRL, + pertinent finding (clouding of left anterior chamber, patient reports chronic glaucoma) Neck: supple, no adenopathy, no carotid bruits, + JVD Respiratory/Chest: chest non-tender, lungs clear, no respiratory distress, no accessory muscle use, + crackles (bibasal fine crackles) Cardiovascular: regular rate, rhythm, no murmur, normal peripheral pulses Abdomen/GI: normal bowel sounds, non tender, soft Back: no CVA tenderness Extremities/Musculoskelatal: no calf tenderness, no pedal edema Neurologic/Psych: no motor/sensory deficits (grossly), alert, oriented x 3 Skin: normal color, warm/dry, no rash Diagnostics Laboratory Results Results Past 24 Hours Test 06/02/17 12:15 06/02/17 13:42 06/02/17 17:23 Range/Units White Blood Count 5.51 4.8-10.8 K/uL Red Blood Count 3.88 4.2-5.4 M/uL Hemoglobin 11.4 12.0-16.0 g/dL Hematocrit 35.3 37-47 % Mean Corpuscular Volume 91.0 80-100 fL Mean Corpuscular Hemoglobin 29.4 25-34 pg Mean Corpuscular Hemoglobin Concent 32.3 32-36 g/dl Platelet Count 262 130-400 K/uL Mean Platelet Volume 9.0 7.4-10.4 fL Neutrophils (%) (Auto) 64.4 % Lymphocytes (%) (Auto) 24.3 % Monocytes (%) (Auto) 8.7 % Eosinophils (%) (Auto) 2.0 % Basophils (%) (Auto) 0.4 % Neutrophils # (Auto) 3.55 1.4-6.5 K/uL Lymphocytes # (Auto) 1.34 1.2-3.4 K/uL Monocytes # (Auto) 0.48 0.11-0.59 K/uL Eosinophils # (Auto) 0.11 0-0.5 K/uL Basophils # (Auto) 0.02 0-0.2 K/uL RDW Standard Deviation 46.0 36.4-46.3 fL RDW Coefficient of Variation 13.9 11.5-14.5 % Immature Granulocyte % (Auto) 0.2 % Immature Granulocyte # (Auto) 0.01 0.00-0.02 K/uL Sodium Level 141 136-145 mmol/L Potassium Level 4.0 3.5-5.1 mmol/L Chloride Level 111 98-107 mmol/L Carbon Dioxide Level 22 21-32 mmol/L Anion Gap 8.0 3-11 mmol/L Blood Urea Nitrogen 30 7-18 mg/dl Creatinine 1.60 0.60-1.20 mg/dl Est Creatinine Clear Calc Drug Dose 25.8 ml/min Estimated GFR () 34.7 Estimated GFR (Non- 29.9 BUN/Creatinine Ratio 18.9 10-20 Random Glucose 92 70-99 mg/dl Calcium Level 8.5 8.5-10.1 mg/dl Total Bilirubin 0.4 0.2-1 mg/dl Aspartate Amino Transf (AST/SGOT) 39 15-37 U/L Alanine Aminotransferase (ALT/SGPT) 67 12-78 U/L Alkaline Phosphatase 124 45-117 U/L Total Protein 7.0 6.4-8.2 gm/dl Albumin 3.3 3.4-5.0 gm/dl Globulin 3.7 2.5-4.0 gm/dl Albumin/Globulin Ratio 0.9 0.9-2 Bedside Troponin I 0.060 0-0.045 ng/ml OO-Xkv-[id number]-Type Natriuretic Peptide 4159 0-1800 pg/ml Diagnostic Radiology CHEST ONE VIEW PORTABLE CLINICAL HISTORY: cough/sob COMPARISON STUDY: 01/22/2017 FINDINGS: The heart is mildly enlarged. There is mild interstitial thickening/edema. There is no lobar consolidation. No significant pleural effusions are visualized.[ IMPRESSION: Mild cardiomegaly with mild interstitial thickening/edema. No evidence of lobar consolidation. Electronically signed by: Steve Samuels M.D. 06/02/2017 12:32 PM Dictated Date/Time: 06/02/2017 12:30 PM EKG Sinus rhythm with Premature supraventricular complexes Possible LVH Nonspecific T wave abnormality No change from prior EKG (no fusion complexes, no significant changes) Impression Assessment and Plan 82 year old with cough and shortness of breath Pulmonary edema: Suspected acute on chronic congestive heart failure - previous viral myocarditis as per history. Sudden deterioration 1.5 weeks ago suggestive of a heart attack at that time. Previous stress test in Dec this year showed LVEF 40-45% and wall motion abnormalities suggestive of RCA or circumflex disease. - Give additional 20mg lasix IV now. - daily weights, I&Os - Add BB (metoprolol), continue ARB, defer novel medications (eg. Entresto) if indicated to cardiology - Echocardiogram in morning to assess for change since December Cough - suspect due to above pulmonary edema given acute onset with shortness of breath however the possibility of drug induced (olmesartan) or viral bronchitis is not excluded. Suspected coronary artery disease - as per previous stress echo and current symptoms - consult cardiology for medical vs. interventional management. She is currently on a lot of medical therapy however as she is not on a BB/hydralazine/ ARNI there is some optimization for this. - NPO except meds after midnight - Continue ASA, statin and ARB. Add BB as above. Hyperlipidemia - Continue atorvastatin 10mg - fasting lipids in morning to assess need to increase this HTN - stop amlodipine as starting metoprolol - Continue ARB CKD - appears to be at baseline therefore continue ARB - daily BMP VTE Prophylaxis - heparin 5000 units Q8H Code - Full as discussed with the patient Disposition - admit to telemetry Level of Care Telemetry Advanced Directives Existing Living Will: No Existing Power of Supervisor Concrete Stone Finishing: No Resuscitation Status FULL RESUSCITATION Resident Tracking Resident Involvement: Resident Care Provided Care Provided: Adult ED Assessment and Plan Attending Addendum: I physically seen and examined this patient, have supervised the medical residents activities, and agree with the H&P as noted above with the following exceptions: NONE The patient is awake, well-developed and adequately nourished, alert and oriented 3, normocephalic and atraumatic, lying in bed and in no acute distress. HEENT--PERRL, EOMI, mucous membranes and oropharynx dry. Neck--supple, no JVD or bruits, thyroid normal, trachea midline, no adenopathy. Heart--normal S1 and S2, no extra beats, no murmurs, rubs or gallops. Lungs--crackles at the bases bilaterally no respiratory distress, no accessory muscle use. Abdomen--normal bowel sounds and soft, nontender and nondistended, no hernias or masses, no organomegaly. Extremities--no cyanosis, clubbing. 1+ bilateral pretibial pitting edema. There are good distal pulses b/l. Dermatologic--normal skin turgor, normal color, warm and dry, no abnormal lymph nodes, no rash. Neurologic--cranial nerves II through XII grossly intact. Rheumatologic--normal range of motion. Psychiatric--normal affect. Assessment and Plan: 1. CAD/hypertension/acute on chronic systolic CHF/previous recent viral myocarditis--patient be admitted to a monitored bed. We'll follow serial cardiac enzymes, cardiac rhythm monitoring and a 2-D echocardiogram with Dopplers. Place on IV Lasix, and metoprolol tartrate, and continue ARB. Hold amlodipine. Consult cardiology.
[2017-06-02] MEDS ORDERED: NITROGLYCERIN 0.4 MG SL PER TAB CHARGE SL PRN (18:15)
[2017-06-02] MEDS ORDERED: ACETAMINOPHEN 325 MG TAB PO PRN (18:15)
[2017-06-02] MEDS ORDERED: ONDANSETRON INJ 2 MG/ML 2 ML VIAL IV PRN (18:15)
[2017-06-02] MEDS ORDERED: METOPROLOL TARTRATE 25 MG TAB PO ONE (18:16)
[2017-06-02] MEDS ORDERED: FUROSEMIDE INJ 20 MG in SYRINGE 0 ML IV STA (20:29)
[2017-06-02 20:53] LABS: INR 1.1 (0.9-1.1); PROTHROMBIN TIME (PATIENT) 12.3 SECONDS (9.0-12.0)
[2017-06-02] MEDS: ASPIRIN 81 MG ECTAB PO SCH (21:06)
[2017-06-02] MEDS: VENLAFAXINE HCL XR 150 MG CAPXR PO SCH (21:07)
[2017-06-02] MEDS: HEPARIN SOD 5000 UNIT/0.5 ML CARP SQ SCH (22:29)
[2017-06-02 23:46] VITALS: BP 135/84; PULSE 85; TEMP 36.6; O2SAT 90
[2017-06-03 03:58] VITALS: BP 146/93; PULSE 82; TEMP 37.1; O2SAT 99
[2017-06-03] MEDS: HEPARIN SOD 5000 UNIT/0.5 ML CARP SQ SCH ×3 (06:19→21:23)
[2017-06-03 06:53] LABS: HEMATOCRIT 34.7 % (37-47); MEAN CELL VOLUME 90.1 fL (80-100); MEAN CORPUSCULAR HEMOGLOBIN 30.1 pg (25-34); MEAN CORPUSCULAR HGB CONC 33.4 g/dl (32-36); MEAN PLATELET VOLUME 8.8 fL (7.4-10.4); PLATELET COUNT 262 K/uL (130-400); RED BLOOD COUNT 3.85 M/uL (4.2-5.4); WHITE BLOOD COUNT 7.19 K/uL (4.8-10.8)
[2017-06-03 07:24] LABS: BUN/CREATININE RATIO 20.5 (10-20); CALCIUM 8.7 mg/dl (8.5-10.1); CREATININE 1.5 mg/dl (0.60-1.20)
[2017-06-03 07:33] LABS: CHOLESTEROL/HDL RATIO 2.7
[2017-06-03 07:58] VITALS: BP 147/90; PULSE 87; TEMP 36.7; O2SAT 94
[2017-06-03] MEDS: ATORVASTATIN 10 MG TAB PO SCH (08:23)
[2017-06-03] MEDS: OLMESARTAN MEDOXOMIL 20 MG TAB PO SCH (08:23)
[2017-06-03] MEDS: METOPROLOL TARTRATE 25 MG TAB PO SCH ×2 (08:24→21:19)
--- NOTE | 2017-06-03 09:45 | ECHOCARDIOGRAM REPORT ---
*NOTICE TO RECEIVING [employer] This information is strictly Confidential and protected under [place] law. [place] law prohibits you from making any further disclosure of this information unless further disclosure is expressly permitted by the written consent of the person to whom it pertains or is authorized by law. A general authorization for the release of medical or other information is not sufficient for this purpose. Hospital accepts no responsibility if the information is made available to any other person, INCLUDING THE PATIENT. Interpretation Summary * Name: MUSA PARK Study Date: 06/03/2017 07:11 AM BP: 146/93 mmHg * Patient Location: [facility]\S\N280\S\2 HR: 88 * : 1935 (M/d/yyyy) Gender: Female Height: 66 in * Age: 82 yrs Ethnicity: AA Weight: 139 lb * Ordering Physician: Eugene Mike * Referring Physician: Self, Referred * Performed By: Rosario Plunkett, [facility] * * Reason For Study: CHF * BSA: 1.7 m2 * -- Conclusions -- * There is borderline concentric left ventricular hypertrophy. * Left ventricular systolic function is moderately reduced. * Grade I diastolic dysfunction, (abnormal relaxation pattern). * There is moderate to severe mitral regurgitation. * There is moderate tricuspid regurgitation. * Right ventricular systolic pressure is elevated at 50-60mmHg. * Compared to an echocardiogram from 12/2016, the LV systolic function is worse. Procedure Details * A complete two-dimensional transthoracic echocardiogram was performed (2D, M-mode, Doppler and color flow Doppler). Left Ventricle * The left ventricle is grossly normal size. * There is borderline concentric left ventricular hypertrophy. * Left ventricular systolic function is moderately reduced. * Ejection Fraction = 20-25%. * Grade I diastolic dysfunction, (abnormal relaxation pattern). * There is moderate global hypokinesis of the left ventricle. Right Ventricle * The right ventricle is grossly normal size. * The right ventricular systolic function is normal. Atria * The left atrial size is normal. * Right atrial size is normal. Mitral Valve * The mitral valve anatomy is normal. * There is moderate to severe mitral regurgitation. Tricuspid Valve * The tricuspid valve is not well visualized, but is grossly normal. * There is moderate tricuspid regurgitation. * Right ventricular systolic pressure is elevated at 50-60mmHg. Aortic Valve * Aortic valve sclerosis mild, without significant aortic valvular stenosis. * No hemodynamically significant valvular aortic stenosis. * There is no significant aortic regurgitation. Great Vessels * The aortic root is normal size. Pericardium/Pleural * There is no pericardial effusion. MMode 2D Measurements and Calculations IVSd 1.3 cm IVSs 1.3 cm LVIDd 5.0 cm LVIDs 4.5 cm LVPWd 1.1 cm LVPWs 1.4 cm IVS/LVPW 1.2 FS 11.0 % EDV(Teich) 118.6 ml ESV(Teich) 90.2 ml EF(Teich) 23.9 % EDV(cubed) 125.4 ml ESV(cubed) 88.3 ml EF(cubed) 29.6 % % IVS thick 1.8 % % LVPW thick 22.2 % LV mass(C)d 242.3 grams LV mass(C)dI 141.4 grams/m\S\2 LV mass(C)s 236.2 grams LV mass(C)sI 137.8 grams/m\S\2 SV(Teich) 28.4 ml SI(Teich) 16.5 ml/m\S\2 SV(cubed) 37.1 ml SI(cubed) 21.7 ml/m\S\2 Ao root diam 2.7 cm Ao root area 5.8 cm\S\2 ACS 1.6 cm LA dimension 3.0 cm LA/Ao 1.1 LVOT diam 2.0 cm LVOT area 3.3 cm\S\2 LVAd ap4 41.7 cm\S\2 LVLd ap4 8.9 cm EDV(MOD-sp4) 159.4 ml EDV(sp4-el) 165.7 ml LVAs ap4 34.9 cm\S\2 LVLs ap4 8.1 cm ESV(MOD-sp4) 121.3 ml ESV(sp4-el) 127.6 ml EF(MOD-sp4) 23.9 % EF(sp4-el) 23.0 % LVAd ap2 42.7 cm\S\2 LVLd ap2 9.2 cm EDV(MOD-sp2) 157.5 ml EDV(sp2-el) 167.5 ml LVAs ap2 34.5 cm\S\2 LVLs ap2 8.9 cm ESV(MOD-sp2) 111.9 ml ESV(sp2-el) 113.6 ml EF(MOD-sp2) 28.9 % EF(sp2-el) 32.2 % LVLd %diff 3.3 % EDV(MOD-bp) 162.8 ml LVLs %diff 8.7 % ESV(MOD-bp) 122.6 ml EF(MOD-bp) 24.7 % SV(MOD-sp4) 38.1 ml SI(MOD-sp4) 22.3 ml/m\S\2 SV(MOD-sp2) 45.5 ml SI(MOD-sp2) 26.6 ml/m\S\2 SV(MOD-bp) 40.2 ml SI(MOD-bp) 23.5 ml/m\S\2 SV(sp4-el) 38.2 ml SI(sp4-el) 22.3 ml/m\S\2 SV(sp2-el) 53.9 ml SI(sp2-el) 31.4 ml/m\S\2 Doppler Measurements and Calculations MV E max lena 162.8 cm/sec MV A max lena 58.8 cm/sec MV E/A 2.8 MV P1/2t max lena 167.1 cm/sec MV P1/2t 71.0 msec MVA(P1/2t) 3.1 cm\S\2 MV dec slope 689.4 cm/sec\S\2 MV dec time 0.12 sec Ao V2 max 115.6 cm/sec Ao max PG 5.3 mmHg Ao max PG (full) 4.1 mmHg JOANNE(V,A) 1.6 cm\S\2 JOANNE(V,D) 1.6 cm\S\2 AI max lena 391.6 cm/sec AI max PG 61.4 mmHg AI dec slope 326.0 cm/sec\S\2 AI P1/2t 351.9 msec LV V1 max PG 1.2 mmHg LV V1 max 55.5 cm/sec MR max lena 577.0 cm/sec MR max PG 133.6 mmHg PA V2 max 56.5 cm/sec PA max PG 1.3 mmHg TR max lena 362.2 cm/sec
--- NOTE | 2017-06-03 10:42 | Cardiology Consultation ---
Cardiology Consultation Date of Consultation: Jun 03, 2017. Attending Physician: Oren Salas Pt evaluation today including: conversation w/ patient, physical exam, chart review, lab review, review of studies, review of inpatient medication list, conversation w/ attending History of Present Illness Ms. 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 She denies any fever, dizziness, orthopnea, chest pain, leg swelling or palpitations. Her symptoms are worse upon exertion and she finds that she cannot be as active as she was previously. At baseline, she does not generally have any trouble breathing, and is able to complete her 20 minute walks and ADLs without difficulty. She has been compliant with her medications and cannot think of an inciting trigger for this episode. Her ECHO done in December 2016 showed an EF of 40%. Past Medical/Surgical History (1) Hypertension (2) CKD (chronic kidney disease) (3) H/O viral myocarditis (4) Mitral regurgitation (5) CHF (congestive heart failure) Family History FH: CHF (congestive heart failure) FATHER MOTHER BROTHER Social History Smoking Status: Former Smoker (1pack/week for 10 years, quit 40 years ago) History of Alcohol Use: Yes (OCC WINE ) Review of Systems Constitutional: + weakness, + fatigue, No fever, No chills Respiratory: + cough, + dyspnea on exertion, No wheezing Cardiac: No chest pain, No orthopnea, No PND, No edema, No claudication, No palpitations Abdomen: No nausea, No vomiting, No diarrhea All Other Systems: Reviewed and Negative Allergies Coded Allergies: Maureenster (Verified Adverse Reaction, Intermediate, GI SYMPTOMS, 01/22/17) per pt report. Medications Current Inpatient Medications Medications (Trade) Dose Ordered Sig/Chinedu Route Start Time Stop Time Status Last Admin Dose Admin Heparin Sodium (Porcine) (Heparin Sq 5000 Unit/0.5ml) 5,000 unit Q8 SQ 06/02/17 22:00 07/02/17 21:59 06/03/17 06:19 5,000 UNIT Acetaminophen (Tylenol Tab) 650 mg Q4H PRN PO 06/02/17 18:15 07/02/17 18:14 Ondansetron HCl (Zofran Inj) 4 mg Q6H PRN IV 06/02/17 18:15 07/02/17 18:14 Nitroglycerin (Nitrostat Tab) 0.4 mg UD PRN SL 06/02/17 18:15 07/02/17 18:14 Aspirin (Ecotrin Tab) 81 mg HS PO 06/02/17 21:00 07/02/17 20:59 06/02/17 21:06 81 MG Atorvastatin Calcium (Lipitor Tab) 10 mg DAILY PO 06/03/17 09:00 07/03/17 08:59 06/03/17 08:23 10 MG Venlafaxine HCl (effeXOR EXTENDED REL CAP) 150 mg HS PO 06/02/17 21:00 07/02/17 20:59 06/02/17 21:07 150 MG Olmesartan (Benicar Tab) 20 mg QAM PO 06/03/17 09:00 07/03/17 08:59 06/03/17 08:23 20 MG Metoprolol Tartrate (Lopressor Tab) 12.5 mg BID PO 06/03/17 09:00 07/03/17 08:59 06/03/17 08:24 12.5 MG Physical Exam Vital Signs Past 12 Hours Date Time Temp Pulse Resp B/P (MAP) Pulse Ox O2 Delivery O2 Flow Rate FiO2 06/03/17 08:00 Room Air 06/03/17 07:58 36.7 87 16 147/90 (109) 94 Room Air 06/03/17 04:00 Room Air 06/03/17 03:58 37.1 82 18 146/93 (110) 99 Nasal Cannula 2.0 06/03/17 00:00 Room Air 06/02/17 23:46 36.6 85 16 135/84 (101) 90 Room Air Constitutional: General Apperance: heathly-appearing Level of Distress: NAD Head: normocephalic, atraumatic Neck: supple, pertinent finding (JVD) Lungs: Auscultation: CTA except as noted, pertinent finding (bibasal fine crackles) Cardiovascular: Apical Impulse: not displaced Heart Auscultation: RRR, normal S1, normal S2, no murmurs, no rubs, no gallops Peripheral Pulses: Radial Pulse: normal on the right Data Laboratory Results: Last 24 Hours Test 06/02/17 12:15 7/5/17 13:42 06/02/17 19:08 06/03/17 06:41 White Blood Count 5.51 K/uL 7.19 K/uL Red Blood Count 3.88 M/uL 3.85 M/uL Hemoglobin 11.4 g/dL 11.6 g/dL Hematocrit 35.3 % 34.7 % Mean Corpuscular Volume 91.0 fL 90.1 fL Mean Corpuscular Hemoglobin 29.4 pg 30.1 pg Mean Corpuscular Hemoglobin Concent 32.3 g/dl 33.4 g/dl Platelet Count 262 K/uL 262 K/uL Mean Platelet Volume 9.0 fL 8.8 fL Neutrophils (%) (Auto) 64.4 % Lymphocytes (%) (Auto) 24.3 % Monocytes (%) (Auto) 8.7 % Eosinophils (%) (Auto) 2.0 % Basophils (%) (Auto) 0.4 % Neutrophils # (Auto) 3.55 K/uL Lymphocytes # (Auto) 1.34 K/uL Monocytes # (Auto) 0.48 K/uL Eosinophils # (Auto) 0.11 K/uL Basophils # (Auto) 0.02 K/uL RDW Standard Deviation 46.0 fL 45.9 fL RDW Coefficient of Variation 13.9 % 13.9 % Immature Granulocyte % (Auto) 0.2 % Immature Granulocyte # (Auto) 0.01 K/uL Prothrombin Time 12.3 SECONDS Prothromb Time International Ratio 1.1 Sodium Level 141 mmol/L 141 mmol/L Potassium Level 4.0 mmol/L 4.0 mmol/L Chloride Level 111 mmol/L 108 mmol/L Carbon Dioxide Level 22 mmol/L 24 mmol/L Anion Gap 8.0 mmol/L 9.0 mmol/L Blood Urea Nitrogen 30 mg/dl 31 mg/dl Creatinine 1.60 mg/dl 1.50 mg/dl Est Creatinine Clear Calc Drug Dose 25.8 ml/min 27.5 ml/min Estimated GFR () 34.7 37.5 Estimated GFR (Non- 29.9 32.3 BUN/Creatinine Ratio 18.9 20.5 Random Glucose 92 mg/dl 129 mg/dl Calcium Level 8.5 mg/dl 8.7 mg/dl Magnesium Level 2.0 mg/dl Total Bilirubin 0.4 mg/dl Aspartate Amino Transf (AST/SGOT) 39 U/L Alanine Aminotransferase (ALT/SGPT) 67 U/L Alkaline Phosphatase 124 U/L Total Protein 7.0 gm/dl Albumin 3.3 gm/dl Globulin 3.7 gm/dl Albumin/Globulin Ratio 0.9 Bedside Troponin I 0.060 ng/ml BR-Otu-F-Type Natriuretic Peptide 4159 pg/ml Troponin I 0.089 ng/ml 0.077 ng/ml Triglycerides Level 109 mg/dl Cholesterol Level 129 mg/dl HDL Cholesterol 47 mg/dl LDL Cholesterol, Calculated 60 mg/dl VLDL Cholesterol, Calculated 22 mg/dl Cholesterol/HDL Ratio 2.7 Imaging: EKG: Telemetry reviewed: Assessment & Plan Pulmonary Edema/Decompensated Heart Failure: patient is improving with Lasix, reports a decrease in her cough and shortness of breath. Continue beta yessy, ARB, ASA, statin and Lasix. Consider discharging patient with a beta yessy and Lasix prescription. ECHO done today shows an EF of 20-25%, a significant decrease from her EF in Dec 2016 (40%). She also has moderate to severe mitral regurgitation and moderate tricuspid regurgitation. Overall, compared to her echo in Dec 2016, her left ventricular systolic function is worse. CAD: It is likely the precipitating event for her decompensated heart failure was an ischemic event, as her previous stress test in Dec 2016 showed wall motion abnormalities suggestive of RCA or circumflex disease. As well, her troponin is minimally elevated, which could be trending down from last week. We are recommending an angiogram to examine the extent of CAD, and possibly relieving stenosis with a balloon/stent. This procedure, as well as its benefits and risks, was explained to Ms. Quesada, and Dr. Salas called her daughter to inform her of the news. CKD: Ms. Quesada has CKD, and therefore a lower level of contrast will need to be used during her angiogram. HTN: Overall looks well-controlled. Pulmonary hypertension: Based on her echocardiogram. Likely related to her degree of LV systolic failure and pulmonary vascular congestion. Valvular Heart Disease: Moderate to severe MR and Moderate TR. Not a good candidate for valve surgery in shantal setting of a cardiomyopathy. May be a candidate of she requires surgical revascularization. May predispose her to recurrent episodes of decompensated CHF. Attending note: I saw and examined Mrs. Nisha Quesada with the resident listed above. I agree with the documentation as written. Briefly, this is state has a history of nonischemic cardiomyopathy. She presented with what appears to be acute decompensated congestive heart failure. She has responded well to diuresis and her symptoms are nearly resolved. However, her echocardiogram demonstrates worsening LV systolic function. This point it seems reasonable to recommend coronary angiography for further evaluation. We will need to limit contrast given her degree of renal dysfunction. She will receive some gentle hydration overnight. I described the risks benefits and alternatives of the procedure to the patient and she is willing to proceed. Resident Tracking Resident Involvement: Resident Care Provided Care Provided: Adult [facility]
[2017-06-03 11:57] VITALS: BP 130/83; PULSE 76; TEMP 36.7; O2SAT 95
[2017-06-03 15:40] VITALS: BP 123/75; PULSE 75; TEMP 36.8; O2SAT 95
--- NOTE | 2017-06-03 17:35 | Hospitalist Progress Note ---
Hospitalist Progress Note Date of Service Jun 03, 2017. (Tyson Carrera,P.A.) Subjective Pt evaluation today including: conversation w/ patient, physical exam, chart review, lab review, review of studies, review of inpatient medication list Mrs. Quesada is an 82 year old black female with a history of Hypertension, Dyslipidemia, CKD, Anemia, Depression, Osteoarthritis s/p b/l MARBIN's, and a Viral Myocarditis diagnosed in the late after she presented with acute decompensated Systolic CHF. Her LVEF eventually got back up to 45% and she did reasonably well for several years thereafter. Unfortunately, last Wednesday the patient awakened with a persistent cough, chest congestion, SOB, progressive ELLIOTT , and progressive generalized weakness. Patient sought medical attention and was diagnosed with acute Decompensated CHF as confirmed by physical examination, CXR, and elevated Pro BNP. Patient treated with IV diuretics and has had a good diuretic response. Her breathing is approaching baseline, cough has improved dramatically, and she can lie flat without orthopnea, pnd, or worsening cough. She has an elevated Troponin I level but she has not had any classic anginal type symptoms. She has never had a cardiac catheterization but prior Stress Test in December 2016 suggested RCA or LCx territory ischemia. Additionally, her Echocardiogram performed on 06/03/2017 shows worsened LV systolic function, LVEF 20% to 25% with global hypokinesis, Borderline Concentric LVH with grade I diastolic dysfunction, Moderate to Severe MR, Moderate TR, and Elevated RVSP of 50 to 60 mmHg. Further ischemic work up is indicated. (Tyson Carrera,P.A.) Medications Current Inpatient Medications Medications (Trade) Dose Ordered Sig/Chinedu Route Start Time Stop Time Status Last Admin Dose Admin Heparin Sodium (Porcine) (Heparin Sq 5000 Unit/0.5ml) 5,000 unit Q8 SQ 06/02/17 22:00 07/02/17 21:59 06/03/17 13:39 5,000 UNIT Acetaminophen (Tylenol Tab) 650 mg Q4H PRN PO 06/02/17 18:15 07/02/17 18:14 Ondansetron HCl (Zofran Inj) 4 mg Q6H PRN IV 06/02/17 18:15 07/02/17 18:14 Nitroglycerin (Nitrostat Tab) 0.4 mg UD PRN SL 06/02/17 18:15 07/02/17 18:14 Aspirin (Ecotrin Tab) 81 mg HS PO 06/02/17 21:00 07/02/17 20:59 06/02/17 21:06 81 MG Atorvastatin Calcium (Lipitor Tab) 10 mg DAILY PO 06/03/17 09:00 07/03/17 08:59 06/03/17 08:23 10 MG Venlafaxine HCl (effeXOR EXTENDED REL CAP) 150 mg HS PO 06/02/17 21:00 07/02/17 20:59 06/02/17 21:07 150 MG Olmesartan (Benicar Tab) 20 mg QAM PO 06/03/17 09:00 07/03/17 08:59 06/03/17 08:23 20 MG Metoprolol Tartrate (Lopressor Tab) 12.5 mg BID PO 06/03/17 09:00 07/03/17 08:59 06/03/17 08:24 12.5 MG (Tyson Carrera.,P.A.) Objective Vital Signs Date Time Temp Pulse Resp B/P (MAP) Pulse Ox O2 Delivery O2 Flow Rate FiO2 06/03/17 15:40 36.8 75 16 123/75 (91) 95 Room Air 06/03/17 15:38 Room Air 06/03/17 11:57 36.7 76 16 130/83 (99) 95 Room Air 06/03/17 11:51 Room Air 06/03/17 08:00 Room Air 06/03/17 07:58 36.7 87 16 147/90 (109) 94 Room Air 06/03/17 04:00 Room Air 06/03/17 03:58 37.1 82 18 146/93 (110) 99 Nasal Cannula 2.0 06/03/17 00:00 Room Air 06/02/17 23:46 36.6 85 16 135/84 (101) 90 Room Air 06/02/17 19:14 90 16 147/94 98 Room Air 06/02/17 17:00 88 17 147/98 98 Room Air (Tyson Carrera.,P.A.) Physical Exam Notes: General: Patient in no acute distress. HEENT: Head is atraumatic, normocephalic. EOM's intact. Sclerae anicteric. Facies symmetric. No perioral cyanosis. Neck: No thyromegaly, adenopathy, or obvious JVD. JVP is just above the clavicle sitting upright, but wide variation with systole and respiration. Chest / Lungs: Diminished breath sounds in left base, otherwise clear. No wheezes or rales. CVS: S1 and S2 are regular with a grade 2/6 apical holosystolic murmur radiates to axilla. No diastolic murmurs noted. PMI is diffuse and rolling, laterally displaced. No thrills. No abdominal aortic or renal bruits. Abdominal Exam: Bowel sounds present. No masses organomegaly, or tenderness. No abdominal aortic or renal bruits. Extremities: No clubbing, cyanosis, or edema. Normal radial, femoral, and posterior tibial pulsations. Kee's test positive for radial and ulnar reflow. Neurologic Exam: Patient is awake, alert, and interactive. Pleasant and cooperative. Speech is clear. Normal movement in all four extremities. Echocardiogram 06/03/2017: As described above. LVEF 20% to 25% with global hypokinesis. Moderate to Severe MR, Moderate TR, elevated RVSP of 50 to 60 mmHg. (Tyson Carrera.,P.A.) Laboratory Results Last 24 Hours Test 06/02/17 19:08 06/03/17 06:41 Troponin I 0.089 ng/ml 0.077 ng/ml White Blood Count 7.19 K/uL Red Blood Count 3.85 M/uL Hemoglobin 11.6 g/dL Hematocrit 34.7 % Mean Corpuscular Volume 90.1 fL Mean Corpuscular Hemoglobin 30.1 pg Mean Corpuscular Hemoglobin Concent 33.4 g/dl RDW Standard Deviation 45.9 fL RDW Coefficient of Variation 13.9 % Platelet Count 262 K/uL Mean Platelet Volume 8.8 fL Sodium Level 141 mmol/L Potassium Level 4.0 mmol/L Chloride Level 108 mmol/L Carbon Dioxide Level 24 mmol/L Anion Gap 9.0 mmol/L Blood Urea Nitrogen 31 mg/dl Creatinine 1.50 mg/dl Est Creatinine Clear Calc Drug Dose 27.5 ml/min Estimated GFR () 37.5 Estimated GFR (Non- 32.3 BUN/Creatinine Ratio 20.5 Random Glucose 129 mg/dl Calcium Level 8.7 mg/dl Triglycerides Level 109 mg/dl Cholesterol Level 129 mg/dl HDL Cholesterol 47 mg/dl LDL Cholesterol, Calculated 60 mg/dl VLDL Cholesterol, Calculated 22 mg/dl Cholesterol/HDL Ratio 2.7 (Tyson Carrera,P.A.) Assessment and Plan 1. Acute Decompensated Systolic CHF: -- Symptoms have improved dramatically. -- Monitor daily I&O's, body weights. -- Continue Lopressor 12.5 mg bid. -- Continue Olmesartan 20 mg daily. -- Continue diuretics as needed. 2. Cardiomyopathy with elevated Troponin I and worsened LV systolic function: -- Recommend further ischemic work up. -- Patient agrees to proceed with Left Heart Catheterization / Coronary Angiography tomorrow. -- NPO after midnight except meds with sips of H2O. -- Continue Beta Hussain, ARB, Statin, and Aspirin. 3. Hypertension: -- Controlled, continue current regimen. 4. CKD: -- Serum Creatinine has improved since admission. Continued [facility] stay due to: multiple IV medications needed, other (Further cardiac work up required.) Discharge planning: home (Tyson Carrera.,P.A.) Reviewed: Pt Seen/Exam by Me (Ninfa Valadez MD) History Physician Cooker Loader Supervision Note: I interviewed and examined the patient. Discussed with MIN Carrera and agree with findings and plan as documented in the note. Any exceptions or clarifications are listed here: Pt denies CP, is feeling improved since diuresis. Discussed ECHO findings and plan for cath tomorrow VSS, Tele reviewed Thin, NAD, AAOx3 RRR, 2/6 soft holosystolic murmur at apex, +9 cm JVD Mild crackles at bases bilat Abd +BS soft NT ND 82 yo female with acute on chronic systolic CHF with worsening of LV function over last 4 months, with abnormal stress test 12/2016. -plan for cath tomorrow -continue diuresis after cath but will give pre-cath hydration given CKD stgae III -continue beta hussain, ARB, statin but will need high intensity if CAD on cath , continue ASA Documented By: Ninfa Valadez (Ninfa Valadez MD)
[2017-06-03] MEDS ORDERED: FUROSEMIDE INJ 40 MG in SYRINGE 0 ML IV ONE (18:00)
[2017-06-03 19:26] VITALS: BP 126/72; PULSE 84; TEMP 36.9; O2SAT 92
[2017-06-03] MEDS: ASPIRIN 81 MG ECTAB PO SCH (21:19)
[2017-06-03] MEDS: VENLAFAXINE HCL XR 150 MG CAPXR PO SCH (21:19)
[2017-06-03] MEDS: SODIUM CHLORIDE 0.9% 1000ML 1,000 ML IV SCH (21:20)
[2017-06-03 23:07] VITALS: BP 131/83; PULSE 87; TEMP 36.8; O2SAT 96
[2017-06-04] VITALS (17 sets, daily range): BP systolic 117–137; BP diastolic 65–82; PULSE 73–93; TEMP 36.6–36.8; O2SAT 86–98
[2017-06-04] MEDS: HEPARIN SOD 5000 UNIT/0.5 ML CARP SQ SCH ×3 (06:04→21:40)
[2017-06-04 07:06] LABS: BASO % 0.2 %; BASO ABS # 0.01 K/uL (0-0.2); COMPLETE YES; EOS % 2.2 %; HEMATOCRIT 36.4 % (37-47); IG% 0.2 %; LYMPH % 25.2 %; LYMPH ABS # 1.35 K/uL (1.2-3.4); MEAN CELL VOLUME 90.8 fL (80-100); MEAN CORPUSCULAR HEMOGLOBIN 27.9 pg (25-34); MEAN CORPUSCULAR HGB CONC 30.8 g/dl (32-36); MEAN PLATELET VOLUME 8.8 fL (7.4-10.4); MONO % 10.8 %; NEUT % 61.4 %; PLATELET COUNT 284 K/uL (130-400); RED BLOOD COUNT 4.01 M/uL (4.2-5.4); WHITE BLOOD COUNT 5.35 K/uL (4.8-10.8)
[2017-06-04 07:32] LABS: BUN/CREATININE RATIO 23.2 (10-20); CALCIUM 8.1 mg/dl (8.5-10.1); CREATININE 1.6 mg/dl (0.60-1.20)
--- NOTE | 2017-06-04 07:55 | Procedure Note ---
Pre-Mod Sedation Assessment General Date of Moderate Sedation: Jun 04, 2017. Vital Signs: Vital Signs Past 12 Hours Date Time Temp Pulse Resp B/P (MAP) Pulse Ox O2 Delivery O2 Flow Rate FiO2 06/04/17 07:06 36.7 86 16 124/82 (96) 93 Room Air 06/04/17 04:07 36.7 82 18 130/80 (97) 96 Room Air 06/04/17 04:00 Room Air 06/04/17 00:00 Room Air 06/03/17 23:07 36.8 87 18 131/83 (99) 96 Room Air 06/03/17 20:00 Room Air Review Cardiovascular: regular rate, rhythm Lungs: lungs clear, + crackles Airway Class: II Pre-Sedation Airway Assessment Oral Cavity: Dentures Able to Visualize Vocal Cords: No Short Thick Neck: No Hx of Sleep Apnea: No Smoking Status: Former Smoker (1pack/week for 10 years, quit 40 years ago) Mallampati Classification: Class II Procedure Planning Contraindications-for Mod Sed: None Yes Notes The planned sedation has been discussed with the patient and consent obtained. I have identified the patient, determined the appropriateness of sedation and have assessed the patient immediately prior to the procedure. All medicine(s) and interventions are by my order.
[2017-06-04] MEDS ORDERED: NiCARDipine HCL INJ 2.5 MG/ML 10 ML AMP ONE (08:01)
[2017-06-04] MEDS ORDERED: NITROGLYCERIN/D5W 100MCG/ML 20ML SYR ONE (08:02)
[2017-06-04] MEDS ORDERED: HEPARIN SOD (PORCINE) 1000 UNIT/ML 10 ML VIAL ONE (08:02)
[2017-06-04] MEDS ORDERED: FENTANYL CITRATE INJ 50 MCG/1 ML 2 ML VIAL ONE (08:03)
[2017-06-04] MEDS ORDERED: MIDAZOLAM HCL 1 MG/ML 2ML VIAL ONE ×2 (08:03→08:38)
[2017-06-04] MEDS ORDERED: SODIUM CHLORIDE 0.9% 1000ML 1,000 ML IV SCH (08:43)
[2017-06-04] MEDS ORDERED: ACETAMINOPHEN 325 MG TAB PO PRN (08:45)
[2017-06-04] MEDS ORDERED: NITROGLYCERIN 0.4 MG SL PER TAB CHARGE SL PRN (08:45)
[2017-06-04] MEDS: METOPROLOL TARTRATE 25 MG TAB PO SCH ×2 (09:23→21:43)
[2017-06-04] MEDS: OLMESARTAN MEDOXOMIL 20 MG TAB PO SCH (09:24)
[2017-06-04] MEDS: ATORVASTATIN 10 MG TAB PO SCH (09:24)
[2017-06-04] MEDS: SODIUM CHLORIDE 0.9% 1000ML 1,000 ML IV SCH (09:25)
--- NOTE | 2017-06-04 10:40 | Cardiac Catheterization ---
Procedure Note Procedure Date Jun 04, 2017. Pre-Procedure Diagnosis Positive Stress Test, Cardiomyopathy AUC Score 8 Post-Procedure Diagnosis Normal Coronary Arteries Procedure(s) Performed Coronary Angiography, Left Heart Cath Machinist Apprentice Gold Charmer(s) None Estimated Blood Loss None Medication(s) Aspirin Fentanyl, Versed, heparin Summary of Findings 1. Left main coronary artery was normal in size and caliber without evidence of stenosis 2. Left anterior descending artery was a large transapical vessel with evidence of hypertensive angiopathy. He produce several diagonal branches but was free of obstructive coronary disease 3. Left circumflex: Left circumflex artery was a non dominant vessel there were 2 large OM branches with evidence of hypertensive arteriopathy. However there were no obstructive lesions 4. Right coronary artery: This arose from the left coronary cusp in close proximity to the left main. This was a dominant vessel with a 30 percent stenosis in its midportion but no other evidence of obstructive coronary disease Hemodynamics Rest Ao: 127/76 Final Ao: 129/81 LV: 135/13 with an end-diastolic pressure of 22 Recommendations Medical therapy and/or Counseling Specimens None Radiation Exposure (mGy) Three hundred two Contrast (mls) Forty-five cc Fluids (cc crystalloids) Sixty-five Procedural Complication(s) None Disposition PCU ACC Data Cardiac Status Clinical evaluation leading to the procedure CAD Presntation: No Sxs, no angina
[2017-06-04] MEDS ORDERED: FUROSEMIDE INJ 40 MG in SYRINGE 0 ML IV ONE (17:50)
[2017-06-04] MEDS: ASPIRIN 81 MG ECTAB PO SCH (21:41)
[2017-06-04] MEDS: VENLAFAXINE HCL XR 150 MG CAPXR PO SCH (21:42)
--- NOTE | 2017-06-04 23:29 | Hospitalist Progress Note ---
Hospitalist Progress Note Date of Service Jun 04, 2017. Subjective Pt evaluation today including: conversation w/ patient, conversation w/ business information consultant (Cardiology) Had cath today which was clean. had IVFs for prehydration and now more SOB, diuresed today. Feeling less SOB when I saw her this evening All Other Systems: Reviewed and Negative Objective Vital Signs Date Time Temp Pulse Resp B/P (MAP) Pulse Ox O2 Delivery O2 Flow Rate FiO2 06/04/17 20:00 Room Air 06/04/17 19:10 36.8 73 16 124/73 (90) 93 Room Air 06/04/17 16:00 Room Air 06/04/17 15:18 36.8 80 16 124/79 (94) 91 Room Air 06/04/17 14:15 84 18 117/66 (83) 93 Room Air 06/04/17 13:15 80 20 124/67 (86) 94 Room Air 06/04/17 12:15 76 20 122/66 (84) 93 Room Air 06/04/17 12:00 95 Room Air 06/04/17 11:38 36.6 86 16 122/75 (91) 94 Room Air 06/04/17 11:15 36.6 82 18 117/65 (82) 94 Room Air 06/04/17 10:45 36.6 78 20 120/78 (92) 98 Room Air 06/04/17 10:15 76 18 128/67 (87) 94 Room Air 06/04/17 10:00 81 20 127/75 (92) 96 Room Air 06/04/17 09:45 36.7 79 18 129/81 (97) 94 Room Air 06/04/17 09:30 86 20 128/79 (95) 86 Room Air 06/04/17 09:15 36.6 84 20 137/82 (100) 95 Room Air 06/04/17 08:55 75 16 137/87 (104) 96 Room Air 06/04/17 08:50 79 16 137/90 (106) 96 Room Air 06/04/17 08:40 80 16 144/90 (108) 96 Room Air 06/04/17 07:48 36.7 93 16 124/82 95 Room Air 06/04/17 07:30 Room Air 06/04/17 07:06 36.7 86 16 124/82 (96) 93 Room Air 06/04/17 04:07 36.7 82 18 130/80 (97) 96 Room Air 06/04/17 04:00 Room Air 06/04/17 00:00 Room Air Physical Exam General Appearance: WD/WN, no apparent distress Eyes: normal inspection, sclerae normal ENT: hearing grossly normal Neck: trachea midline Respiratory/Chest: no respiratory distress, no accessory muscle use, + crackles (at bases bilat) Cardiovascular: regular rate, rhythm, no edema, no gallop, + systolic murmur (2 /6 at apex) Abdomen: normal bowel sounds, non tender, soft, no organomegaly Extremities: non-tender, normal inspection, no pedal edema, no calf tenderness Neurologic/Psychiatric: alert, normal mood/affect, oriented x 3 Skin: normal color, warm/dry, no rash Laboratory Results Last 24 Hours Test 06/04/17 06:52 White Blood Count 5.35 K/uL Red Blood Count 4.01 M/uL Hemoglobin 11.2 g/dL Hematocrit 36.4 % Mean Corpuscular Volume 90.8 fL Mean Corpuscular Hemoglobin 27.9 pg Mean Corpuscular Hemoglobin Concent 30.8 g/dl Platelet Count 284 K/uL Mean Platelet Volume 8.8 fL Neutrophils (%) (Auto) 61.4 % Lymphocytes (%) (Auto) 25.2 % Monocytes (%) (Auto) 10.8 % Eosinophils (%) (Auto) 2.2 % Basophils (%) (Auto) 0.2 % Neutrophils # (Auto) 3.28 K/uL Lymphocytes # (Auto) 1.35 K/uL Monocytes # (Auto) 0.58 K/uL Eosinophils # (Auto) 0.12 K/uL Basophils # (Auto) 0.01 K/uL RDW Standard Deviation 45.9 fL RDW Coefficient of Variation 13.8 % Immature Granulocyte % (Auto) 0.2 % Immature Granulocyte # (Auto) 0.01 K/uL Sodium Level 143 mmol/L Potassium Level 4.0 mmol/L Chloride Level 109 mmol/L Carbon Dioxide Level 28 mmol/L Anion Gap 6.0 mmol/L Blood Urea Nitrogen 37 mg/dl Creatinine 1.60 mg/dl Est Creatinine Clear Calc Drug Dose 25.8 ml/min Estimated GFR () 34.7 Estimated GFR (Non- 29.9 BUN/Creatinine Ratio 23.2 Random Glucose 113 mg/dl Calcium Level 8.1 mg/dl Magnesium Level 2.0 mg/dl Assessment and Plan Mrs. 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 Her LVEF eventually got back up to 45% and she did reasonably well for several years thereafter. Unfortunately, last Wednesday the patient awakened with a persistent cough, chest congestion, SOB, progressive ELLIOTT, and progressive generalized weakness. Patient sought medical attention and was diagnosed with acute Decompensated CHF as confirmed by physical examination, CXR, and elevated Pro BNP. Patient treated with IV diuretics and has had a good diuretic response. Her breathing is approaching baseline, cough has improved dramatically, and she can lie flat without orthopnea, pnd, or worsening cough. She has an elevated Troponin I level but she has not had any classic anginal type symptoms. She had never had a cardiac catheterization but prior Stress Test in December 2016 suggested RCA or LCx territory ischemia. Additionally, her Echocardiogram performed on 06/03/2017 shows worsened LV systolic function, LVEF 20% to 25% with global hypokinesis, Borderline Concentric LVH with grade I diastolic dysfunction, Moderate to Severe MR, Moderate TR, and Elevated RVSP of 50 to 60 mmHg. 1. Acute Decompensated Systolic CHF/Nonischemic CM: -- Symptoms have improved dramatically. -- Monitor daily I&O's, body weights. -- Continue Lopressor 12.5 mg bid and then change to Toprol XL 25mg po daily for discharge -- Continue Olmesartan 20 mg daily. -- Continue diuretics with lasix IV for now and then lasix 20mg po daily on discharge -f/u Dr. Salas/Cardiology in 1-2 weeks -could possibly dc to home tomorrow -I/Os, daily weights, low Na+ diet -follow PRP 2. Cardiomyopathy with elevated Troponin I and worsened LV systolic function: -- Recommended further ischemic work up--> [facility] showed no significant CAD -- Continue Beta Hussain, ARB, Statin, and Aspirin. 3. Hypertension: -- Controlled, continue current regimen. 4. CKD stage III: -- Serum Creatinine stable at 1.6 which is her baseline 5. Mod-Severe Mitral regurgitation-follow as outpat with [facility] -not currently candidate for valve repair but may be down the road Proph-heparin SQ Dispo-tele, possible dc 1-2 days if diuresis adequate
[2017-06-05] VITALS: BP 129/85; PULSE 90; TEMP 36.8; O2SAT 96
[2017-06-05 03:40] VITALS: BP 134/76; PULSE 87; TEMP 36.5; O2SAT 94
[2017-06-05] MEDS: HEPARIN SOD 5000 UNIT/0.5 ML CARP SQ SCH (05:30)
[2017-06-05 07:22] LABS: HEMATOCRIT 35.7 % (37-47); MEAN CELL VOLUME 91.3 fL (80-100); MEAN CORPUSCULAR HEMOGLOBIN 29.9 pg (25-34); MEAN CORPUSCULAR HGB CONC 32.8 g/dl (32-36); MEAN PLATELET VOLUME 9.6 fL (7.4-10.4); PLATELET COUNT 281 K/uL (130-400); RED BLOOD COUNT 3.91 M/uL (4.2-5.4); WHITE BLOOD COUNT 6.39 K/uL (4.8-10.8)
[2017-06-05 07:40] VITALS: BP 143/82; PULSE 81; TEMP 36.8; O2SAT 96
[2017-06-05 07:56] LABS: BUN/CREATININE RATIO 26.9 (10-20); CALCIUM 8.5 mg/dl (8.5-10.1); CREATININE 1.5 mg/dl (0.60-1.20); POTASSIUM 3.9 mmol/L (3.5-5.1)
[2017-06-05] MEDS: ATORVASTATIN 10 MG TAB PO SCH (09:00)
[2017-06-05] MEDS ORDERED: FUROSEMIDE 20 MG TAB PO SCH (09:00)
[2017-06-05] MEDS ORDERED: METOPROLOL SUCC 25MG EXT REL TAB PO SCH (09:00)
[2017-06-05 12:08] VITALS: O2SAT 96
[2017-06-05 12:31] VITALS: BP 127/76; PULSE 71; TEMP 36.7; O2SAT 96
[2017-06-05] MEDS ORDERED: LSX20 PO (13:32)
[2017-06-05] MEDS ORDERED: TPRSR25 PO (13:32)
--- NOTE | 2017-06-05 13:37 | Discharge Instructions ---
Discharge Instructions Date of Service Jun 05, 2017. Admission Reason for Admission: Chf, Ckd, Left Heart Cath Discharge Discharge Diagnosis / Problem: Acute Decompensated Systolic CHF/Nonischemic CM Discharge Goals Goal(s): Decrease discomfort, Improve function, Increase independence, Improve disease control Activity Recommendations Activity Limitations: as noted below Lifting Limitations: gradually increase as tolerated Exercise/Sports Limitations: until after follow-up appointment May Resume Sexual Activity: when tolerated Shower/Bathe: no limitations Driving or Machine Use: resume 1 day after discharge . Instructions / Follow-Up Instructions / Follow-Up follow up with pcp in 1 week. Draw a blood test in 3 day to check potassium while taking Lasix( water pill) Current Hospital Diet Patient's current hospital diet: Low Sodium Diet (2gm Na), AHA Diet (Heart Healthy) Discharge Diet Recommended Diet: AHA Diet (Heart Healthy) Procedures Procedures Performed: Cardiac cath Pending Studies Studies pending at discharge: no Laboratory Results Lipid Panel Test 06/03/17 06:41 Range/Units Triglycerides Level 109 0-150 mg/dl Cholesterol Level 129 0-200 mg/dl HDL Cholesterol 47 mg/dl Cholesterol/HDL Ratio 2.7 LDL Cholesterol, Calculated 60 mg/dl Medical Emergencies . Who to Call and When: Medical Emergencies: If at any time you feel your situation is an emergency, please call 911 immediately. . Non-Emergent Contact Non-Emergency issues call your: Primary Care Provider Call Non-Emergent contact if: you have a fever, temperature is above 101, you have any medication questions . . "Provider Documentation" section prepared by Trisha Dunaway . VTE Core Measure Inpt VTE Proph given/why not?: Unfractionated heparin SQ
[2017-06-05 13:58] VITALS: BP 127/76; PULSE 71; TEMP 36.7; O2SAT 96
--- NOTE | 2017-06-05 13:59 | Discharge Summary ---
Discharge Summary Date of Service Jun 05, 2017. Discharge Summary Admission Date: Jun 02, 2017 at 18:12 Discharge Date: Jun 05, 2017 Discharge Disposition: Home Principal Diagnosis: Acute Decompensated Systolic CHF/Nonischemic CM Problems/Secondary Diagnoses: (1) CHF (congestive heart failure) Status: Chronic Procedures: Cardiac cath Consultations: Cardiology consult Medication Reconciliation New Medications: Furosemide (Furosemide) 20 Mg Tab 20 MG PO QAM for 14 Days, #14 TAB Metoprolol Succinate (Metoprolol Succinate ER) 25 Mg Tabcr 25 MG PO QAM for 30 Days, #30 Continued Medications: Amlodipine Besylate (Norvasc) 2.5 Mg Tab 2.5 MG PO HS Aspirin (Aspirin Ec) 81 Mg Tab 81 MG PO HS Atorvastatin (Atorvastatin Calcium) 10 Mg Tab 10 MG PO DAILY, #90 Olmesartan Medoxomil (Benicar) Unknown Strength Tab Unknown Dose PO DAILY, TAB Venlafaxine Hcl (Effexor Extended Rel) 150 Mg Cap 150 MG PO HS Referrals At Discharge Follow up Referrals: Uniform Maker Referral - Within a Month with Oren Salas MD Family Practice Referral - Within 1 Week with Fermin Olvera M.D. Discharge Exam Had cath yesterday which shows no ICM. had IVFs for prehydration and develop SOB , diuresed yesterday. Resole SOB when I saw her this morning. Review of Systems: Constitutional: No fever, No chills Respiratory: No cough, No sputum, No wheezing, No shortness of breath, No dyspnea on exertion, No dyspnea at rest Cardiovascular: No chest pain Abdomen: No pain, No nausea, No vomiting Musculoskeletal: No joint pain Genitourinary - Male: No hematuria, No urinary frequency, No urinary urgency Neurologic: No memory loss, No paralysis, No weakness, No numbness/tingling Endocrine: No fatigue Hematologic / Lymphatic: No abnormal bleeding/bruising Integumentary: No rash Physical Exam: General Appearance: WD/WN, no apparent distress ENT: hearing grossly normal Neck: supple, no adenopathy, no JVD Respiratory/Chest: lungs clear, normal breath sounds, no respiratory distress Cardiovascular: regular rate, rhythm, no edema, no JVD, no murmur Abdomen / GI: non tender, soft Extremities: no calf tenderness, no pedal edema Neurologic/Psychiatric: cyber security specialist II-XII nml as tested, alert, normal mood/affect , oriented x 3 Skin: no rash Lymphatic: no adenopathy Hospital Course Mrs. 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 Her LVEF eventually got back up to 45% and she did reasonably well for several years thereafter. Unfortunately, last Wednesday the patient awakened with a persistent cough, chest congestion, SOB, progressive ELLIOTT, and progressive generalized weakness. Patient sought medical attention and was diagnosed with acute Decompensated CHF as confirmed by physical examination, CXR, and elevated Pro BNP. Patient treated with IV diuretics and has had a good diuretic response. Her breathing is approaching baseline, cough has improved dramatically, and she can lie flat without orthopnea, pnd, or worsening cough. She has an elevated Troponin I level but she has not had any classic anginal type symptoms. She had never had a cardiac catheterization but prior Stress Test in December 2016 suggested RCA or LCx territory ischemia. Additionally, her Echocardiogram performed on 06/03/2017 shows worsened LV systolic function, LVEF 20% to 25% with global hypokinesis, Borderline Concentric LVH with grade I diastolic dysfunction, Moderate to Severe MR, Moderate TR, and Elevated RVSP of 50 to 60 mmHg. 1. Acute Decompensated Systolic CHF/Nonischemic CM: -- Symptoms have improved dramatically. -- Monitor daily I&O's, body weights. -- Continue Lopressor 12.5 mg bid and then change to Toprol XL 25mg po daily for discharge, Rx given. -- Continue Olmesartan 20 mg daily. -- Continue Lasix 20mg po daily on discharge for 14 days and repeat BMP in 2-3 days to see the trend of electrolyte. Rx given -f/u Dr. Salas/Cardiology in 1-2 weeks -could possibly dc to home tomorrow -I/Os, daily weights, low Na+ diet -follow with cardiology in 1 month. 2. Cardiomyopathy with elevated Troponin I and worsened LV systolic function: -- Recommended further ischemic work up--> [facility] showed no significant CAD -- Continue Beta Hussain, ARB, Statin, and Aspirin. 3. Hypertension: -- Controlled, continue current regimen. 4. CKD stage III: -- Serum Creatinine stable at 1.6 which is her baseline 5. Mod-Severe Mitral regurgitation-follow as outpat with ECHOs -not currently candidate for valve repair but may be down the road Total Time Spent: Greater than 30 minutes This includes examination of the patient, discharge planning, medication reconciliation, and communication with other providers. Discharge Instructions Please refer to the electronic Patient Visit Report (Discharge Instructions) for additional information. Follow-Up With Primary care in 1 week and cardiology within 1 month. Additional Copies To Fermin Olvera M.D.; Oren Saals MD
[2017-08-19] MEDS ORDERED: PRD20 PO (15:51)
[2017-08-19] MEDS ORDERED: TRAM-10 PO (16:23)
== END 2017-06-05 14:54 | disposition home or self-care (01) | DRG 286 ==
LOC: C.EDB 11:32 → C.MED 18:12 → ENRESERV 18:36 → C.2T 06-04 09:10
PROVIDERS: ADMIT Hospitalist; ATTEND Family Medicine
PROC: B211YZZ Fluoroscopy of Multiple Coronary Arteries using Other Contrast (ICD-10-PCS; principal; 2017-06-04 07:27)
PROC: 4A023N7 Measurement of Cardiac Sampling and Pressure, Left Heart, Percutaneous Approach (ICD-10-PCS; principal; 2017-06-04 07:27)
DX: I13.0 Hypertensive heart and chronic kidney disease with heart failure and stage 1 through stage 4 chronic kidney disease, or unspecified chronic kidney disease (principal); I50.21 Acute systolic (congestive) heart failure; N18.3 Chronic kidney disease, stage 3 (moderate); F31.9 Bipolar disorder, unspecified; I34.0 Nonrheumatic mitral (valve) insufficiency; E78.5 Hyperlipidemia, unspecified; Z96.641 Presence of right artificial hip joint; Z87.891 Personal history of nicotine dependence

== ENCOUNTER → 2017-06-08 | Outpatient (CLI) | payer BC ==
[~2017-06-08] MED LIST changes: +BNC5 PO; +FURO-85 PO; -LPR25 PO; +LPT10 PO; -LPT40 PO; +LSX20 PO; +OLME5TAB3 PO; +PRD20 PO; +TPRSR/50 PO; +TPRSR25 PO; +TRAM-10 PO
[2017-06-08 15:14] LABS: BLOOD UREA NITROGEN 29 mg/dl (7-18); BUN/CREATININE RATIO 19.4 (10-20); CALCIUM 8.7 mg/dl (8.5-10.1); CARBON DIOXIDE 25 mmol/L (21-32); CHLORIDE 110 mmol/L (98-107); GLUCOSE 93 mg/dl (70-99); POTASSIUM 4.1 mmol/L (3.5-5.1); SODIUM 143 mmol/L (136-145)
== END | disposition home or self-care (01) ==
LOC: C.LAB 13:36
PROVIDERS: ATTEND Internal Medicine Clinical Cardiac Electrophysiology
DX: I50.9 Heart failure, unspecified (principal); N18.3 Chronic kidney disease, stage 3 (moderate)

== ENCOUNTER → 2017-07-29 | Outpatient (CLI) | payer BC | END | disposition home or self-care (01) | LOC: C.MAMM 14:58 | PROVIDERS: ATTEND Nurse Practitioner | DX: Z91.89 Other specified personal risk factors, not elsewhere classified (principal); M81.0 Age-related osteoporosis without current pathological fracture ==

== ENCOUNTER → 2017-08-06 | Outpatient (CLI) | payer BC ==
[2017-08-06 12:46] LABS: BLOOD UREA NITROGEN 25 mg/dl (7-18); BUN/CREATININE RATIO 16.7 (10-20); CALCIUM 9.1 mg/dl (8.5-10.1); CARBON DIOXIDE 27 mmol/L (21-32); CHLORIDE 107 mmol/L (98-107); GLUCOSE 122 mg/dl (70-99); POTASSIUM 4.2 mmol/L (3.5-5.1); SODIUM 141 mmol/L (136-145)
[2017-08-06 13:52] LABS: RATIO 58.3 mcg/mg (0-30.0)
== END | disposition home or self-care (01) ==
LOC: C.LAB 11:20
PROVIDERS: ATTEND Nurse Practitioner
DX: I50.9 Heart failure, unspecified (principal)

== ENCOUNTER 2017-08-18 11:00 | Observation (INO) | payer BC ==
[~2017-08-18] VITALS: Ht 167.6 cm; Wt 65.7 kg
[~2017-08-18 11:00] MED LIST changes: -FURO-85 PO; -OLME5TAB3 PO; -PRD20 PO; -TPRSR/50 PO; -TRAM-10 PO
[2017-08-18] MEDS ORDERED: LIDOCAINE HCL 2% VISC SOLN 20 ML UDC PO STA (11:22)
[2017-08-18] MEDS ORDERED: ALUMINUM/MAGNESIUM SUSP 30 ML UDC PO STA (11:22)
[2017-08-18 11:41] LABS: BASO % 0.1 %; BASO ABS # 0.01 K/uL (0-0.2); COMPLETE YES; EOS % 0.4 %; HEMATOCRIT 37.4 % (37-47); IG% 0.3 %; LYMPH % 9.4 %; LYMPH ABS # 1.06 K/uL (1.2-3.4); MEAN CELL VOLUME 89.7 fL (80-100); MEAN CORPUSCULAR HEMOGLOBIN 29.3 pg (25-34); MEAN CORPUSCULAR HGB CONC 32.6 g/dl (32-36); MEAN PLATELET VOLUME 9.8 fL (7.4-10.4); MONO % 8.3 %; NEUT % 81.5 %; PLATELET COUNT 201 K/uL (130-400); RED BLOOD COUNT 4.17 M/uL (4.2-5.4)
[2017-08-18] MEDS ORDERED: FURO-85 PO (11:44)
[2017-08-18 11:47] LABS: INR 1.2 (0.9-1.1); PARTIAL THROMBOPLASTIN RATIO 1.1; PROTHROMBIN TIME (PATIENT) 12.4 SECONDS (9.0-12.0)
--- NOTE | 2017-08-18 11:52 | DIAGNOSTIC IMAGING REPORT ---
CHEST ONE VIEW PORTABLE CLINICAL HISTORY: 82 years-old Female presenting with chest pain. TECHNIQUE: Portable upright AP view of the chest was obtained. COMPARISON: 06/02/2017. FINDINGS: Mild enlargement of the cardiac silhouette, unchanged. Minimal reticular opacities at the left lung base, not significantly changed. No new focal infiltrate. No pleural effusion or pneumothorax. Degenerative changes of the left glenohumeral joint. Degenerative changes of the spine. Upper abdomen normal. IMPRESSION: 1. Minimal left basilar opacity, possibly atelectasis or scarring, unchanged. No new focal infiltrate. 2. Mild cardiomegaly. 3. No convincing evidence of acute cardiopulmonary disease. Electronically signed by: Elmer Martino M.D. 08/18/2017 11:51 AM Dictated Date/Time: 08/18/2017 11:49 AM
[2017-08-18 11:58] LABS: BUN/CREATININE RATIO 19.6 (10-20); CALCIUM 9.2 mg/dl (8.5-10.1); CREATININE 1.4 mg/dl (0.60-1.20); POTASSIUM 4.1 mmol/L (3.5-5.1)
[2017-08-18] MEDS ORDERED: NITROGLYCERIN OINT 2% 1GM PACKET ONE (12:04)
[2017-08-18] MEDS ORDERED: ASPIRIN 324 MG CHEW PO STA (12:04)
[2017-08-18] MEDS ORDERED: NITROGLYCERIN OINT 2% 1GM PACKET EXT ONE (12:15)
[2017-08-18] MEDS ORDERED: ALUMINUM/MAGNESIUM/SIMETH (MAALOX MAX) 30 ML UDC PO PRN (13:45)
[2017-08-18] MEDS ORDERED: NITROGLYCERIN OINT 2% 1GM PACKET EXT PRN (13:45)
[2017-08-18] MEDS ORDERED: MAGNESIUM HYDROXIDE SUSP 30 ML UDC PO PRN (13:45)
[2017-08-18] MEDS ORDERED: ACETAMINOPHEN 325 MG TAB PO PRN (13:45)
[2017-08-18] MEDS ORDERED: ONDANSETRON INJ 2 MG/ML 2 ML VIAL IV PRN (13:45)
[2017-08-18] MEDS ORDERED: POLYETHYLENE (MIRALAX) 17 GM PACK PO PRN (13:45)
[2017-08-18] MEDS ORDERED: OLME5TAB3 PO (13:47)
[2017-08-18] MEDS ORDERED: TPRSR/50 PO (13:47)
--- NOTE | 2017-08-18 14:00 | History and Physical ---
History & Physical Date & Time of Service: Aug 18, 2017 at 13:49 Chief Complaint: Chest Pains Primary Care Physician: Raquel Zaragoza CRNP History of Present Illness Source: patient, clinic records, hospital records This is an 82 y/o female with a history of systolic CHF, HTN, HLD, non-ischemic cardiomyopathy, CKD stage III and depression who presented to the ED on 08/18 with chest pain. The patient states she developed a 6/10 pressure across her chest around 0200 this morning. She states the pain is worse with certain movements, such when she rolls onto her side. She noticed associated shortness of breath but denied any dizziness, radiation of the pain, numbness/tingling, or nausea. She complains of increased weakness and fatigue today. She also complains of dyspnea on exertion and palpitations, but state that those symptoms are chronic and are not any worse today than usual. The patient had a cardiac cath in May 2017 which did not showed non-obstructive CAD. The patient denies fevers, chills, sweats, claudication, cough, wheezing, nausea, vomiting, abdominal pain, dysuria, hematuria, urinary retention, paralysis, motor weakness, numbness and tingling. Past Medical/Surgical History Medical Problems: (1) Anemia Status: Resolved (2) Bipolar disorder Status: Chronic (3) CHF (congestive heart failure) Permanent Comment: Abnormal stress test suggestive of possible RCA or circumflex disease with peak dobutamine induced ischemia LVEF 40-45% 12/2016 Status: Chronic (4) CKD (chronic kidney disease) stage III Status: Chronic (5) Diastolic dysfunction Permanent Comment: grade 1 diastolic dysfunction on echo 01/16/16 Status: Chronic (6) H/O viral myocarditis Permanent Comment: in remote past with improvement of LV EF to 55% on echo 2015 Status: Chronic (7) History of gout Status: Chronic (8) Hyperlipidemia Status: Chronic (9) Hypertension Status: Chronic (10) Mitral regurgitation Permanent Comment: mild to moderate on echo 12/2016 Status: Chronic Surgical Problems: (1) History of hysterectomy Status: Chronic (2) History of right hip replacement Status: Chronic (3) S/P appendectomy Status: Chronic (4) S/P ORIF (open reduction internal fixation) fracture Permanent Comment: left femur 01/16/16 Status: Chronic (5) Status post left hip replacement Status: Chronic Family History Diabetes mellitus FH: CHF (congestive heart failure) FATHER MOTHER BROTHER Hypertension Social History Smoking Status: Former Smoker (quit 40 years ago) Smokeless Tobacco Use: No Alcohol Use: occasionally (1 glass wine every few months) Drug Use: none Marital Status: Housing status: lives with family (daughter, son in law and grandchild) Occupational Status: retired Multi-Drug Resistant Organisms History of MDRO: No Allergies Coded Allergies: Lobster (Verified Adverse Reaction, Intermediate, GI SYMPTOMS, 01/22/17) per pt report. Home Medications Scheduled Amlodipine Besylate (Norvasc), 2.5 MG PO HS Aspirin (Aspirin Ec), 81 MG PO HS Atorvastatin (Atorvastatin Calcium), 10 MG PO DAILY Metoprolol Succinate (Metoprolol Succinate ER), 50 MG PO DAILY Olmesartan Medoxomil (Olmesartan Medoxomil), 10 MG PO DAILY Venlafaxine Hcl (Effexor Extended Rel), 150 MG PO HS Scheduled PRN Furosemide (Lasix), 1 TAB PO DAILY PRN for weight gain over 3 pounds Review of Systems Constitutional: + weakness, + fatigue, No fever, No chills, No sweats Eyes: No worsening of vision, No eye pain, No diplopia ENT: No hearing loss, No sore throat, No trouble swallowing Respiratory: + shortness of breath, + dyspnea on exertion, No cough, No wheezing Cardiovascular: + chest pain, + palpitations, No claudication Abdomen: No pain, No nausea, No vomiting Musculoskeletal: No joint pain, No muscle pain, No calf pain Genitourinary - Female: No dysuria, No urinary retention, No hematuria Neurologic: No paralysis, No weakness, No numbness/tingling Integumentary: No rash, No itch, No color change Physical Exam Vital Signs Date Time Temp Pulse Resp B/P (MAP) Pulse Ox O2 Delivery O2 Flow Rate FiO2 08/18/17 12:31 134/79 08/18/17 12:30 75 24 97 08/18/17 12:01 141/80 08/18/17 12:00 75 19 95 08/18/17 11:42 77 18 141/79 96 Room Air 08/18/17 11:41 141/79 08/18/17 11:30 81 23 97 08/18/17 11:20 98 Room Air 08/18/17 11:19 81 08/18/17 11:15 152/93 08/18/17 11:07 36.7 84 20 146/76 96 Room Air General appearance: Well-developed, well-nourished, no apparent distress Head: Normocephalic, atraumatic Eyes: Normal inspection, PERRL, EOMI ENT: Normal ENT inspection, hearing grossly normal, pharynx normal Neck: Supple, no JVD, trachea midline Respiratory/Chest: Lungs clear to auscultation, normal breath sounds, no respiratory distress Cardiovascular: Regular rate & rhythm, no gallop, no murmur Abdomen/GI: Normal bowel sounds, non-tender, soft Extremities/Musculoskeletal: Normal inspection, no calf tenderness, no pedal edema Neurological/Psych: Alert, normal mood/affect, oriented x 3 Skin: Normal color, warm/dry, no rash Diagnostics Laboratory Results Results Past 24 Hours Test 08/18/17 11:20 08/18/17 11:31 Range/Units White Blood Count 11.30 4.8-10.8 K/uL Red Blood Count 4.17 4.2-5.4 M/uL Hemoglobin 12.2 12.0-16.0 g/dL Hematocrit 37.4 37-47 % Mean Corpuscular Volume 89.7 80-100 fL Mean Corpuscular Hemoglobin 29.3 25-34 pg Mean Corpuscular Hemoglobin Concent 32.6 32-36 g/dl Platelet Count 201 130-400 K/uL Mean Platelet Volume 9.8 7.4-10.4 fL Neutrophils (%) (Auto) 81.5 % Lymphocytes (%) (Auto) 9.4 % Monocytes (%) (Auto) 8.3 % Eosinophils (%) (Auto) 0.4 % Basophils (%) (Auto) 0.1 % Neutrophils # (Auto) 9.22 1.4-6.5 K/uL Lymphocytes # (Auto) 1.06 1.2-3.4 K/uL Monocytes # (Auto) 0.94 0.11-0.59 K/uL Eosinophils # (Auto) 0.04 0-0.5 K/uL Basophils # (Auto) 0.01 0-0.2 K/uL RDW Standard Deviation 43.6 36.4-46.3 fL RDW Coefficient of Variation 13.4 11.5-14.5 % Immature Granulocyte % (Auto) 0.3 % Immature Granulocyte # (Auto) 0.03 0.00-0.02 K/uL Prothrombin Time 12.4 9.0-12.0 SECONDS Prothromb Time International Ratio 1.2 0.9-1.1 Activated Partial Thromboplast Time 27.4 21.0-31.0 SECONDS Partial Thromboplastin Ratio 1.1 Sodium Level 140 136-145 mmol/L Potassium Level 4.1 3.5-5.1 mmol/L Chloride Level 107 98-107 mmol/L Carbon Dioxide Level 25 21-32 mmol/L Anion Gap 8.0 3-11 mmol/L Blood Urea Nitrogen 27 7-18 mg/dl Creatinine 1.40 0.60-1.20 mg/dl Est Creatinine Clear Calc Drug Dose 29.5 ml/min Estimated GFR () 40.7 Estimated GFR (Non- 35.1 BUN/Creatinine Ratio 19.6 10-20 Random Glucose 110 70-99 mg/dl Calcium Level 9.2 8.5-10.1 mg/dl Bedside Troponin I 0.070 0-0.045 ng/ml Diagnostic Radiology Reviewed the following studies and agree with interpretation as follows: Patient Name: MUSA PARK Unit Number: [id number] Dictated: 08/18/171148 Transcribed: 08/18/171148 PBS Printed Date/Time: [~ rep prt dt]/[~ rep prt tm] [~ rep ct labl] - [~ rep ct ivnm] [facility] [place] [address] Dictated: 08/18/171148 Transcribed: 08/18/171148 PBS Printed Date/Time: [~ rep prt dt]/[~ rep prt tm] [~ rep ct labl] - [~ rep ct ivnm] Patient: MUSA PARK Address1: [facility] Med Rec: [id number] Address2: Acct ID: [id number] [facility] Zip: [place] [address] Date: 1935 Sex: F Room/Bed: Ref Phy: Gus Cheema M.D. SC: C.EDB Att Phy: Report #: [id number] Niya Phy: Raquel Zaragoza CRNP Test: CXR1P Admit Phy: Staffing Administrator: DEMETRI Interpreting Phy: Elmer Martino MD Diagnosis: CHEST PAINS Ordering Phy: Ronaldo Mendoza MD Service Date: 08/18/17 Admit Date: 08/18/17 MNE: [id number] CONF: DICTATED BY: Elmer Martino MD]] CC: Raquel Zaragoza CRNP Choe, Thomas S., M.D. Eaton, Jeffrey G., M.D. Endcc: [~ rep ct add3]] CHEST ONE VIEW PORTABLE CLINICAL HISTORY: 82 years-old Female presenting with chest pain. TECHNIQUE: Portable upright AP view of the chest was obtained. COMPARISON: 06/02/2017. FINDINGS: Mild enlargement of the cardiac silhouette, unchanged. Minimal reticular opacities at the left lung base, not significantly changed. No new focal infiltrate. No pleural effusion or pneumothorax. Degenerative changes of the left glenohumeral joint. Degenerative changes of the spine. Upper abdomen normal. IMPRESSION: 1. Minimal left basilar opacity, possibly atelectasis or scarring, unchanged. No new focal infiltrate. 2. Mild cardiomegaly. 3. No convincing evidence of acute cardiopulmonary disease. Electronically signed by: Elmer Martino M.D. 08/18/2017 11:51 AM Dictated Date/Time: 08/18/2017 11:49 AM The status of this report is Signed. Draft = Not yet reviewed or approved by Radiologist. Signed = Reviewed and approved by Radiologist. <AttendingPhy></AttendingPhy> <FamilyPhy>Gus Cheema M.D.</FamilyPhy> < PrimaryPhy>Raquel Zaragoza CRNP</PrimaryPhy> <UnitNumber>[id number]</UnitNumber> <VisitNumber>[id number]</VisitNumber> <PatientName>MUSA PARK</PatientName> < DateOfBirth>1935</DateOfBirth> <Location>C.EDB</Location> <ServiceDate></ServiceDate> <MNE>ESINDI</MNE> <OrderingPhy>Ronaldo Mendoza MD</ OrderingPhy> <OrderingPhyMNE>f rep ord dr zapien</OrderingPhyMNE> <DictatingPhyMNE> f rep dict dr zapien</DictatingPhyMNE> <CCListMNE>f rep ct maddiee</CCListMNE> < AdmittingPhyMNE>f pt admit dr zapien</AdmittingPhyMNE> <AttendingPhyMNE>f pt attend dr zapien</AttendingPhyMNE> <ConsultingPhyMNE>f pt consult dr zapien</ConsultingPhyMNE> <FamilyPhyMNE>f pt fam dr zapien</FamilyPhyMNE> <OtherPhyMNE>f pt other dr zapien</OtherPhyMNE> < PrimaryPhyMNE>f pt prim care dr zapien</PrimaryPhyMNE> <ReferringPhyMNE>f pt referring dr zapien</ReferringPhyMNE> EKG Reviewed EKG and agree with interpretation as follows: 75 bpm, NSR, T wave inversions leads I and aVL Impression Assessment and Plan 82 y/o female with a history of systolic CHF, HTN, HLD, non-ischemic cardiomyopathy, CKD stage III and depression who presented to the ED on 08/18 with chest pain. Pt arrived to ED afebrile, VSS. CXR no acute disease. EKG NSR with lateral T wave inversions. Troponin 0.07. WBC 11.3, labs otherwise unremarkable. Pt received nitro paste and ASA, as well as lidocaine and Maalox for possible GERD. Chest pain, ACS r/o -Admit to telemetry for observation -Trend cardiac enzymes q8h x 3 sets. First troponin mildly elevated at 0.07 -Stress echo in am if negative -NPO after midnight -EKG q am and prn chest pain -Nitro paste q6h prn chest pain -Continue ASA, statin, and metoprolol -Consult cardiology, pt follows with Dr. Cheema HTN, HLD, non-ischemic cardiomyopathy--stable -Continue ASA, Lipitor 10 mg PO qd, olmesartan 10 mg PO qd, Norvasc 2.5 mg PO qd , and Toprol 50 mg PO qd Systolic CHF--stable -Last echo 05/2017 showed EF 20-25% -Continue metoprolol, olmesartan -Pt takes Lasix prn weight gain of 3 pounds or more -Daily weights, I's & O's CKD stage III--stable -Creatinine at baseline Depression -Continue Effexor 150 mg PO qd Possible GERD -Protonix 40 mg PO qd DVT prophylaxis -Heparin 5000 units SC q8h -MIGUEL jolly and ABDIs Code Status -Level I, FULL RESUSCITATION STATUS Level of Care Telemetry Resuscitation Status FULL RESUSCITATION VTE Prophylaxis VTE Risk Assessment Done? Y/N: Yes Risk Level: Moderate Given or contraindicated: Unfractionated heparin SQ, T.E.D. Stockings, SCD's
[2017-08-18] MEDS ORDERED: IV FLUIDS COMPLETED PRN (14:30)
[2017-08-18] MEDS ORDERED: PANTOprazole SOD 40 MG TAB PO SCH (14:30)
[2017-08-18 15:15] VITALS: BP 140/82; TEMP 37; O2SAT 96
[2017-08-18 15:45] VITALS: BP 137/80; PULSE 72; TEMP 36.9; O2SAT 93
--- NOTE | 2017-08-18 16:59 | EMERGENCY ROOM VISIT NOTE ---
History Report prepared by Kristian: Shyanne Parmar Under the Supervision of: Dr. Ronaldo Mendoza M.D. First contact with patient: 11:13 Chief Complaint: CHEST PAIN Stated Complaint: CHEST PAINS History of Present Illness The patient is an 82 year old female who presents to the Emergency Room with complaints of chest pain beginning last night around 2 am. The patient states that the pain is across her chest and feels tight. She feels more short of breath and weaker today. Her pain worsens with movement. The patient states her arm feels sore but se believes it may be from sleeping on it. The patient has had similar symptoms before from indigestion but her symptoms usually subside when she belches. Her symptoms have not subsided today. The patient has a history of CHF. She sees Dr. Cheema-Cardiology. Source of History: patient Onset: last night Position: chest Quality: other (tigthness) Timing: constant Modifying Factors (Worsening): movement Associated Symptoms: + SOB, + weakness Review of Systems See HPI for pertinent positives & negatives. A total of 10 systems reviewed and were otherwise negative. Past Medical & Surgical Medical Problems: (1) VITOR (acute kidney injury) (2) Anemia (3) Bipolar disorder (4) Chest pain (5) CHF (congestive heart failure) (6) CKD (chronic kidney disease) (7) Diastolic dysfunction (8) H/O viral myocarditis (9) History of gout (10) Hyperlipidemia (11) Hypertension (12) Mitral regurgitation (13) Cesilia-prosthetic fracture of femur following total hip arthroplasty Surgical Problems: (1) History of hysterectomy (2) History of left hip replacement (3) History of right hip replacement (4) S/P appendectomy (5) S/P ORIF (open reduction internal fixation) fracture (6) Status post left hip replacement Family History FH: CHF (congestive heart failure) FATHER MOTHER BROTHER Social History Smoking Status: Never Smoker Drug Use: none Marital Status: Housing Status: assisted living Occupation Status: retired Current/Historical Medications Scheduled Amlodipine Besylate (Norvasc), 2.5 MG PO HS Aspirin (Aspirin Ec), 81 MG PO HS Atorvastatin (Atorvastatin Calcium), 10 MG PO DAILY Metoprolol Succinate (Metoprolol Succinate ER), 50 MG PO DAILY Olmesartan Medoxomil (Olmesartan Medoxomil), 10 MG PO DAILY Venlafaxine Hcl (Effexor Extended Rel), 150 MG PO HS Scheduled PRN Furosemide (Lasix), 1 TAB PO DAILY PRN for weight gain over 3 pounds Allergies Coded Allergies: Lobster (Verified Adverse Reaction, Intermediate, GI SYMPTOMS, 01/22/17) per pt report. Physical Exam Vital Signs Date Time Temp Pulse Resp B/P (MAP) Pulse Ox O2 Delivery O2 Flow Rate FiO2 08/18/17 13:36 72 16 96 08/18/17 13:31 140/81 08/18/17 13:06 76 23 97 08/18/17 13:01 136/78 08/18/17 12:36 74 24 97 08/18/17 12:31 134/79 08/18/17 12:30 75 24 97 08/18/17 12:01 141/80 08/18/17 12:00 75 19 95 08/18/17 11:42 77 18 141/79 96 Room Air 08/18/17 11:41 141/79 08/18/17 11:30 81 23 97 08/18/17 11:20 98 Room Air 08/18/17 11:19 81 08/18/17 11:15 152/93 08/18/17 11:07 36.7 84 20 146/76 96 Room Air Physical Exam Constitutional: Vital signs reviewed. Eyes: Pupils are equal round reactive to light. Conjunctiva are noninjected. ENT: Pharynx is clear without erythema or exudate. Mucous membranes are moist. Neck supple without meningeal signs. Respiratory: Clear to auscultation bilaterally. Breath sounds are equal bilaterally. Cardiovascular: Regular rate and rhythm. No rubs or gallops. GI: Soft, nondistended and nontender. Bowel sounds are present. Musculoskeletal: No peripheral edema. No lower extremity tenderness. Integumentary: No cyanosis. Neurological: The patient is awake and alert. No focal deficits. Psychiatric: Normal affect. Medical Decision & Procedures ER Provider Diagnostic Interpretation: Radiology results as stated below per my review and the radiologist's interpretation: CHEST ONE VIEW PORTABLE FINDINGS: Mild enlargement of the cardiac silhouette, unchanged. Minimal reticular opacities at the left lung base, not significantly changed. No new focal infiltrate. No pleural effusion or pneumothorax. Degenerative changes of the left glenohumeral joint. Degenerative changes of the spine. Upper abdomen normal. IMPRESSION: 1. Minimal left basilar opacity, possibly atelectasis or scarring, unchanged. No new focal infiltrate. 2. Mild cardiomegaly. 3. No convincing evidence of acute cardiopulmonary disease. Electronically signed by: Elmer Martino M.D. Laboratory Results 08/18/17 11:20 Red Blood Count 4.17, Mean Corpuscular Volume 89.7, Mean Corpuscular Hemoglobin 29.3, Mean Corpuscular Hemoglobin Concent 32.6, Mean Platelet Volume 9.8, Neutrophils (%) (Auto) 81.5, Lymphocytes (%) (Auto) 9.4, Monocytes (%) (Auto) 8.3, Eosinophils (%) (Auto) 0.4, Basophils (%) (Auto) 0.1, Neutrophils # (Auto) 9.22, Lymphocytes # (Auto) 1.06, Monocytes # (Auto) 0.94, Eosinophils # (Auto) 0.04, Basophils # (Auto) 0.01 08/18/17 11:20 Test 08/18/17 11:20 08/18/17 11:31 White Blood Count 11.30 K/uL (4.8-10.8) Red Blood Count 4.17 M/uL (4.2-5.4) Hemoglobin 12.2 g/dL (12.0-16.0) Hematocrit 37.4 % (37-47) Mean Corpuscular Volume 89.7 fL (80-100) Mean Corpuscular Hemoglobin 29.3 pg (25-34) Mean Corpuscular Hemoglobin Concent 32.6 g/dl (32-36) Platelet Count 201 K/uL (130-400) Mean Platelet Volume 9.8 fL (7.4-10.4) Neutrophils (%) (Auto) 81.5 % Lymphocytes (%) (Auto) 9.4 % Monocytes (%) (Auto) 8.3 % Eosinophils (%) (Auto) 0.4 % Basophils (%) (Auto) 0.1 % Neutrophils # (Auto) 9.22 K/uL (1.4-6.5) Lymphocytes # (Auto) 1.06 K/uL (1.2-3.4) Monocytes # (Auto) 0.94 K/uL (0.11-0.59) Eosinophils # (Auto) 0.04 K/uL (0-0.5) Basophils # (Auto) 0.01 K/uL (0-0.2) RDW Standard Deviation 43.6 fL (36.4-46.3) RDW Coefficient of Variation 13.4 % (11.5-14.5) Immature Granulocyte % (Auto) 0.3 % Immature Granulocyte # (Auto) 0.03 K/uL (0.00-0.02) Prothrombin Time 12.4 SECONDS (9.0-12.0) Prothromb Time International Ratio 1.2 (0.9-1.1) Activated Partial Thromboplast Time 27.4 SECONDS (21.0-31.0) Partial Thromboplastin Ratio 1.1 Anion Gap 8.0 mmol/L (3-11) Est Creatinine Clear Calc Drug Dose 29.5 ml/min Estimated GFR () 40.7 Estimated GFR (Non- 35.1 BUN/Creatinine Ratio 19.6 (10-20) Calcium Level 9.2 mg/dl (8.5-10.1) Bedside Troponin I 0.070 ng/ml (0-0.045) Laboratory results as reviewed by me. Medications Administered Medications (Trade) Dose Ordered Sig/Chinedu Route Start Time Stop Time Status Last Admin Dose Admin Lidocaine HCl (Viscous Lidocaine 2% Soln) 10 ml NOW STAT PO 08/18/17 11:22 08/18/17 11:23 DC 08/18/17 11:41 10 ML Al Hydroxide/Mg Hydroxide (Maalox Susp) 30 ml NOW STAT PO 08/18/17 11:22 08/18/17 11:23 DC 08/18/17 11:41 30 ML Aspirin (Aspirin Chew) 324 mg NOW STAT PO 08/18/17 12:04 08/18/17 12:06 DC 08/18/17 12:09 324 MG Nitroglycerin (Nitroglycerin 2% Oint) 1 inch STK-MED ONCE .ROUTE 08/18/17 12:04 08/18/17 12:05 DC 08/18/17 12:09 0.5 INCH Acetaminophen (Tylenol Tab) 650 mg Q4H PRN PO 08/18/17 13:45 09/17/17 13:44 08/18/17 16:41 650 MG ECG Indication: chest pain Rate (beats per minute): 75 Rhythm: normal sinus Findings: nonspecific-ST abn (Lateral), Q waves (V1 and V2) Comparison ECG Date: June 02, 2017 Change: no significant change ED Course 1116: The patient was evaluated in room B8. A complete history and physical exam was performed. 1122: Maalox Susp 30 ml PO, Lidocaine HCL 10 ml PO. 1203: The patients is still having some chest pain but it is improving. I discussed her test results with her. 1204: Nitroglycerin 1 inch .ROUTE, Aspirin 324 mg PO. 1210: I discussed the patients case with Dr. Kenneth BETANCOURT. The patient will be further evaluated by him. 1215: Nitroglycerin 0.5 inch EXT. 1223: The patient's chest discomfort now gone. She says that the nitroglycerin seemed to help more than the drink she had earlier. . Medical Decision This is an 82-year-old female who presents with chest pain. Differential diagnosis includes unstable angina, [place], pleurisy, pneumonia, GERD. I did perform a limited focused review of portions of the patient's old chart on the electronic medical record. The patient had a cardiac catheterization on June 04 which showed 30% stenosis of the mid portion of right coronary artery. Otherwise, her coronary arteries were unremarkable. I did evaluate the patient as noted above. The patient is presenting with chest pain. She describes it as a tightness with increased shortness of breath and weakness today. She did state that she has had similar pain in the past which seemed to be relieved with belching. IV access was established. The patient was placed on a continuous cardiac rn. Initially I treated her with a GI cocktail. I did order and personally review the patient's 12-lead EKG and chest x-ray as described above. Her twelve-lead EKG shows some Q waves septally. I did order and review the patient's blood work as noted in the electronic medical record. Her troponin is slightly elevated. I did reassess the patient. She states her chest pain seemed to be improved with still had some. I did treat her with nitroglycerin paste and aspirin. I did discuss the test results with the patient and recommended hospitalization. I did discuss case with the hospitalist and child support case officer. I did reassess the patient and she stated that her chest pain resolved. Medication Reconcilliation Current Medication List: was personally reviewed by me Blood Pressure Screening Patient's blood pressure: Elevated blood pressure Blood pressure disposition: Referred to PCP Consults Time Called: 1209 Consulting Physician: Dr. Narayan Returned Call: 1210 We discussed the patient and her results. The patient will be further evaluated by him. Impression Primary Impression: Acute chest pain Additional Impression: Elevated troponin I level Scribe Attestation The scribe's documentation has been prepared under my direct and personally reviewed by me in its entirety. I confirm that the note above accurately reflects all work, treatment, procedures, and medical decision making performed by me. Departure Information Dispostion Being Evaluated By Hospitalist Referrals Raquel Zaragoza CRNP (PCP) Patient Instructions [facility] Problem Qualifiers
[2017-08-18 17:20] VITALS: BP 137/80; PULSE 72; TEMP 36.9; O2SAT 93; Ht 167.6 cm; Wt 65.7 kg
[2017-08-18] MEDS ORDERED: MoRPHine SULFATE 2 MG/ML CARP ONE (18:04)
[2017-08-18 20:28] VITALS: BP 117/71; PULSE 65; TEMP 37.2; O2SAT 96
[2017-08-18 20:30] LABS: CKMB/CK RATIO 1.4 (0-3.0)
[2017-08-18] MEDS ORDERED: AMLODIPINE BESYLATE 5 MG TAB PO SCH (21:00)
[2017-08-18] MEDS ORDERED: VENLAFAXINE HCL XR 150 MG CAPXR PO SCH (21:00)
[2017-08-18] MEDS: HEPARIN SOD 5000 UNIT/0.5 ML CARP SQ SCH (21:46)
[2017-08-18 22:34] VITALS: O2SAT 96
[2017-08-18] MEDS: MoRPHine SULFATE 2 MG/ML CARP IV PRN (23:29)
[2017-08-18 23:43] VITALS: BP 130/75; PULSE 78; TEMP 37; O2SAT 93
[2017-08-19] VITALS (8 sets, daily range): BP systolic 121–143; BP diastolic 69–81; PULSE 45–83; TEMP 36.2–37; O2SAT 91–98
[2017-08-19 04:03] LABS: HEMATOCRIT 35.2 % (37-47); MEAN CELL VOLUME 91.2 fL (80-100); MEAN CORPUSCULAR HEMOGLOBIN 28.8 pg (25-34); MEAN CORPUSCULAR HGB CONC 31.5 g/dl (32-36); MEAN PLATELET VOLUME 9.9 fL (7.4-10.4); PLATELET COUNT 181 K/uL (130-400); RED BLOOD COUNT 3.86 M/uL (4.2-5.4); WHITE BLOOD COUNT 12.19 K/uL (4.8-10.8)
[2017-08-19 04:27] LABS: BUN/CREATININE RATIO 19.7 (10-20); CALCIUM 8.5 mg/dl (8.5-10.1); CREATININE 1.4 mg/dl (0.60-1.20); POTASSIUM 3.8 mmol/L (3.5-5.1)
[2017-08-19 04:41] LABS: CKMB/CK RATIO 1.5 (0-3.0)
[2017-08-19] MEDS: HEPARIN SOD 5000 UNIT/0.5 ML CARP SQ SCH ×2 (05:52→14:09)
[2017-08-19] MEDS ORDERED: METOPROLOL SUCC 50MG EXT REL TAB PO SCH (09:00)
[2017-08-19] MEDS ORDERED: OLMESARTAN MEDOXOMIL 20 MG TAB PO SCH (09:00)
[2017-08-19] MEDS ORDERED: ATORVASTATIN 10 MG TAB PO SCH (09:00)
[2017-08-19] MEDS ORDERED: PANTOprazole SOD 40 MG TAB PO SCH (09:00)
[2017-08-19 09:04] LABS: C-REACTIVE PROTEIN 7.14 mg/dl (0-0.29)
--- NOTE | 2017-08-19 09:47 | CARDIOLOGY PROGRESS NOTE ---
DATE: 08/19/2017 DATE: 08/19/2017 SUBJECTIVE: Mrs. Quesada is resting comfortably in bed. She does continue to grimace anterior chest pain which is pleuritic in nature. OBJECTIVE: VITAL SIGNS: Blood pressure 121/69 with a regular pulse of 76. Respiratory rate is 16. The patient is afebrile at 36.9 degrees Celsius. Saturations 95% on 2 liters nasal cannula. NECK: Supple with full carotid upstrokes. There are no carotid bruits. Jugular venous pressure is flat at 90 degrees. A prominent V-wave is noted. CARDIOVASCULAR EXAMINATION: Reveals a regular rhythm with normal S1 and S2. A 1/6 apical holosystolic murmur is noted. No S3 or S4. LUNGS: Clear without rales, rhonchi, or wheezes. ABDOMEN: Soft, nontender without bruits. EXTREMITIES: Reveal intact radial artery pulses bilaterally. There is no peripheral edema. LABORATORY DATA: CBC notes a hemoglobin of 11.1, hematocrit 35.2, white count 12.1, platelet count 161,000. Electrolytes note a sodium of 140, potassium 3.8, chloride 106, bicarb 28, BUN 28, creatinine 1.4, glucose 123. Troponin I level is mildly elevated at 0.055 with a follow-up value of 0.05. CKs are normal at 44 and 40 with MB fractions of 0.6. EKG notes sinus rhythm with a left atrial abnormality and an old anteroseptal myocardial infarction. administrative support assoc notes PVCs. Chest x-ray shows cardiomegaly but no evidence of congestive failure. MEDICATIONS: 1. Metoprolol succinate 50 mg daily. 2. Benicar 10 mg daily. 3. Amlodipine 2.5 mg at bedtime. 4. Lipitor 80 mg at bedtime. 5. Aspirin 81 mg per day. 6. Heparin 5000 units subQ q. 8 hours. 7. Protonix 40 mg per day. 8. Effexor XR 150 mg at bedtime. IMPRESSION AND PLAN: 1. Pleuritic chest pain -- doubt that this represents myocardial ischemia. The patient did have a cardiac catheterization performed in May which noted only a 30% mid RCA stenosis. Review of the record notes a chronically elevated troponin I levels. 2. Nonischemic cardiomyopathy -- first diagnosed in the and felt to be a viral etiology. Her ejection fraction improved to 40-45%, however, when she presented to our institution May she was in decompensated systolic congestive failure. Ejection fraction at that time was 20-25%. Her long acting metoprolol has been up titrated in the outpatient setting recently. 3. Systolic congestive heart failure -- as above. Compensated at this time. 4. Moderate severe mitral regurgitation. 5. Hypertension -- controlled. Would discontinue amlodipine in the face of her left ventricular dysfunction. 6. Hypercholesterolemia -- continue statin. 7. Chronic renal failure. 8. Degenerative joint disease, status post bilateral total hip replacements. 9. Bipolar disorder.
[2017-08-19] MEDS: MoRPHine SULFATE 2 MG/ML CARP IV PRN (12:11)
--- NOTE | 2017-08-19 13:54 | Hospitalist Progress Note ---
Hospitalist Progress Note Date of Service Aug 19, 2017. Subjective Pt evaluation today including: conversation w/ patient, physical exam, chart review, lab review, review of studies, review of inpatient medication list Patient seen and evaluated. No acute events overnight. Telemetry monitoring unremarkable. Mildly elevated troponin but chronic elevation. Continues to have intermittent CP that worsens with movement and partly pleuritic. States that she has had issues similar like this in the past. Also has L enlarged neck vessel - appears to be more jugular with R carotid pulsations. States this fluctuates in size and shrinks down. CP was initially across her mid-chest but is now more in the upper L chest and into L shoulder. She denies known FMHx of rheumatological conditions or previous diagnosis of PMR. Patient reporting generalized fatigue and upper extremity/torso weakness mostly on L side. She was placed on steroids in the past for similar issues and figured it was for arthritis but cannot recall if she noticed improvement. Constitutional: No fever, No chills Respiratory: No cough, No shortness of breath Cardiovascular: + chest pain Abdomen: No pain, No nausea, No vomiting, No diarrhea, No constipation Musculoskeletal: + joint pain (L shoulder), No calf pain Female : No dysuria Heme: No abnormal bleeding/bruising Medications Current Inpatient Medications Medications (Trade) Dose Ordered Sig/Chinedu Route Start Time Stop Time Status Last Admin Dose Admin Heparin Sodium (Porcine) (Heparin Sq 5000 Unit/0.5ml) 5,000 unit Q8 SQ 08/18/17 22:00 09/17/17 21:59 08/19/17 05:52 5,000 UNIT Acetaminophen (Tylenol Tab) 650 mg Q4H PRN PO 08/18/17 13:45 09/17/17 13:44 08/18/17 16:41 650 MG Al Hydrox/Mg Hydrox/Simethicone (Maalox Max Susp) 15 ml Q4H PRN PO 08/18/17 13:45 09/17/17 13:44 Magnesium Hydroxide (Milk Of Magnesia Susp) 30 ml Q12H PRN PO 08/18/17 13:45 09/17/17 13:44 Ondansetron HCl (Zofran Inj) 4 mg Q6H PRN IV 08/18/17 13:45 09/17/17 13:44 Nitroglycerin (Nitroglycerin 2% Oint) 1 inch Q6H PRN EXT 08/18/17 13:45 09/17/17 13:44 Polyethylene (Miralax Powder Packet) 17 gm DAILY PRN PO 08/18/17 13:45 09/17/17 13:44 Amlodipine Besylate (Norvasc Tab) 2.5 mg HS PO 08/18/17 21:00 09/17/17 20:59 08/18/17 21:35 2.5 MG Aspirin (Ecotrin Tab) 81 mg HS PO 08/19/17 21:00 09/18/17 20:59 Atorvastatin Calcium (Lipitor Tab) 10 mg DAILY PO 08/19/17 09:00 09/18/17 08:59 08/19/17 08:18 10 MG Metoprolol Succinate (Toprol Xl Tab) 50 mg DAILY PO 08/19/17 09:00 09/18/17 08:59 08/19/17 08:19 50 MG Venlafaxine HCl (effeXOR EXTENDED REL CAP) 150 mg HS PO 08/18/17 21:00 09/17/17 20:59 08/18/17 21:31 150 MG Olmesartan (Benicar Tab) 10 mg QAM PO 08/19/17 09:00 09/18/17 08:59 08/19/17 08:18 10 MG Pantoprazole Sodium (Protonix Tab) 40 mg QAM PO 08/19/17 09:00 09/18/17 08:59 08/19/17 08:19 40 MG Miscellaneous (Iv Fluids Completed) 1 ea PRN PRN N/A 08/18/17 14:30 08/18/18 14:29 Morphine Sulfate (MoRPHine SULFATE INJ) 2 mg Q30M PRN IV 08/18/17 17:45 09/01/17 17:44 08/19/17 12:11 2 MG Objective Vital Signs Date Time Temp Pulse Resp B/P (MAP) Pulse Ox O2 Delivery O2 Flow Rate FiO2 08/19/17 11:08 36.2 83 16 133/76 (95) 98 Nasal Cannula 2.0 08/19/17 08:15 76 08/19/17 08:00 95 Room Air 08/19/17 07:15 36.9 45 16 121/69 (86) 95 Room Air 08/19/17 04:00 91 Nasal Cannula 2.0 08/19/17 04:00 37.0 80 18 143/78 (99) 91 Nasal Cannula 2.0 08/19/17 00:05 93 Nasal Cannula 2.0 08/18/17 23:43 37.0 78 20 130/75 (93) 93 Room Air 08/18/17 22:34 96 Nasal Cannula 2.0 08/18/17 20:28 37.2 65 16 117/71 (86) 96 Nasal Cannula 2.0 08/18/17 17:20 36.9 72 16 137/80 93 Room Air 08/18/17 15:45 36.9 72 16 137/80 (99) 93 Room Air 08/18/17 15:15 37.0 20 140/82 (101) 96 Room Air 08/18/17 14:05 36.7 75 24 134/79 97 08/18/17 14:01 72 20 123/70 96 Room Air 08/18/17 13:36 72 16 96 Physical Exam General Appearance: WD/WN, no apparent distress Eyes: sclerae normal ENT: hearing grossly normal Neck: no JVD, + pertinent finding (enlarged L jugular vein - no pulsation of vessel; carotid pulsation exaggerated on R side) Respiratory/Chest: chest non-tender (unable to reproduce CP), lungs clear, normal breath sounds, no respiratory distress, no accessory muscle use Cardiovascular: regular rate, rhythm, no gallop, no murmur Abdomen: normal bowel sounds, non tender, soft Extremities: + pertinent finding (tenderness L>R to palpation of shoulders and with movement; AROM intact without crepitus of elbows or shoulder b/l) Neurologic/Psychiatric: alert, oriented x 3 Skin: normal color, warm/dry Laboratory Results Last 24 Hours Test 08/18/17 19:24 08/19/17 03:40 08/19/17 08:36 Total Creatine Kinase 44 U/L 40 U/L Creatine Kinase MB 0.6 ng/ml 0.6 ng/ml Creatine Kinase MB Ratio 1.4 1.5 Troponin I 0.055 ng/ml 0.050 ng/ml White Blood Count 12.19 K/uL Red Blood Count 3.86 M/uL Hemoglobin 11.1 g/dL Hematocrit 35.2 % Mean Corpuscular Volume 91.2 fL Mean Corpuscular Hemoglobin 28.8 pg Mean Corpuscular Hemoglobin Concent 31.5 g/dl RDW Standard Deviation 44.4 fL RDW Coefficient of Variation 13.4 % Platelet Count 181 K/uL Mean Platelet Volume 9.9 fL Nucleated RBC Absolute Count (auto) 0.00 K/uL Nucleated Red Blood Cells % 0.0 % Sodium Level 140 mmol/L Potassium Level 3.8 mmol/L Chloride Level 106 mmol/L Carbon Dioxide Level 28 mmol/L Anion Gap 6.0 mmol/L Blood Urea Nitrogen 28 mg/dl Creatinine 1.40 mg/dl Est Creatinine Clear Calc Drug Dose 29.5 ml/min Estimated GFR () 40.7 Estimated GFR (Non- 35.1 BUN/Creatinine Ratio 19.7 Random Glucose 123 mg/dl Calcium Level 8.5 mg/dl C-Reactive Protein 7.14 mg/dl Erythrocyte Sedimentation Rate 32 mm/hr Assessment and Plan Ms. Quesada is an 82 y/o female with PMHx of Systolic CHF, HTN, HLD, Non-Ischemic Cardiomyopathy (Viral), CKD Stage III, and Depression who presents for CP. Chest Pain: Wax and Wanes - Likely Musculoskeletal - Mildly elevated and trending down troponins which appear more chronic - no telemetry events - Heart cath in May 2017 with only 30% stenosis in RCA - no further need for repeat stress testing - Cardiology following - recommendations appreciated - do not have ischemic cardiac event -- Consideration for D/C on Amlodipine given reduced EF Suspect Polymyalgia Rheumatica: - ESR 32 and CRP 7 - Consideration for giant cell vs vasculitis - mildly elevate ESR may not suggest this and favor PMR - Having CP and weakness/pain of upper extremities with generaliZed fatigue - Prednisone 20 mg daily x 1 week and taper to 10 mg daily - Consideration for outpatient rheumatology consult - will place recommendation for PCP to assist HTN/HLD/Non-Ischemic Cardiomyopathy: STABLE - ASA 81 mg daily, Benicar 10 mg daily, Metoprolol Succ 50 mg daily, and Atorvastatin 10 mg daily Chronic Systolic CHF: Without Exacerbation - Echo (May 2017) - EF 20-25% - PRN Lasix per weight gain - daily weights and I&Os CKD Stage III: STABLE Depression: Effexor 150 mg daily DVT Prophylaxis: Heparin 5000 units SC Q8H Code Status: FULL RESUSCITATION Disposition: Monitor improvement with steroids - PMR likely with improvement - D/C possible tomorrow Discharge planning: home
[2017-08-19] MEDS ORDERED: PRD20 PO (15:51)
--- NOTE | 2017-08-19 16:00 | Discharge Instructions ---
Discharge Instructions Date of Service Aug 19, 2017. Admission Reason for Admission: Chest Pain Discharge Discharge Diagnosis / Problem: Chest and shoulder pain, suspected polymylgia rheumatica Discharge Goals Goal(s): Decrease discomfort, Improve disease control Activity Recommendations Activity Limitations: resume your previous activity Lifting Limitations: none Shower/Bathe: no limitations Driving or Machine Use: no limitations . Instructions / Follow-Up Instructions / Follow-Up Medications: - PREDNISONE: 20mg a day for a week and then decrease to 10mg a day until told to change by PCP chest and shoulder pain: normal EKG, negative troponin, evaluated by cardiology , Dr. Cheema does NOT feel that this is due to your heart suspected a condition called polymyalgia rheumatica, inflammatory condition that affects shoulder, neck, chest, characterized by pain. We checked some generic inflammatory markers with CRP and ESR and both were elevated. recommend a brief trial of Prednisone 20mg daily for a week and then decrease to 10mg daily follow up with Primary care physician and ask about a referral to rheumatology to evaluate formally for this diagnosis FOLLOW UP - Raquel Zaragoza in one week, call for follow up Current Hospital Diet Patient's current hospital diet: AHA Diet (Heart Healthy), Low Sodium Diet (2gm Na) Discharge Diet Recommended Diet: AHA Diet (Heart Healthy) Pending Studies Studies pending at discharge: no Laboratory Results Lipid Panel Test 06/03/17 06:41 Range/Units Triglycerides Level 109 0-150 mg/dl Cholesterol Level 129 0-200 mg/dl HDL Cholesterol 47 mg/dl Cholesterol/HDL Ratio 2.7 LDL Cholesterol, Calculated 60 mg/dl Medical Emergencies . Who to Call and When: Medical Emergencies: If at any time you feel your situation is an emergency, please call 911 immediately. . Non-Emergent Contact Non-Emergency issues call your: Primary Care Provider Call Non-Emergent contact if: you have a fever, your pain is worsening, you have any medication questions . . "Provider Documentation" section prepared by Adolph Higgins. . VTE Core Measure Inpt VTE Proph given/why not?: Unfractionated heparin SQ, T.E.D. Stockings, SCD 's
[2017-08-19] MEDS ORDERED: TRAM-10 PO (16:23)
[2017-08-19] MEDS ORDERED: ASPIRIN 81 MG ECTAB PO SCH (21:00)
--- NOTE | 2017-08-20 07:02 | Discharge Summary ---
Discharge Summary Date of Service Aug 20, 2017. Discharge Summary Admission Date: Aug 18, 2017 at 13:46 Discharge Date: Aug 19, 2017 Discharge Disposition: Home Principal Diagnosis: Chest Pain - Possible Polymyalgia Rheumatica Problems/Secondary Diagnoses: 1. 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 Systolic Congestive Heart Failure 3. HTN 4. HLD 5. CKD Stage III 6. Depression Procedures: CHEST ONE VIEW PORTABLE FINDINGS: Mild enlargement of the cardiac silhouette, unchanged. Minimal reticular opacities at the left lung base, not significantly changed. No new focal infiltrate. No pleural effusion or pneumothorax. Degenerative changes of the left glenohumeral joint. Degenerative changes of the spine. Upper abdomen normal. IMPRESSION: 1. Minimal left basilar opacity, possibly atelectasis or scarring, unchanged. No new focal infiltrate. 2. Mild cardiomegaly. 3. No convincing evidence of acute cardiopulmonary disease. Consultations: 1. Cardiology Medication Reconciliation New Medications: Tramadol (Ultram) 50 Mg Tab 1 TAB PO TID PRN for Pain for 10 Days, #30 TAB Prednisone (Prednisone) 20 Mg Tab 20 MG PO DAILY, #20 TAB 0 Refills starting 08/20, take 20mg daily for one week, then decrease to 10mg (1/2 tablet) on 08/27 Continued Medications: Amlodipine Besylate (Norvasc) 2.5 Mg Tab 2.5 MG PO HS Aspirin (Aspirin Ec) 81 Mg Tab 81 MG PO HS Atorvastatin (Atorvastatin Calcium) 10 Mg Tab 10 MG PO DAILY, #90 Furosemide (Lasix) 20 Mg Tab 1 TAB PO DAILY PRN for weight gain over 3 pounds for 90 Days, #90 TAB 1 Refill only takes if weight goes over 3 pounds over night Metoprolol Succinate (Metoprolol Succinate ER) 50 Mg Tabcr 50 MG PO DAILY Olmesartan Medoxomil (Olmesartan Medoxomil) 5 Mg Tab 10 MG PO DAILY Venlafaxine Hcl (Effexor Extended Rel) 150 Mg Cap 150 MG PO HS Discharge Exam REVIEW OF SYSTEMS: Constitutional: No fever, No chills Respiratory: No cough, No shortness of breath Cardiovascular: + chest pain Abdomen: No pain, No nausea, No vomiting, No diarrhea, No constipation Musculoskeletal: + joint pain (L shoulder), No calf pain Female : No dysuria Heme: No abnormal bleeding/bruising PHYSICAL EXAMINATION: General Appearance: WD/WN, no apparent distress Eyes: sclerae normal ENT: hearing grossly normal Neck: no JVD, + pertinent finding (enlarged L jugular vein - no pulsation of vessel; carotid pulsation exaggerated on R side) Respiratory/Chest: chest non-tender (unable to reproduce CP), lungs clear, normal breath sounds, no respiratory distress, no accessory muscle use Cardiovascular: regular rate, rhythm, no gallop, no murmur Abdomen: normal bowel sounds, non tender, soft Extremities: + pertinent finding (tenderness L>R to palpation of shoulders and with movement; AROM intact without crepitus of elbows or shoulder b/l) Neurologic/Psychiatric: alert, oriented x 3 Skin: normal color, warm/dry Hospital Course ADMISSION: This is an 82 y/o female with a history of systolic CHF, HTN, HLD, non-ischemic cardiomyopathy, CKD stage III and depression who presented to the ED on 08/18 with chest pain. The patient states she developed a 6/10 pressure across her chest around 0200 this morning. She states the pain is worse with certain movements, such when she rolls onto her side. She noticed associated shortness of breath but denied any dizziness, radiation of the pain, numbness/ tingling, or nausea. She complains of increased weakness and fatigue today. She also complains of dyspnea on exertion and palpitations, but state that those symptoms are chronic and are not any worse today than usual. The patient had a cardiac cath in May 2017 which did not showed non-obstructive CAD. The patient denies fevers, chills, sweats, claudication, cough, wheezing, nausea, vomiting, abdominal pain, dysuria, hematuria, urinary retention, paralysis, motor weakness, numbness and tingling. HOSPITAL COURSE: Ms. Quesada was admitted for chest pain that appears more musculoskeletal and possible polymyalgia rheumatica. She underwent cardiac catheterization in May 2017 that was largely unremarkable except for a 30% stenosis in RCA. Chest pain continued to be intermittent without EKG findings and troponins trending down which appear to have been chronic over the past few months. Pain initially in lower chest expanding across the chest but with further chest pain it was located in upper L into shoulder. Patient expressed bilateral shoulder tenderness to palpation with L > R. She also reports generalized fatigue but symptoms seem to not drastically affect her legs. ESR was 32 and CRP 7. She has chronic swelling of what appears to be the jugular vein on the L neck that fluctuates. She was started on a trial of Prednisone with 20 mg x 1 week and to taper to 10 mg weekly until follow-up with PCP. ESR not significantly elevated to suggest vasculitis but rheumatology consultation may be of benefit. Total Time Spent: Greater than 30 minutes This includes examination of the patient, discharge planning, medication reconciliation, and communication with other providers. Discharge Instructions Please refer to the electronic Patient Visit Report (Discharge Instructions) for additional information. Additional Copies To Raquel Zaragoza CRNP
== END 2017-08-19 18:33 | disposition home or self-care (01) ==
LOC: C.EDB 11:02 → C.MED 13:46 → ENRESERV 13:59 → CANRESERV 13:59 → ENRESERV 14:02
PROVIDERS: ADMIT Hospitalist; ATTEND Internal Medicine
DX: R07.9 Chest pain, unspecified (principal); I34.0 Nonrheumatic mitral (valve) insufficiency; I42.9 Cardiomyopathy, unspecified; I13.0 Hypertensive heart and chronic kidney disease with heart failure and stage 1 through stage 4 chronic kidney disease, or unspecified chronic kidney disease; N18.3 Chronic kidney disease, stage 3 (moderate); I50.22 Chronic systolic (congestive) heart failure; E78.5 Hyperlipidemia, unspecified; D64.9 Anemia, unspecified; F31.9 Bipolar disorder, unspecified; Z86.39 Personal history of other endocrine, nutritional and metabolic disease; Z79.82 Long term (current) use of aspirin; Z79.899 Other long term (current) drug therapy; Z96.643 Presence of artificial hip joint, bilateral

== ENCOUNTER → 2017-11-15 | Outpatient (CLI) | payer BC ==
[~2017-11-15] MED LIST changes: -BNC5 PO; +FURO-85 PO; -LSX20 PO; +OLME5TAB3 PO; +PRD20 PO; +TPRSR/50 PO; -TPRSR25 PO
--- NOTE | 2017-11-15 15:09 | MAMMOGRAPHY REPORT ---
BILATERAL DIGITAL DIAGNOSTIC MAMMOGRAM TOMOSYNTHESIS WITH CAD AND TARGETED BILATERAL ULTRASOUND: 10/29 CLINICAL HISTORY: 82-year-old woman presents for annual bilateral mammography and also close follow-u p of a benign-appearing circumscribed mass in the inferior posterior right breast on the MLO view. 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 Today she reports intermittent stabbing/sharp pain in the left breast 11:00 to 12:00 axis. Also reports mild CHF. TECHNIQUE: Bilateral breast tomosynthesis in addition to standard 2D mammography was performed. Curre nt study was also evaluated with a Computer Aided Detection (CAD) system. COMPARISON: Comparison is made to exams dated: 05/03/2017 mammogram, 05/03/2017 ultrasound, 11/06/2016 ul trasound biopsy, 11/06/2016 mammogram, and 10/06/2016 mammogram - [facility]. BREAST COMPOSITION: The tissue of both breasts is heterogeneously dense, which may obscure small mas ses. FINDINGS: There is mild diffuse skin thickening and trabecular edema of the breasts that is increasin gly conspicuous comparing to the more remote 2009 mammograms and can be seen with CHF, as this is con cordant with the patient's clinical history. There are scattered benign round and rim calcifications in both breasts. A square-shaped pain marker overlies the 12:00 to 1:00 left breast denoting an are a of intermittent stabbing pain pointed out by the patient. No obvious new mass, focal area of archi tectural distortion or new suspicious calcifications are seen in the left breast. A stable ribbon-sh aped biopsy marker clip is seen in the 12:00 middle one third of the left breast denoting the biopsy- proven fibroadenoma. There are benign rim calcifications in the right breast. No new suspicious masses, asymmetries, area of architectural distortion or calcifications are identified in the right breast. Again noted is an oval, circumscribed 3.7 x 3.1 mm mass in the posterior slightly inferior right breast best seen on M LO tomosynthesis slice 24/40. This has not significantly changed in size or appearance dating back t o the 10/06/2016 mammogram and therefore most likely benign with one year of stability. However furt her evaluation with ultrasound was performed in the inferior right breast also with particular attent ion to other benign-appearing subcentimeter masses seen on prior targeted ultrasound. Targeted ultrasound was performed in the area of intermittent mastalgia in the left breast 11:00, 12: 00 and 1:00 axes. Sonographically normal dense tissue and a few scattered cysts are identified, the largest anechoic cyst is seen in the 11:00 breast measuring 4.3 mm. No suspicious solid mass is seen . Ultrasound was performed in the right breast and in the 3:00 axis, 2-3 cm from the nipple, a round an echoic and isoechoic solid versus cystic mass is again identified measuring 3.2 x 2.4 x 2.9 mm. This has not significantly changed in size or appearance comparing to the 10/21/2016 ultrasound at which time it measured 2.0 x 2.1 x 2.7 mm, given slight differences in measuring technique. Another 12 mon th follow-up is recommended to ensure longer stability. In the 3:00 right breast, 1-2 cm from the ni pple, there is an oval parallel circumscribed hypoechoic to anechoic solid versus cystic mass measuri ng 4.3 x 2.2 x 3.8 mm. In the 3:30 right breast, 4 cm from the nipple there is a nearly anechoic cys tic appearing mass measuring 3.1 x 1.6 mm. Mild duct ectasia in the retroareolar right breast. In t he 4:00 periareolar right breast there is an oval parallel hypoechoic solid versus cystic mass measur ing 3.5 x 1.9 x 2.9 mm. In the 8:00 periareolar right breast there is a lobulated and circumscribed hypoechoic solid versus cystic mass measuring 4.2 x 2.3 x 4.6 mm. This has not significantly changed comparing to the prior right breast ultrasound dated 05/03/2017, at which time it measured 2.7 x 2.9 x 4.1 mm, given slight differences in measuring technique. IMPRESSION: ACR-BI-RADS CATEGORY 3: PROBABLY BENIGN, TARGETED ULTRASOUND ACR-BI-RADS CATEGORY 3: PRO BABLY BENIGN 1. There is a stable benign-appearing circumscribed 3.1 x 3.7 mm mammographic mass in the far trust operations assistant ior slightly inferior right breast on the MLO view that is unchanged for one year mammographically. Numerous scattered benign-appearing subcentimeter hypoechoic and anechoic masses are seen throughout the right breast on ultrasound, particularly in the 3:00, 4:00 and 8:00 axes that most likely represe nt benign complicated cysts, focal duct ectasia and benign solid masses such as fibroadenomas. Howev er, another 12 month follow-up right tomosynthesis mammogram and repeat targeted ultrasound throughou t the right breast is recommended to ensure at least 2 years of stability to confirm benignity. 2. Stable mammographic appearance of the left breast including postbiopsy changes in the 12:00 axis. No suspicious mammographic or sonographic finding to explain the intermittent stabbing pain describ ed by the patient. Therefore, clinical follow-up is recommended. 3. Overall mild diffuse trabecular edema and skin thickening of the breasts, likely related to the p atient's CHF. These results and recommendations were discussed with the patient at the time of the exam. She tenta tively scheduled her 12 month follow-up diagnostic appointment prior to leaving our department. Approximately 10% of breast cancers are not detected with mammography. A negative mammographic report should not delay biopsy if a clinically suggestive mass is present. Ebonie Peguero M.D. ay/:11/15/2017 14:43:47 Outside Production Inspector: Yuliya Saleh, [facility] letter sent: Follow Up Recommended 3 BI-RADS Code: ACR-BI-RADS Category 3: Probably Benign Ultrasound BI-RADS: ACR-BI-RADS Category 3: Pr obably Benign
== END | disposition home or self-care (01) ==
LOC: C.MAMM 09:06
PROVIDERS: ATTEND Internal Medicine
DX: N63.0 Unspecified lump in unspecified breast (principal)

== ENCOUNTER 2018-01-06 09:22 | Inpatient (IN) | payer BC, OTHER ==
[~2018-01-06] VITALS: Ht 167.6 cm; Wt 60.5 kg
[2018-01-06] MEDS ORDERED: ASPIRIN 81 MG CHEW PO STA (09:38)
--- NOTE | 2018-01-06 10:15 | DIAGNOSTIC IMAGING REPORT ---
CHEST 2 VIEWS ROUTINE HISTORY: 82 years-old Female sob chf acute shortness of breath and fatigue COMPARISON: Chest radiograph 08/18/2017 TECHNIQUE: AP and lateral views of the chest FINDINGS: Cardiac silhouette is again moderately enlarged. Atherosclerosis of the aorta. No pneumothorax. Trace left pleural effusion is noted with pulmonary vascular congestion and mild interstitial coarsening. Patchy left basilar opacities. Patient is mildly rotated to the left. Degenerative changes are seen within the shoulders and spine. IMPRESSION: 1. Cardiomegaly with mild pulmonary edema. 2. Trace left pleural effusion with minimal left basilar consolidation suggesting atelectasis or pneumonia. The above report was generated using voice recognition software. It may contain grammatical, syntax or spelling errors. Electronically signed by: Canelo Lam M.D. 01/06/2018 10:14 AM Dictated Date/Time: 01/06/2018 10:12 AM
[2018-01-06] MEDS ORDERED: OLME1TAB11 PO (10:16)
[2018-01-06 10:46] LABS: BASO % 0.3 %; BASO ABS # 0.02 K/uL (0-0.2); EOS % 0.3 %; EOS ABS # 0.02 K/uL (0-0.5); HEMATOCRIT 41.8 % (37-47); HEMOGLOBIN 13.5 g/dL (12.0-16.0); IG# 0.03 K/uL (0.00-0.02); LYMPH % 9.4 %; LYMPH ABS # 0.65 K/uL (1.2-3.4); MEAN CELL VOLUME 95.2 fL (80-100); MEAN CORPUSCULAR HEMOGLOBIN 30.8 pg (25-34); MEAN CORPUSCULAR HGB CONC 32.3 g/dl (32-36); MEAN PLATELET VOLUME 10.6 fL (7.4-10.4); MONO % 7.7 %; MONO ABS # 0.53 K/uL (0.11-0.59); NEUT % 81.9 %; NEUT ABS # 5.67 K/uL (1.4-6.5); PLATELET COUNT 200 K/uL (130-400); RED CELL DISTRIBUTION WIDTH SD 51.4 fL (36.4-46.3); WHITE BLOOD COUNT 6.92 K/uL (4.8-10.8)
[2018-01-06 11:04] LABS: CREATININE 1.92 mg/dl (0.60-1.20); POTASSIUM 4.2 mmol/L (3.5-5.1)
[2018-01-06] MEDS ORDERED: FUROSEMIDE INJ 40 MG in SYRINGE 0 ML IV ONE (11:30)
[2018-01-06] MEDS ORDERED: FUROSEMIDE 40 MG/4 ML VIAL ONE (11:31)
[2018-01-06 11:38] LABS: INFLUENZA B ANTIGEN Neg for Influ B (NEG)
--- NOTE | 2018-01-06 12:13 | History and Physical ---
History & Physical Date & Time of Service: Jan 06, 2018 at 12:06 Chief Complaint: Extreme Fatigue Primary Care Physician: Raquel Zaragoza CRNP History of Present Illness Source: patient 82 y/o F Hx combined CHF, CKD III, CAD, HTN, HPL. Pt presents with progressive fatigue and exertional dyspnea. She states that she can barely walk across a room due to her symptoms. She denies weight gain or lower extremity edema. She denies CP, a productive cough, N/V or fevers. Initial labs reveal a marginally elevated trop and worsening renal function. CXR is consistent with pulmonary edema. EKG reveals lat inversions which were not present on previous EKGs. The pt takes Lasix PRN for weight gain and does weigh herself daily. She has not recently needed any Lasix. 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%, grade 1 diastolic dysfunction 2) Bipolar disorder 3) Gout 4) CAD - stress test 01/15 consistent with RCA disease 5) Viral myocarditis 6) HTN 7) HPL 8) CKD III 9) Mitral regurgitation Surgical: 1) Hysterectomy 2) BL THR 3) Appendectomy 4) L femoral ORIF Family History Diabetes mellitus FH: CHF (congestive heart failure) FATHER MOTHER BROTHER Hypertension Social History Quit smoking 40 years prior Smoking Status: Former Smoker Drug Use: none Marital Status: Housing status: lives with family Occupational Status: retired Multi-Drug Resistant Organisms History of MDRO: No Allergies Coded Allergies: Lobster (Verified Adverse Reaction, Intermediate, GI SYMPTOMS, 01/22/17) per pt report. Home Medications Scheduled Aspirin (Aspirin Ec), 81 MG PO HS Atorvastatin (Lipitor), 10 MG PO DAILY Metoprolol Succinate (Metoprolol Succinate ER), 50 MG PO DAILY Olmesartan Medoxomil (Benicar), 20 MG PO DAILY Venlafaxine Hcl (Effexor Extended Rel), 150 MG PO HS Review of Systems Constitutional: + weakness, + fatigue, No fever, No chills, No sweats Eyes: No worsening of vision ENT: No hearing loss, No unusual epistaxis, No nasal symptoms Respiratory: + shortness of breath, + dyspnea on exertion, No cough, No sputum , No wheezing Cardiovascular: No chest pain, No orthopnea, No PND Abdomen: No pain, No vomiting Musculoskeletal: No joint pain Genitourinary - Female: No dysuria, No urinary frequency, No urinary urgency Neurologic: + weakness, No memory loss, No paralysis Psychiatric: No depression symptoms Endocrine: + fatigue Hematologic / Lymphatic: No abnormal bleeding/bruising Integumentary: No rash Allergic / Immunologic: No environmental allergies Physical Exam Vital Signs Date Time Temp Pulse Resp B/P (MAP) Pulse Ox O2 Delivery O2 Flow Rate FiO2 01/06/18 11:36 77 18 130/93 95 Room Air 01/06/18 10:16 97 Room Air 01/06/18 09:41 78 01/06/18 09:24 36.3 98 18 142/83 96 Room Air General Appearance: WD/WN, no apparent distress Head: normocephalic Eyes: normal inspection, EOMI ENT: normal ENT inspection, pharynx normal Neck: supple, + JVD Respiratory/Chest: chest non-tender, + pertinent finding (No air entry at L base - crackles on R - no wheezing) Cardiovascular: regular rate, rhythm, no edema, no gallop, + pertinent finding (Loud pansystolic murmur is present) Abdomen/GI: normal bowel sounds, non tender, soft Back: normal inspection, no CVA tenderness Extremities/Musculoskelatal: normal inspection, no calf tenderness, normal capillary refill Neurologic/Psych: trial manager II-XII nml as tested, no motor/sensory deficits, alert Skin: normal color Diagnostics Laboratory Results Results Past 24 Hours Test 01/06/18 10:20 01/06/18 10:31 Range/Units Influenza Type A Antigen Neg for Influ A NEG Influenza Type B Antigen Neg for Influ B NEG White Blood Count 6.92 4.8-10.8 K/uL Red Blood Count 4.39 4.2-5.4 M/uL Hemoglobin 13.5 12.0-16.0 g/dL Hematocrit 41.8 37-47 % Mean Corpuscular Volume 95.2 80-100 fL Mean Corpuscular Hemoglobin 30.8 25-34 pg Mean Corpuscular Hemoglobin Concent 32.3 32-36 g/dl Platelet Count 200 130-400 K/uL Mean Platelet Volume 10.6 7.4-10.4 fL Neutrophils (%) (Auto) 81.9 % Lymphocytes (%) (Auto) 9.4 % Monocytes (%) (Auto) 7.7 % Eosinophils (%) (Auto) 0.3 % Basophils (%) (Auto) 0.3 % Neutrophils # (Auto) 5.67 1.4-6.5 K/uL Lymphocytes # (Auto) 0.65 1.2-3.4 K/uL Monocytes # (Auto) 0.53 0.11-0.59 K/uL Eosinophils # (Auto) 0.02 0-0.5 K/uL Basophils # (Auto) 0.02 0-0.2 K/uL RDW Standard Deviation 51.4 36.4-46.3 fL RDW Coefficient of Variation 15.0 11.5-14.5 % Immature Granulocyte % (Auto) 0.4 % Immature Granulocyte # (Auto) 0.03 0.00-0.02 K/uL Sodium Level 143 136-145 mmol/L Potassium Level 4.2 3.5-5.1 mmol/L Chloride Level 110 98-107 mmol/L Carbon Dioxide Level 23 21-32 mmol/L Anion Gap 10.0 3-11 mmol/L Blood Urea Nitrogen 36 7-18 mg/dl Creatinine 1.92 0.60-1.20 mg/dl Est Creatinine Clear Calc Drug Dose 21.5 ml/min Estimated GFR () 27.8 Estimated GFR (Non- 24.0 BUN/Creatinine Ratio 18.7 10-20 Random Glucose 117 70-99 mg/dl Calcium Level 9.0 8.5-10.1 mg/dl Magnesium Level 2.1 1.8-2.4 mg/dl Troponin I 0.116 0-0.045 ng/ml Pro-B-Type Natriuretic Peptide 32750 0-1800 pg/ml Diagnostic Radiology CXR: 1. Cardiomegaly with mild pulmonary edema. 2. Trace left pleural effusion with minimal left basilar consolidation suggesting atelectasis or pneumonia EKG Sinus, prolonged QT, LVH, lateral inversions which are new Impression Assessment and Plan 82 y/o F Hx combined CHF, CKD III, CAD, HTN, HPL. Pt presents with progressive fatigue and exertional dyspnea. She states that she can barely walk across a room due to her symptoms. She denies weight gain or lower extremity edema. She denies CP, a productive cough, N/V or fevers. Initial labs reveal a marginally elevated trop and worsening renal function. CXR is consistent with pulmonary edema. EKG reveals lat inversions which were not present on previous EKGs. 1) Progressive fatigue and exertional dyspnea. Clinical exam, labs and imaging are consistent with acute on chronic CHF. Her troponin is likely elevated due to CHF, however, we cannot rule out an acute MT as a precipitating factor. The pt is assigned to telemetry. She will be treated with IV Lasix - I/O, daily weights, 02 protocol. 2) Elvated trop we will request an echo and cardiology consult and trend her enzymes. She has been placed on full dose anticoagulation, ASA and her statin dose is increased. 3) CKD - VITOR - creatinine is elevated as compared to baseline (1.5 > 1.9). We would expect this to improve with treatment of CHF - BMP will be trended AM. 4) HTN - cont Metoprolol. Full code - full dose Lovenox Total time for this admit including review of labs, meds, imaging, records, EKG - discussion with pt and ER attending - 40 min Level of Care Telemetry Resuscitation Status FULL RESUSCITATION VTE Prophylaxis Given or contraindicated: Enoxaparin (Lovenox)SQ
[2018-01-06] MEDS ORDERED: ONDANSETRON INJ 2 MG/ML 2 ML VIAL IV PRN (12:15)
[2018-01-06] MEDS ORDERED: NITROGLYCERIN 2% OINTMENT 30GM TUBE EXT SCH (12:15)
[2018-01-06] MEDS ORDERED: ACETAMINOPHEN 325 MG TAB PO PRN (12:15)
[2018-01-06] MEDS ORDERED: ALUMINUM/MAGNESIUM/SIMETH (MAALOX MAX) 30 ML UDC PO PRN (12:15)
[2018-01-06] MEDS ORDERED: MAGNESIUM HYDROXIDE SUSP 30 ML UDC PO PRN (12:15)
[2018-01-06] MEDS ORDERED: MoRPHine SULFATE 2 MG/ML CARP IV PRN (12:15)
[2018-01-06] MEDS ORDERED: NITROGLYCERIN 0.4 MG SL PER TAB CHARGE SL PRN (12:15)
[2018-01-06] MEDS ORDERED: POLYETHYLENE (MIRALAX) 17 GM PACK PO PRN (12:15)
--- NOTE | 2018-01-06 12:24 | EMERGENCY ROOM VISIT NOTE ---
History Report prepared by Kristian: Wayne Bess Under the Supervision of: Dr. William Valdez M.D. First contact with patient: 09:34 Chief Complaint: ILLNESS Stated Complaint: EXTREME FATIGUE History of Present Illness The patient is a 82 year old female who presents to the Emergency Room with complaints of worsening generalized fatigue beginning a few weeks ago. She also complains of SOB, and chest "heaviness and tightness". She has a history of CHF and feels that it may be responsible for her symptoms. The patient states that her symptoms are improved if she rests with her head elevated. Her symptoms are worsened with laying flat. She states that she had a cough last week as well, but did not notice any blood in her cough. The patient denies fevers, black or bloody stools, or urinary symptoms. She notes that she has felt like she was going to pass out several times after exerting herself, but has not actually had any syncopal episodes. She denies recent travel, hormone supplement usage, history of blood clots, or history of surgeries. The patient took her medications last night as normal. Source of History: patient Onset: A few weeks ago Position: other (generalized) Quality: other (fatigue) Timing: worsening Modifying Factors (Worsening): other (laying flat) Modifying Factors (Relieving): rest (with head elevated) Associated Symptoms: + cough (last week), + chest pain ("heaviness and tightness"), + SOB, No fevers, No melena, No hematochezia, No urinary symptoms Review of Systems See HPI for pertinent positives and negatives. A total of ten systems were reviewed and were otherwise negative. Past Medical & Surgical Medical Problems: (1) VITOR (acute kidney injury) (2) Anemia (3) Bipolar disorder (4) Chest pain (5) CHF (congestive heart failure) (6) CKD (chronic kidney disease) (7) Diastolic dysfunction (8) Dyspnea (9) H/O viral myocarditis (10) History of gout (11) Hyperlipidemia (12) Hypertension (13) Mitral regurgitation (14) Cesilia-prosthetic fracture of femur following total hip arthroplasty Surgical Problems: (1) History of hysterectomy (2) History of left hip replacement (3) History of right hip replacement (4) S/P appendectomy (5) S/P ORIF (open reduction internal fixation) fracture (6) Status post left hip replacement Family History Diabetes mellitus FH: CHF (congestive heart failure) FATHER MOTHER BROTHER Hypertension Social History Smoking Status: Never Smoker Drug Use: none Marital Status: Housing Status: assisted living Occupation Status: retired Current/Historical Medications Scheduled Aspirin (Aspirin Ec), 81 MG PO HS Atorvastatin (Lipitor), 10 MG PO DAILY Metoprolol Succinate (Metoprolol Succinate ER), 50 MG PO DAILY Olmesartan Medoxomil (Benicar), 20 MG PO DAILY Venlafaxine Hcl (Effexor Extended Rel), 150 MG PO HS Allergies Coded Allergies: Lobster (Verified Adverse Reaction, Intermediate, GI SYMPTOMS, 01/22/17) per pt report. Physical Exam Vital Signs Date Time Temp Pulse Resp B/P (MAP) Pulse Ox O2 Delivery O2 Flow Rate FiO2 01/06/18 11:36 77 18 130/93 95 Room Air 01/06/18 10:16 97 Room Air 01/06/18 09:41 78 01/06/18 09:24 36.3 98 18 142/83 96 Room Air Physical Exam GENERAL: Awake, alert, well-appearing, in no distress HENT: Normocephalic, Atraumatic. no hemotympanum bilaterally, youngblood sign negative bilaterally. Oropharynx unremarkable. EYES: Normal conjunctiva. Sclera non-icteric. PERRL bilaterally. EOMI bilaterally. NECK: Supple. No nuchal rigidity. FROM. No C-spine tenderness. JVD noted bilaterally. RESPIRATORY: Clear to auscultation. No wheezes, rhonchi or rales bilaterally. CARDIAC: Regular rate, normal rhythm. Systolic murmur 2/6. Extremities warm and well perfused. Equal palpable radial pulses to the bilateral upper extremities. Equal palpable DP pulses to the bilateral lower extremities. ABDOMEN: Soft, non-distended. No tenderness to palpation. No rebound or guarding. No masses. Rovsig Negative. RECTAL: Deferred. MUSCULOSKELETAL: Chest examination reveals no tenderness. The back is symmetrical on inspection without obvious abnormality. There is no CVA tenderness to palpation. No joint edema. LOWER EXTREMITIES: 1+ pitting edema to the bilateral lower extremities. Calves are equal size bilaterally and non-tender. No discoloration. NEURO: Normal sensorium. No sensory or motor deficits noted. No pronator drift. No facial droop. No dysarthria. SKIN: No rash or jaundice noted. Medical Decision & Procedures ER Provider Diagnostic Interpretation: Radiology results as stated below per my review and radiologist interpretation: CHEST 2 VIEWS ROUTINE FINDINGS: Cardiac silhouette is again moderately enlarged. Atherosclerosis of the aorta. No pneumothorax. Trace left pleural effusion is noted with pulmonary vascular congestion and mild interstitial coarsening. Patchy left basilar opacities. Patient is mildly rotated to the left. Degenerative changes are seen within the shoulders and spine. IMPRESSION: 1. Cardiomegaly with mild pulmonary edema. 2. Trace left pleural effusion with minimal left basilar consolidation suggesting atelectasis or pneumonia. The above report was generated using voice recognition software. It may contain grammatical, syntax or spelling errors. Electronically signed by: Canelo Lam M.D. 01/06/2018 10:14 AM Laboratory Results 01/06/18 10:31 Red Blood Count 4.39, Mean Corpuscular Volume 95.2, Mean Corpuscular Hemoglobin 30.8, Mean Corpuscular Hemoglobin Concent 32.3, Mean Platelet Volume 10.6, Neutrophils (%) (Auto) 81.9, Lymphocytes (%) (Auto) 9.4, Monocytes (%) (Auto) 7.7, Eosinophils (%) (Auto) 0.3, Basophils (%) (Auto) 0.3, Neutrophils # (Auto) 5.67, Lymphocytes # (Auto) 0.65, Monocytes # (Auto) 0.53, Eosinophils # (Auto) 0.02, Basophils # (Auto) 0.02 01/06/18 10:31 Test 01/06/18 10:20 01/06/18 10:31 Influenza Type A Antigen Neg for Influ A (NEG) Influenza Type B Antigen Neg for Influ B (NEG) White Blood Count 6.92 K/uL (4.8-10.8) Red Blood Count 4.39 M/uL (4.2-5.4) Hemoglobin 13.5 g/dL (12.0-16.0) Hematocrit 41.8 % (37-47) Mean Corpuscular Volume 95.2 fL (80-100) Mean Corpuscular Hemoglobin 30.8 pg (25-34) Mean Corpuscular Hemoglobin Concent 32.3 g/dl (32-36) Platelet Count 200 K/uL (130-400) Mean Platelet Volume 10.6 fL (7.4-10.4) Neutrophils (%) (Auto) 81.9 % Lymphocytes (%) (Auto) 9.4 % Monocytes (%) (Auto) 7.7 % Eosinophils (%) (Auto) 0.3 % Basophils (%) (Auto) 0.3 % Neutrophils # (Auto) 5.67 K/uL (1.4-6.5) Lymphocytes # (Auto) 0.65 K/uL (1.2-3.4) Monocytes # (Auto) 0.53 K/uL (0.11-0.59) Eosinophils # (Auto) 0.02 K/uL (0-0.5) Basophils # (Auto) 0.02 K/uL (0-0.2) RDW Standard Deviation 51.4 fL (36.4-46.3) RDW Coefficient of Variation 15.0 % (11.5-14.5) Immature Granulocyte % (Auto) 0.4 % Immature Granulocyte # (Auto) 0.03 K/uL (0.00-0.02) Anion Gap 10.0 mmol/L (3-11) Est Creatinine Clear Calc Drug Dose 21.5 ml/min Estimated GFR () 27.8 Estimated GFR (Non- 24.0 BUN/Creatinine Ratio 18.7 (10-20) Calcium Level 9.0 mg/dl (8.5-10.1) Magnesium Level 2.1 mg/dl (1.8-2.4) Pro-B-Type Natriuretic Peptide 08107 pg/ml (0-1800) Thyroid Stimulating Hormone (TSH) 1.670 uIu/ml (0.300-4.500) Laboratory results reviewed by me Medications Administered Medications (Trade) Dose Ordered Sig/Chinedu Route Start Time Stop Time Status Last Admin Dose Admin Aspirin (Aspirin Chew) 324 mg NOW STAT PO 01/06/18 09:38 01/06/18 09:41 DC 01/06/18 10:26 324 MG Furosemide (Lasix Inj) 40 mg STK-MED ONCE .ROUTE 01/06/18 11:31 01/06/18 11:32 DC 01/06/18 11:38 40 MG Nitroglycerin (Nitroglycerin 2% Oint) 1 inch TODAY@1215 EXT 01/06/18 12:15 01/06/18 23:59 01/06/18 13:58 1 INCH ECG Indication: SOB/dyspnea Rate (beats per minute): 82 Rhythm: sinus rhythm Findings: PVC, T-wave inversion (Lead 1, AVL, V5 and V6. ), prolonged QT (495) , other (ND and QRS within normal limits. No ST elevation or ST depressoin. LVH. ) Comparison ECG Date: 08/19/2017 Change: T-wave inversions are new. ED Course 0936: The patient was evaluated in room A10. A complete history and physical exam was performed. 0938: Ordered Aspirin Chew 324 mg PO. 1130: Ordered Furosemide 40 mg/Syringe 4 mL @ 4 mL/min IV. 1140: The patient's vital signs are stable. She has an elevated Troponin and proBNP. Elevated troponin is most likely due to CHF given HPI and physical exam findings. Discussed case with cardiology who agrees, and also agrees with no heparin at this time. Patient was given Lasix in the ED. Patient to be admitted by hospitalist. Hospitalist will follow up on serial Troponin's. Medical Decision The patient's vital signs are stable. She has an elevated Troponin and proBNP. Elevated troponin is most likely due to CHF given HPI and physical exam findings. Discussed case with cardiology who agrees, and also agrees with no heparin at this time. Patient was given Lasix in the ED. Patient to be admitted by hospitalist. Hospitalist will follow up on serial Troponin's. Medication Reconcilliation Current Medication List: was personally reviewed by me Blood Pressure Screening Patient's blood pressure: Elevated blood pressure Blood pressure disposition: Elevated BP felt to be situational Consults Time Called: [phone] Consulting Physician: Dr. Jaquez - Cardiology Returned Call: [phone] Discussed the patient's case. Dr. Laguerre agrees with admission as an inpatient by the hospitalist service. He recommends the patient be diuresed. He feels that the patient's Troponin is likely elevated due to CHF as she has no symptoms at rest, and her symptoms are more related to breathing. Additional Consults: Time Called: 1140 Consulted Physician: Dr. [place] [facility] [place]ed Call: [phone] Additional Comments: The patient will be evaluated for further treatment and disposition. Impression Primary Impression: CHF exacerbation Scribe Attestation The scribe's documentation has been prepared under my direction and personally reviewed by me in its entirety. I confirm that the note above accurately reflects all work, treatment, procedures, and medical decision making performed by me. The chart was completed utilizing [employer] Speech voice recognition software. Grammatical errors, random word insertions, pronoun errors, and incomplete sentences are an occasional consequence of this system due to software limitations, ambient noise, and hardware issues. Any formal questions or concerns about the content, text, or information contained within the body of this dictation should be directly addressed to the physician for clarification. Departure Information Dispostion Being Evaluated By Hospitalist Referrals Raquel Zaragoza CRNP (PCP) Patient Instructions My [facility]
[2018-01-06] MEDS ORDERED: POTASSIUM CHLORIDE 10 MEQ TABCR PO SCH (12:37)
[2018-01-06] MEDS ORDERED: ENOXAPARIN 1 MG/KG SQ SCH (12:45)
[2018-01-06] MEDS ORDERED: IV FLUIDS COMPLETED PRN (13:00)
[2018-01-06] MEDS ORDERED: ENOXAPARIN 60 MG/0.6 ML SYR SQ SCH (13:15)
[2018-01-06 13:39] LABS: INR 1.6 (0.9-1.1); PTT PATIENT 27.6 SECONDS (21.0-31.0)
--- NOTE | 2018-01-06 16:57 | ECHOCARDIOGRAM REPORT ---
*NOTICE TO RECEIVING [employer] This information is strictly Confidential and protected under [place] law. [place] law prohibits you from making any further disclosure of this information unless further disclosure is expressly permitted by the written consent of the person to whom it pertains or is authorized by law. A general authorization for the release of medical or other information is not sufficient for this purpose. Hospital accepts no responsibility if the information is made available to any other person, INCLUDING THE PATIENT. Interpretation Summary * Name: MUSA PARK Study Date: 01/06/2018 02:40 PM BP: 130/93 mmHg * Patient Location: [facility] HR: 77 * : 1935 (M/d/yyyy) Gender: Female Height: 65 in * Age: 82 yrs Ethnicity: AA Weight: 138 lb * Ordering Physician: Dylan Mi * Referring Physician: Self, Referred * Performed By: Unique Morris RDCS * * Reason For Study: Elevated Troponin * BSA: 1.7 m2 * -- Conclusions -- * 1. Normal left ventricular size with severely reduced systolic function. EF 20-25%. Akinesis of the inferior wall. Septum and anteroseptum appear akinetic to dyskinetic. Otherwise, global hypokinesis. Mild concentric left ventricular hypertrophy. Type 3 diastolic dysfunction suggested. * 2. The right ventricle is mildly dilated. Normal right ventricular systolic function. * 3. Tricuspid valve leaflets did not coapt during systole. Severe tricuspid regurgitation. * 4. Tethered posterior mitral leaflet. There is moderate to severe mitral regurgitation. * 5. Aortic valve sclerosis moderate, without significant aortic valvular stenosis. * 6. Mildly elevated right ventricular systolic pressure; 42mmHg. * 7. Compared to prior study on 06/03/2017, septum and anteroseptum now appear akinetic to dyskinetic. Procedure Details * A complete two-dimensional transthoracic echocardiogram was performed (2D, M-mode, Doppler and color flow Doppler). Left Ventricle * Normal left ventricular size with severely reduced systolic function. EF 20-25%. Akinesis of the inferior wall. Septum and anteroseptum appear akinetic to dyskinetic. Otherwise, global hypokinesis. Mild concentric left ventricular hypertrophy. Type 3 diastolic dysfunction suggested. Right Ventricle * The right ventricle is mildly dilated. * The right ventricular systolic function is normal as assessed by tricuspid annular plane systolic excursion (TAPSE) (normal >1.5 cm). Atria * The left atrium is mildly dilated. * The right atrium is moderately dilated. * There is no evidence of atrial septal defect, but resolution does not allow assessment for a patent foramen ovale. Mitral Valve * Tethered posterior mitral leaflet. * The mitral valve leaflets appear thickened, but open well. * There is no mitral valve stenosis. * There is moderate to severe mitral regurgitation. Tricuspid Valve * Tricuspid valve leaflets did not coapt during systole. * There is no tricuspid stenosis. * There is severe tricuspid regurgitation. Aortic Valve * The aortic valve is trileaflet. * Aortic valve sclerosis moderate, without significant aortic valvular stenosis. * No hemodynamically significant valvular aortic stenosis. * Trace aortic regurgitation. Pulmonic Valve * The pulmonary valve is inadequately visualized, but the Doppler data is adequate for interpretation. * There is no pulmonic valvular stenosis. * Mild pulmonic valvular regurgitation. Great Vessels * The aortic root is normal size. * Blunted pulmonary venous flow pattern. Pericardium/Pleural * There is no pericardial effusion. Great Vessels * Mildly dilated IVC with normal inspiratory collapse. MMode 2D Measurements and Calculations IVSd 1.2 cm IVSs 1.4 cm LVIDd 4.0 cm LVIDs 3.7 cm LVPWd 1.2 cm LVPWs 1.3 cm IVS/LVPW 1.1 FS 7.8 % EDV(Teich) 71.9 ml ESV(Teich) 59.3 ml EF(Teich) 17.5 % EDV(cubed) 66.2 ml ESV(cubed) 52.0 ml EF(cubed) 21.5 % % IVS thick 10.3 % % LVPW thick 12.0 % LV mass(C)d 169.2 grams LV mass(C)dI 100.1 grams/m\S\2 LV mass(C)s 176.2 grams LV mass(C)sI 104.3 grams/m\S\2 SV(Teich) 12.6 ml SI(Teich) 7.4 ml/m\S\2 SV(cubed) 14.2 ml SI(cubed) 8.4 ml/m\S\2 EPSS 2.4 cm Ao root diam 3.1 cm Ao root area 7.6 cm\S\2 ACS 1.7 cm LA dimension 3.7 cm LA/Ao 1.2 LVAd ap4 24.6 cm\S\2 LVLd ap4 7.5 cm EDV(MOD-sp4) 71.4 ml EDV(sp4-el) 69.0 ml LVAs ap4 21.6 cm\S\2 LVLs ap4 7.3 cm ESV(MOD-sp4) 55.3 ml ESV(sp4-el) 53.9 ml EF(MOD-sp4) 22.5 % EF(sp4-el) 21.9 % LVAd ap2 32.8 cm\S\2 LVLd ap2 8.7 cm EDV(MOD-sp2) 105.3 ml EDV(sp2-el) 104.6 ml LVAs ap2 26.2 cm\S\2 LVLs ap2 7.5 cm ESV(MOD-sp2) 78.3 ml ESV(sp2-el) 77.7 ml EF(MOD-sp2) 25.6 % EF(sp2-el) 25.7 % LVLd %diff 14.2 % EDV(MOD-bp) 93.3 ml LVLs %diff 2.1 % ESV(MOD-bp) 66.5 ml EF(MOD-bp) 28.7 % SV(MOD-sp4) 16.0 ml SI(MOD-sp4) 9.5 ml/m\S\2 SV(MOD-sp2) 27.0 ml SI(MOD-sp2) 16.0 ml/m\S\2 SV(MOD-bp) 26.8 ml SI(MOD-bp) 15.8 ml/m\S\2 SV(sp4-el) 15.1 ml SI(sp4-el) 8.9 ml/m\S\2 SV(sp2-el) 26.9 ml SI(sp2-el) 15.9 ml/m\S\2 Doppler Measurements and Calculations MV E max lena 108.4 cm/sec MV A max lena 53.1 cm/sec MV E/A 2.0 MV dec time 0.15 sec Ao V2 max 99.9 cm/sec Ao max PG 4.0 mmHg Ao max PG (full) 2.4 mmHg AI max lena 405.0 cm/sec AI max PG 65.6 mmHg AI dec slope 215.8 cm/sec\S\2 AI P1/2t 549.8 msec LV V1 max PG 1.6 mmHg LV V1 max 62.6 cm/sec MR max lena 613.5 cm/sec MR max PG 150.7 mmHg MR mean lena 418.8 cm/sec MR mean PG 81.2 mmHg MR VTI 177.5 cm MR PISA 1.8 cm\S\2 MR PISA radius 0.54 cm PA V2 max 67.9 cm/sec PA max PG 1.8 mmHg PI max lena 206.3 cm/sec PI max PG 17.2 mmHg PI dec slope 338.3 cm/sec\S\2 PI P1/2t 178.6 msec TR max lena 292.9 cm/sec RVSP(TR) 42.4 mmHg RAP systole 8.0 mmHg
[2018-01-06 17:53] VITALS: BP 144/96; PULSE 86; TEMP 36.4; O2SAT 95; Ht 167.6 cm; Wt 60.5 kg
[2018-01-06 19:33] VITALS: BP 136/88; PULSE 75; TEMP 36.8; O2SAT 93
[2018-01-06 20:00] VITALS: O2SAT 96
[2018-01-06] MEDS: ASPIRIN 81 MG ECTAB PO SCH (20:33)
[2018-01-06] MEDS: VENLAFAXINE HCL XR 150 MG CAPXR PO SCH (20:33)
[2018-01-06] MEDS: FUROSEMIDE INJ 20 MG in SYRINGE 0 ML IV SCH (20:34)
[2018-01-06] MEDS ORDERED: NURSING VERBAL MED ORDER ONE (21:00)
[2018-01-06 23:17] VITALS: BP 154/82; PULSE 81; TEMP 36.4; O2SAT 94
[2018-01-07] VITALS (8 sets, daily range): BP systolic 116–159; BP diastolic 76–96; PULSE 74–104; TEMP 36.3–36.9; O2SAT 94–98
[2018-01-07 07:00] LABS: HEMOGLOBIN 13.2 g/dL (12.0-16.0); MEAN CELL VOLUME 94.3 fL (80-100); MEAN CORPUSCULAR HEMOGLOBIN 31.1 pg (25-34); MEAN PLATELET VOLUME 10.4 fL (7.4-10.4); NUCLEATED RED BLOOD CELL ABS 0.04 K/uL (0-0); PLATELET COUNT 208 K/uL (130-400); RED CELL DISTRIBUTION WIDTH CV 15.4 % (11.5-14.5); RED CELL DISTRIBUTION WIDTH SD 50.8 fL (36.4-46.3); WHITE BLOOD COUNT 6.52 K/uL (4.8-10.8)
[2018-01-07 07:16] LABS: CALCIUM 8.7 mg/dl (8.5-10.1); CREATININE 1.96 mg/dl (0.60-1.20); POTASSIUM 3.9 mmol/L (3.5-5.1)
[2018-01-07] MEDS: FUROSEMIDE INJ 20 MG in SYRINGE 0 ML IV SCH (08:35)
[2018-01-07] MEDS ORDERED: ATORVASTATIN 10 MG TAB PO SCH (09:00)
[2018-01-07] MEDS ORDERED: METOPROLOL SUCC 50MG EXT REL TAB PO SCH (09:00)
[2018-01-07] MEDS ORDERED: OLMESARTAN MEDOXOMIL 20 MG TAB PO SCH ×2 (09:00→21:00)
[2018-01-07] MEDS ORDERED: POTASSIUM CHLORIDE 20 MEQ TABCR PO SCH (09:00)
[2018-01-07] MEDS ORDERED: COLCHICINE 0.6 MG TAB PO ONE (09:00)
--- NOTE | 2018-01-07 10:34 | CARDIOLOGY CONSULTATION ---
DATE OF CONSULTATION: 01/07/2018 PERTINENT HISTORY: Mrs. Quesada is an 82-year-old white female well known to me from the outpatient setting. She was admitted yesterday with decompensated systolic congestive heart failure. This consultation was ordered to assist in her management. Of note, her daughter, Cristian, is present at the bedside. The patient was in her usual state of health until approximately 1 week prior to presentation. She noted progressive exertional dyspnea along with PND and orthopnea. She did notice occasional swelling in her ankles and did take an additional dose of her diuretic. The patient does follow daily weights at home. Her dry weight as of October was 143 pounds. On the day of presentation, she weighed 138 pounds. The patient explains that she has had little appetite. She has been eating mainly canned soups. The patient's dyspnea has improved dramatically with diuresis. She is anxious for hospital discharge. Her medications were reviewed in detail. We have discussed a change to Entresto. Currently, the patient is resting comfortably in bed without complaints. PAST MEDICAL HISTORY: 1. Nonobstructive coronary artery disease -- 30% mid RCA -- May 2017. 2. Nonischemic cardiomyopathy -- ejection fraction of 20-25%, May 2017. 3. History of viral cardiomyopathy -- . 4. Chronic systolic congestive heart failure. 5. Moderate to severe tricuspid regurgitation. 6. Severe tricuspid regurgitation. 7. Hypertension. 8. Hypercholesterolemia. 9. Chronic renal failure. 10. Degenerative joint disease. 11. Bilateral total hip replacement. 12. Bipolar disorder. 13. Gout. 14. Hysterectomy. 15. Appendectomy. MEDICATIONS: 1. Benicar 20 mg at bedtime. 2. Toprol-XL 50 mg per day. 3. Furosemide 20 mg IV b.i.d. 4. Potassium 20 mEq daily. 5. Lipitor 10 mg at bedtime. 6. Lovenox 60 mg subQ daily. 7. Aspirin 81 mg per day. 8. Effexor XR 150 mg daily. ALLERGIES: None. SOCIAL HISTORY: The patient is a and lives alone. Her daughter lives nearby. She is a retired musician. She quit tobacco use 40 years ago. Uses alcohol occasionally. FAMILY HISTORY: Father in his 80s from congestive heart failure. Mother in her 80s from unknown causes. REVIEW OF SYSTEMS: A 10-point review of systems is negative except for that described above. PHYSICAL EXAMINATION: GENERAL: This is a well-developed, well-nourished black female lying at 45 degrees in bed without complaints. VITAL SIGNS: Blood pressure is 149/81 with a regular pulse of 80. Respiratory rate is 18. The patient is afebrile at 36.3 degrees Celsius. Saturations 95% on room air. HEENT: Negative. NECK: Supple with full carotid upstrokes. No carotid bruits. Jugular venous pressure is elevated to the angle of the jaw. A prominent V wave is noted. LUNGS: Note bibasilar crackles but no rhonchi or wheezes. CARDIOVASCULAR: Reveals a regular rhythm with a 3/6 apical holosystolic murmur. A 2/6 systolic murmur is heard along the left sternal border. No diastolic murmurs. No S3. ABDOMEN: Soft, nontender, without hepatomegaly. EXTREMITIES: Reveal intact radial artery and posterior tibial pulses bilaterally. Trace pretibial edema is noted. LABORATORY DATA: CBC notes a hemoglobin of 13.2, hematocrit 40.0, white count 6.5, platelet count 208,000. Electrolytes note a sodium of 141, potassium 3.9, chloride 108, bicarb 24, BUN 36, creatinine 1.96, glucose 74. Initial troponin was 0.116 with followup values of, 0.15, and 0.12, and 0.126. Magnesium level normal at 1.8. BNP is elevated at 23,972. TSH level is normal at 1.67. Echocardiogram interpreted by Jai yesterday noted severely reduced systolic performance with an ejection fraction of 20-25%. Septal wall motion abnormalities were identified. There was moderate to severe mitral and severe tricuspid regurgitation. EKG notes sinus rhythm with PVCs and left ventricular hypertrophy with repolarization changes. Chest x-ray notes cardiomegaly with congestive changes, and a left pleural effusion. IMPRESSION: Mrs. Quesada was admitted with acute on chronic systolic congestive heart failure. As above, she does have a nonischemic cardiomyopathy. We have been attempting titration of her medications as an outpatient. We will likely initiate a change from Benicar to Entresto hoping to improve control of her volume status. Her case was discussed with Dr. Salas. She does not have an increased QRS duration, so therefore, she is not a candidate for biventricular pacing. She may be a candidate for an implantable defibrillator. PLAN: 1. Discontinue Benicar. 2. Start Entresto 49/51 mg bid tomorrow. 3. Continue metoprolol succinate. 4. Further recommendations depending on her clinical course. MTDD
--- NOTE | 2018-01-07 15:00 | Progress Note ---
Subjective Date of Service: Jan 07, 2018. Subjective Pt evaluation today including: conversation w/ patient, physical exam, lab review, conversation w/ bridal consultant, review of inpatient medication list Pain: left great toe pain PO Intake: improved Voiding: no voiding problems patient feeling better today, breathing better, diuresed well poor appetite for the past several days, has been able to eat some canned soup may have spiked her sodium intake and led to systolic HF exacerbation discussed case with Dr. Cheema, plans to start Entresto patient was complaining of left great toe pain, could not let the bedsheet touch her toe, felt like gout gave Colchicine 1.2mg and pain went away completely reviewed labs, Cr elevated at 1.9, baseline is 1.4-1.6 range Problem List Medical Problems: (1) Acute chest pain Status: Acute (2) CHF exacerbation Status: Acute (3) Elevated d-dimer Status: Acute (4) Elevated troponin Status: Acute (5) Elevated troponin I level Status: Acute (6) Fall Status: Acute (7) Finger dislocation Status: Acute (8) Fracture, proximal femur Status: Acute (9) Hip pain Status: Acute (10) Renal insufficiency Status: Acute (11) Right-sided chest pain Status: Acute (12) Thigh hematoma Status: Acute Review of Systems Constitutional: + weakness, + fatigue Respiratory: + dyspnea on exertion Abdomen: + problem reported (poor appetite) Musculoskeletal: + joint pain (left great toe) Psychiatric: + depression symptoms All Other Systems: Reviewed and Negative Medications Current Inpatient Medications Medications (Trade) Dose Ordered Sig/Chinedu Route Start Time Stop Time Status Last Admin Dose Admin Aspirin (Ecotrin Tab) 81 mg HS PO 01/06/18 21:00 02/05/18 20:59 01/06/18 20:33 81 MG Venlafaxine HCl (effeXOR EXTENDED REL CAP) 150 mg HS PO 01/06/18 21:00 02/05/18 20:59 01/06/18 20:33 150 MG Acetaminophen (Tylenol Tab) 650 mg Q4H PRN PO 01/06/18 12:15 02/05/18 12:14 Al Hydrox/Mg Hydrox/Simethicone (Maalox Max Susp) 15 ml Q4H PRN PO 01/06/18 12:15 02/05/18 12:14 Magnesium Hydroxide (Milk Of Magnesia Susp) 30 ml Q12H PRN PO 01/06/18 12:15 02/05/18 12:14 Ondansetron HCl (Zofran Inj) 4 mg Q6H PRN IV 01/06/18 12:15 02/05/18 12:14 Nitroglycerin (Nitrostat Tab) 0.4 mg UD PRN SL 01/06/18 12:15 02/05/18 12:14 Morphine Sulfate (MoRPHine SULFATE INJ) 2 mg Q30M PRN IV 01/06/18 12:15 01/20/18 12:14 Polyethylene (Miralax Powder Packet) 17 gm DAILY PRN PO 01/06/18 12:15 02/05/18 12:14 Furosemide 20 mg/ Syringe 2 ml @ 4 mls/min BID17 IV 01/06/18 21:00 02/05/18 20:59 01/07/18 08:35 4 MLS/MIN Miscellaneous (Iv Fluids Completed) 1 ea PRN PRN N/A 01/06/18 13:00 01/06/19 12:59 Enoxaparin Sodium (Lovenox Inj) 60 mg DAILY@1500 SQ 01/07/18 15:00 02/06/18 14:59 Olmesartan (Benicar Tab) 20 mg HS PO 01/07/18 21:00 02/06/18 08:59 Potassium Chloride (Klor-Con Tab) 20 meq HS PO 01/07/18 21:00 02/06/18 08:59 Atorvastatin Calcium (Lipitor Tab) 10 mg HS PO 01/07/18 21:00 02/06/18 08:59 Metoprolol Succinate (Toprol Xl Tab) 50 mg HS PO 01/07/18 21:00 02/06/18 08:59 Objective Vital Signs Date Time Temp Pulse Resp B/P (MAP) Pulse Ox O2 Delivery O2 Flow Rate FiO2 01/07/18 12:09 82 16 134/88 (103) 97 Room Air 01/07/18 11:45 Room Air 01/07/18 07:45 Room Air 01/07/18 07:45 36.3 83 18 149/81 (103) 95 Room Air 01/07/18 04:00 Room Air 01/07/18 03:10 36.9 82 18 159/96 (117) 94 Room Air 01/07/18 00:00 Room Air 01/06/18 23:17 36.4 81 20 154/82 (106) 94 Room Air 01/06/18 20:00 96 Room Air 01/06/18 19:33 36.8 75 18 136/88 (104) 93 Room Air 01/06/18 17:53 36.4 86 18 144/96 95 Room Air 01/06/18 16:13 77 18 131/77 98 Physical Exam General Appearance: WD/WN, no apparent distress Eyes: normal inspection, EOMI, sclerae normal ENT: normal ENT inspection, hearing grossly normal, pharynx normal Neck: supple, no adenopathy, no JVD, trachea midline Respiratory/Chest: chest non-tender, lungs clear, normal breath sounds, no respiratory distress, no accessory muscle use Cardiovascular: regular rate, rhythm, no edema, no gallop, no JVD, no murmur Abdomen: normal bowel sounds, non tender, soft, no organomegaly Extremities: normal range of motion, no pedal edema, no calf tenderness, pelvis stable, + pertinent finding (left podagra joint tender, swollen) 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, no motor/sensory deficits, alert, normal mood/affect, oriented x 3 Skin: normal color, warm/dry, no rash Laboratory Results Last 24 Hours Test 01/06/18 19:48 01/07/18 06:42 Troponin I 0.120 ng/ml 0.126 ng/ml White Blood Count 6.52 K/uL Red Blood Count 4.24 M/uL Hemoglobin 13.2 g/dL Hematocrit 40.0 % Mean Corpuscular Volume 94.3 fL Mean Corpuscular Hemoglobin 31.1 pg Mean Corpuscular Hemoglobin Concent 33.0 g/dl RDW Standard Deviation 50.8 fL RDW Coefficient of Variation 15.4 % Platelet Count 208 K/uL Mean Platelet Volume 10.4 fL Nucleated RBC Absolute Count (auto) 0.04 K/uL Nucleated Red Blood Cells % 0.7 % Sodium Level 141 mmol/L Potassium Level 3.9 mmol/L Chloride Level 108 mmol/L Carbon Dioxide Level 24 mmol/L Anion Gap 10.0 mmol/L Blood Urea Nitrogen 36 mg/dl Creatinine 1.96 mg/dl Est Creatinine Clear Calc Drug Dose 21.1 ml/min Estimated GFR () 27.1 Estimated GFR (Non- 23.4 BUN/Creatinine Ratio 18.4 Random Glucose 74 mg/dl Calcium Level 8.7 mg/dl Magnesium Level 1.8 mg/dl Assessment and Plan 82 y/o F Hx combined CHF, CKD III, CAD, HTN, HPL. Pt presents with progressive fatigue and exertional dyspnea. She states that she can barely walk across a room due to her symptoms. She denies weight gain or lower extremity edema. She denies CP, a productive cough, N/V or fevers. Initial labs reveal a marginally elevated trop and worsening renal function. CXR is consistent with pulmonary edema. EKG reveals lat inversions which were not present on previous EKGs. - Acute on chronic systolic and diastolic heart failure: h/o EF of 25%, repeat echo today shows that EF is the same at 20-25% perhaps increased salt intake led to exacerbation she weighs herself every morning, reported weight was going down? however, her BNP was elevated and she diuresed 600cc with Lasix IV will hold on further Lasix given that she examines euvolemic, breathing room air check BNP tomorrow Dr. 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
[2018-01-07] MEDS: ENOXAPARIN 60 MG/0.6 ML SYR SQ SCH (16:52)
[2018-01-07] MEDS: VENLAFAXINE HCL XR 150 MG CAPXR PO SCH (21:09)
[2018-01-07] MEDS: ASPIRIN 81 MG ECTAB PO SCH (21:09)
[2018-01-07] MEDS: METOPROLOL SUCC 50MG EXT REL TAB PO SCH (21:09)
[2018-01-07] MEDS: COLCHICINE 0.6 MG TAB PO SCH (21:10)
[2018-01-07] MEDS: POTASSIUM CHLORIDE 20 MEQ TABCR PO SCH (21:10)
[2018-01-07] MEDS: ATORVASTATIN 10 MG TAB PO SCH (21:11)
--- NOTE | 2018-01-07 21:28 | DIAGNOSTIC IMAGING REPORT ---
CHEST ONE VIEW PORTABLE CLINICAL HISTORY: Chest Pain dyspnea COMPARISON STUDY: 01/06/2018 FINDINGS: Moderate stable cardiomegaly. Prominent pulmonary vasculature. Minimal superimposed infiltrate left base. IMPRESSION: Congestive failure is stable to perhaps slightly improved compared to the prior study. Small residual parenchymal infiltrate left base. The above report was generated using voice recognition software. It may contain grammatical, syntax or spelling errors. Electronically signed by: Marco Muse M.D. 01/07/2018 9:27 PM Dictated Date/Time: 01/07/2018 9:26 PM
[2018-01-07] MEDS ORDERED: ZOLPIDEM TARTRATE 5 MG TAB PO PRN (23:45)
[2018-01-08 03:21] VITALS: BP 97/52; PULSE 86; TEMP 36; O2SAT 92
[2018-01-08 07:26] VITALS: BP 134/87; PULSE 76; TEMP 36.5; O2SAT 97
[2018-01-08] MEDS: COLCHICINE 0.6 MG TAB PO SCH ×2 (07:28→21:00)
[2018-01-08 07:48] LABS: BASO % 0.3 %; BASO ABS # 0.02 K/uL (0-0.2); EOS % 1.6 %; HEMATOCRIT 42.5 % (37-47); HEMOGLOBIN 13.5 g/dL (12.0-16.0); IG# 0.04 K/uL (0.00-0.02); LYMPH % 24.1 %; LYMPH ABS # 1.55 K/uL (1.2-3.4); MEAN CELL VOLUME 95.1 fL (80-100); MEAN CORPUSCULAR HEMOGLOBIN 30.2 pg (25-34); MEAN CORPUSCULAR HGB CONC 31.8 g/dl (32-36); MONO ABS # 0.64 K/uL (0.11-0.59); NEUT % 63.4 %; NEUT ABS # 4.08 K/uL (1.4-6.5); NUCLEATED RED BLOOD CELL ABS 0.04 K/uL (0-0); PLATELET COUNT 210 K/uL (130-400); RED CELL DISTRIBUTION WIDTH CV 15.5 % (11.5-14.5); RED CELL DISTRIBUTION WIDTH SD 52.1 fL (36.4-46.3); WHITE BLOOD COUNT 6.43 K/uL (4.8-10.8)
[2018-01-08 08:21] LABS: CALCIUM 8.7 mg/dl (8.5-10.1); CREATININE 1.96 mg/dl (0.60-1.20); POTASSIUM 3.9 mmol/L (3.5-5.1)
[2018-01-08 12:04] VITALS: BP 131/87; PULSE 78; TEMP 36.3; O2SAT 97
--- NOTE | 2018-01-08 12:35 | Progress Note ---
Subjective Date of Service: Jan 08, 2018. Subjective Pt evaluation today including: conversation w/ patient, physical exam, lab review, conversation w/ community health consultant, review of inpatient medication list Pain: no pain PO Intake: some breakfast, not much dinner Voiding: no voiding problems patient still feels weak, starting Entresto today discussed with Dr. Cheema no pain in toe today, gout flare resolved Problem List Medical Problems: (1) Acute chest pain Status: Acute (2) CHF exacerbation Status: Acute (3) Elevated d-dimer Status: Acute (4) Elevated troponin Status: Acute (5) Elevated troponin I level Status: Acute (6) Fall Status: Acute (7) Finger dislocation Status: Acute (8) Fracture, proximal femur Status: Acute (9) Hip pain Status: Acute (10) Renal insufficiency Status: Acute (11) Right-sided chest pain Status: Acute (12) Thigh hematoma Status: Acute Review of Systems Constitutional: + weakness, + fatigue Respiratory: + dyspnea on exertion Neurologic: + weakness, + balance problems All Other Systems: Reviewed and Negative Medications Current Inpatient Medications Medications (Trade) Dose Ordered Sig/Chinedu Route Start Time Stop Time Status Last Admin Dose Admin Aspirin (Ecotrin Tab) 81 mg HS PO 01/06/18 21:00 02/05/18 20:59 01/07/18 21:09 81 MG Venlafaxine HCl (effeXOR EXTENDED REL CAP) 150 mg HS PO 01/06/18 21:00 02/05/18 20:59 01/07/18 21:09 150 MG Acetaminophen (Tylenol Tab) 650 mg Q4H PRN PO 01/06/18 12:15 02/05/18 12:14 Al Hydrox/Mg Hydrox/Simethicone (Maalox Max Susp) 15 ml Q4H PRN PO 01/06/18 12:15 02/05/18 12:14 Magnesium Hydroxide (Milk Of Magnesia Susp) 30 ml Q12H PRN PO 01/06/18 12:15 02/05/18 12:14 Ondansetron HCl (Zofran Inj) 4 mg Q6H PRN IV 01/06/18 12:15 02/05/18 12:14 Nitroglycerin (Nitrostat Tab) 0.4 mg UD PRN SL 01/06/18 12:15 02/05/18 12:14 Morphine Sulfate (MoRPHine SULFATE INJ) 2 mg Q30M PRN IV 01/06/18 12:15 01/20/18 12:14 Polyethylene (Miralax Powder Packet) 17 gm DAILY PRN PO 01/06/18 12:15 02/05/18 12:14 Miscellaneous (Iv Fluids Completed) 1 ea PRN PRN N/A 01/06/18 13:00 01/06/19 12:59 Enoxaparin Sodium (Lovenox Inj) 60 mg DAILY@1500 SQ 01/07/18 15:00 02/06/18 14:59 01/07/18 16:52 60 MG Potassium Chloride (Klor-Con Tab) 20 meq HS PO 01/07/18 21:00 02/06/18 08:59 01/07/18 21:10 20 MEQ Atorvastatin Calcium (Lipitor Tab) 10 mg HS PO 01/07/18 21:00 02/06/18 08:59 01/07/18 21:11 10 MG Metoprolol Succinate (Toprol Xl Tab) 50 mg HS PO 01/07/18 21:00 02/06/18 08:59 01/07/18 21:09 50 MG Colchicine (Colchicine Tab) 0.6 mg BID PO 01/07/18 21:00 02/06/18 20:59 01/08/18 07:28 0.6 MG Zolpidem Tartrate (Ambien Tab) 5 mg HS PRN PO 01/07/18 23:45 02/06/18 23:44 01/07/18 23:53 5 MG Objective Vital Signs Date Time Temp Pulse Resp B/P (MAP) Pulse Ox O2 Delivery O2 Flow Rate FiO2 01/08/18 12:04 36.3 78 16 131/87 (102) 97 Room Air 01/08/18 08:00 Room Air 01/08/18 07:26 36.5 76 18 134/87 (103) 97 Room Air 01/08/18 04:00 Room Air 01/08/18 03:21 36.0 86 16 97/52 (67) 92 Nasal Cannula 01/08/18 00:00 Room Air 01/07/18 23:40 36.5 80 16 134/90 (105) 97 Room Air 01/07/18 20:03 96 Room Air 01/07/18 18:45 36.4 104 20 124/82 (96) 95 Room Air 01/07/18 16:05 96 Room Air 01/07/18 15:10 36.5 74 16 130/82 (98) 96 Room Air Physical Exam General Appearance: no apparent distress, + thin Eyes: normal inspection, EOMI, sclerae normal ENT: normal ENT inspection, hearing grossly normal, pharynx normal Neck: supple, no adenopathy, no JVD, trachea midline Respiratory/Chest: chest non-tender, lungs clear, normal breath sounds, no respiratory distress, no accessory muscle use Cardiovascular: regular rate, rhythm, no edema, no gallop, no JVD, no murmur Abdomen: normal bowel sounds, non tender, soft, no organomegaly Extremities: normal range of motion, non-tender, normal inspection, no pedal edema, no calf tenderness, pelvis stable 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, alert, normal mood/affect, oriented x 3, + motor weakness (generalized) Skin: normal color, warm/dry, no rash Laboratory Results Last 24 Hours Test 01/07/18 21:09 01/08/18 07:25 Troponin I 0.113 ng/ml White Blood Count 6.43 K/uL Red Blood Count 4.47 M/uL Hemoglobin 13.5 g/dL Hematocrit 42.5 % Mean Corpuscular Volume 95.1 fL Mean Corpuscular Hemoglobin 30.2 pg Mean Corpuscular Hemoglobin Concent 31.8 g/dl Platelet Count 210 K/uL Mean Platelet Volume 10.0 fL Neutrophils (%) (Auto) 63.4 % Lymphocytes (%) (Auto) 24.1 % Monocytes (%) (Auto) 10.0 % Eosinophils (%) (Auto) 1.6 % Basophils (%) (Auto) 0.3 % Neutrophils # (Auto) 4.08 K/uL Lymphocytes # (Auto) 1.55 K/uL Monocytes # (Auto) 0.64 K/uL Eosinophils # (Auto) 0.10 K/uL Basophils # (Auto) 0.02 K/uL RDW Standard Deviation 52.1 fL RDW Coefficient of Variation 15.5 % Immature Granulocyte % (Auto) 0.6 % Immature Granulocyte # (Auto) 0.04 K/uL Nucleated RBC Absolute Count (auto) 0.04 K/uL Nucleated Red Blood Cells % 0.6 % Sodium Level 141 mmol/L Potassium Level 3.9 mmol/L Chloride Level 106 mmol/L Carbon Dioxide Level 27 mmol/L Anion Gap 8.0 mmol/L Blood Urea Nitrogen 38 mg/dl Creatinine 1.96 mg/dl Est Creatinine Clear Calc Drug Dose 21.1 ml/min Estimated GFR () 27.1 Estimated GFR (Non- 23.4 BUN/Creatinine Ratio 19.5 Random Glucose 92 mg/dl Calcium Level 8.7 mg/dl Pro-B-Type Natriuretic Peptide 75695 pg/ml Assessment and Plan 82 y/o F Hx combined CHF, CKD III, CAD, HTN, HPL. Pt presents with progressive fatigue and exertional dyspnea. She states that she can barely walk across a room due to her symptoms. She denies weight gain or lower extremity edema. She denies CP, a productive cough, N/V or fevers. Initial labs reveal a marginally elevated trop and worsening renal function. CXR is consistent with pulmonary edema. EKG reveals lat inversions which were not present on previous EKGs. - Acute on chronic systolic and diastolic heart failure: h/o EF of 25%, repeat echo 01/07 shows that EF is the same at 20-25% perhaps increased salt intake led to exacerbation she weighs herself every morning, reported weight was going down? however, her BNP was elevated and she diuresed 600cc with Lasix IV will hold on further Lasix given that she examines euvolemic, breathing room air BNP down to [address] Cheema recommends changing ARB to Entresto today, ordered patient needs to get insurance authorization, Dr. 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
--- NOTE | 2018-01-08 14:59 | CARDIOLOGY PROGRESS NOTE ---
DATE: 01/08/2018 SUBJECTIVE: Mrs. Quesada is resting comfortably in bed without complaints of chest pain or dyspnea. She slept well last evening. OBJECTIVE: VITAL SIGNS: Blood pressure is 130/80 with a regular pulse of 78. Respiratory rate is 16. The patient is afebrile at 36.3 degrees Celsius. Saturations 97% on room air. NECK: Supple with full carotid upstrokes. No carotid bruits. Jugular venous pressure is elevated to the angle of the jaw. A prominent V wave is noted. LUNGS: Clear without rales, rhonchi, or wheezes. CARDIOVASCULAR: Reveals a regular rhythm with a 3/6 apical holosystolic murmur and a 2/6 systolic murmur heard along the left sternal border. No S3. ABDOMEN: Soft without bruits. EXTREMITIES: Reveal intact radial artery pulses bilaterally. Trace pretibial edema is noted. DATA: CBC notes hemoglobin of 13.5, hematocrit 42.5, white count 6.4, platelet count 210,000. Electrolytes note a sodium of 141, potassium 3.9, chloride 106, bicarb 27, BUN 38, creatinine 1.96, glucose 92. BNP is down to 18,681. computer typesetter keyliner noted occasional PVCs. IMPRESSION AND PLAN: 1. Acute on chronic systolic congestive heart failure -- suspect that her indiscretion with dietary salt may have been the etiology. She was changed from Benicar to Entresto this morning. Hopefully, this will improve her status. 2. Nonobstructive coronary artery disease -- 30% mid right coronary artery in May 2017. 3. Nonischemic cardiomyopathy -- ejection fraction of 20-25% since May 2017. We may need to consider an implantable defibrillator. 4. Moderate to severe tricuspid regurgitation. 5. Severe tricuspid regurgitation. 6. Hypertension. 7. Hypercholesterolemia. 8. Chronic renal failure. MTDD
[2018-01-08] MEDS: ENOXAPARIN 60 MG/0.6 ML SYR SQ SCH (15:09)
[2018-01-08 16:17] VITALS: BP 128/87; PULSE 74; TEMP 36.4; O2SAT 90
[2018-01-08 19:39] VITALS: BP 129/84; PULSE 80; TEMP 36.6; O2SAT 94
[2018-01-08] MEDS: ASPIRIN 81 MG ECTAB PO SCH (20:58)
[2018-01-08] MEDS: POTASSIUM CHLORIDE 20 MEQ TABCR PO SCH (20:59)
[2018-01-08] MEDS: VENLAFAXINE HCL XR 150 MG CAPXR PO SCH (21:00)
[2018-01-08] MEDS: ATORVASTATIN 10 MG TAB PO SCH (21:02)
[2018-01-08] MEDS: METOPROLOL SUCC 50MG EXT REL TAB PO SCH (21:02)
[2018-01-08] MEDS: SACUBITRIL-VALSARTAN 49-51 MG TAB PO SCH (21:04)
[2018-01-09 00:02] VITALS: BP 131/87; PULSE 75; TEMP 36.3; O2SAT 91
[2018-01-09 03:44] VITALS: BP 136/80; PULSE 84; TEMP 36.8; O2SAT 93
[2018-01-09 07:04] LABS: HEMATOCRIT 44.4 % (37-47); HEMOGLOBIN 14.1 g/dL (12.0-16.0); MEAN CELL VOLUME 96.3 fL (80-100); MEAN CORPUSCULAR HEMOGLOBIN 30.6 pg (25-34); MEAN CORPUSCULAR HGB CONC 31.8 g/dl (32-36); MEAN PLATELET VOLUME 10.1 fL (7.4-10.4); NUCLEATED RED BLOOD CELL ABS 0.04 K/uL (0-0); PLATELET COUNT 218 K/uL (130-400); RED CELL DISTRIBUTION WIDTH CV 15.7 % (11.5-14.5); RED CELL DISTRIBUTION WIDTH SD 53.4 fL (36.4-46.3); WHITE BLOOD COUNT 6.32 K/uL (4.8-10.8)
[2018-01-09 07:36] LABS: CREATININE 1.65 mg/dl (0.60-1.20)
[2018-01-09 07:47] VITALS: BP 135/81; PULSE 70; TEMP 36.7; O2SAT 94
[2018-01-09] MEDS: COLCHICINE 0.6 MG TAB PO SCH ×2 (08:18→17:41)
[2018-01-09] MEDS: SACUBITRIL-VALSARTAN 49-51 MG TAB PO SCH ×2 (08:18→17:41)
[2018-01-09 11:08] VITALS: BP 126/83; PULSE 63; TEMP 36.8; O2SAT 94
--- NOTE | 2018-01-09 12:13 | CARDIOLOGY PROGRESS NOTE ---
DATE: 01/09/2018 SUBJECTIVE: Mrs. Quesada is resting comfortably in bed without complaints of chest pain or dyspnea. She was able to sleep completely supine last evening. She is anxious for hospital discharge. OBJECTIVE: VITAL SIGNS: Blood pressure is 126/83 with a regular pulse of 63. Respiratory rate is 16. The patient is afebrile at 36.8 degrees Celsius. Saturations 94% on room air. NECK: Supple with full carotid upstrokes. There are no carotid bruits. Jugular venous pressure is elevated to the angle of the jaw with a prominent V wave again noted. CARDIOVASCULAR: Reveals a regular rhythm with a normal S1 and S2. A 3/6 apical holosystolic murmur is noted along with a 2/6 systolic murmur along the left sternal border. No S3. LUNGS: Clear without rales, rhonchi, or wheezes. ABDOMEN: Benign without bruits. EXTREMITIES: Reveal intact radial artery pulses bilaterally. Trace pretibial edema is noted. DATA: CBC notes hemoglobin 14.1, hematocrit 44.4, white count 6.3, and platelet count 218,000. Electrolytes note a sodium of 141, potassium 3.9, chloride 106, bicarb 27, BUN 38, creatinine 1.96, glucose 92. ekg monitor tech noted one brief episode of an atrial tachycardia. IMPRESSION AND PLAN: 1. Acute on chronic systolic heart failure -- suspect this was related to dietary indiscretion with salt. She is tolerating Entresto without difficulty. In fact, she feels improved since starting that medication. 2. Nonobstructive coronary artery disease -- cardiac catheterization in May 2017 noted a 30% mid right coronary stenosis. 3. Nonischemic cardiomyopathy -- ejection fraction of 20-25%, since May 2017. We will recheck an echocardiogram in approximately 3-4 months and determine whether an implantable defibrillator is indicated. 4. Moderate to severe mitral regurgitation. 5. Severe tricuspid regurgitation. 6. Hypertension. 7. Hypercholesterolemia. 8. Chronic renal failure. 9. Disposition -- stable for hospital discharge. CRISTINAD
[2018-01-09] MEDS ORDERED: SACU1TAB7 PO (13:16)
[2018-01-09] MEDS ORDERED: CLC6 PO (13:16)
--- NOTE | 2018-01-09 13:20 | Discharge Instructions ---
Discharge Instructions Date of Service Jan 09, 2018. Admission Reason for Admission: Chest Pain, Dyspnea Discharge Discharge Diagnosis / Problem: Acute on chronic systolic heart failure, gout flare Discharge Goals Goal(s): Decrease discomfort, Improve function, Improve disease control Activity Recommendations Activity Limitations: resume your previous activity . Instructions / Follow-Up Instructions / Follow-Up Medications: - COLCHICINE: take twice a day for 10 more days to treat gout - ENTRESTO: new medication for heart failure, Dr. Cheema will provide samples, keep script until you have figured out part D medicare coverage if there are issues getting this covered you can speak with Dr. Cheema's office Acute on chronic systolic heart failure please continue your previous regimen, only now the Entresto will replace the Benicar follow previous fluid restriction and weigh yourself every morning follow up with Dr. Cheema Poor appetite: please follow up with your primary care physician to discuss this further FOLLOW UP - Raquel Zaragoza in one week, please call for a follow up - Dr. Cheema in several weeks, call for follow up appointment Current Hospital Diet Patient's current hospital diet: AHA Diet (Heart Healthy) Discharge Diet Recommended Diet: AHA Diet (Heart Healthy) Fluid Restriction: 1500 ml (6 cups) Pending Studies Studies pending at discharge: no Medical Emergencies . Who to Call and When: Medical Emergencies: If at any time you feel your situation is an emergency, please call 911 immediately. . Non-Emergent Contact Non-Emergency issues call your: Primary Care Provider, Manufacturing Planner Call Non-Emergent contact if: you have any medication questions . . "Provider Documentation" section prepared by Adolph Higgins. . VTE Core Measure Inpt VTE Proph given/why not?: Enoxaparin (Lovenox)SQ [place] Drug Monitoring Program Search Results: no issues identified
[2018-01-09 14:37] VITALS: BP 126/83; PULSE 63; TEMP 36.8; O2SAT 94
[2018-01-09] MEDS: ENOXAPARIN 60 MG/0.6 ML SYR SQ SCH (15:00)
--- NOTE | 2018-01-10 06:46 | Discharge Summary ---
Discharge Summary Date of Service Jan 09, 2018. Discharge Summary Admission Date: Jan 07, 2018 at 14:51 Discharge Date: Jan 09, 2018 Discharge Disposition: Home Principal Diagnosis: Acute on chronic systolic heart failure Problems/Secondary Diagnoses: VITOR on CKD stage III Acute gout flare Elevated troponin Procedures: none Consultations: Cardiology Medication Reconciliation New Medications: Colchicine (Colcrys) 0.6 Mg Tab 0.6 MG PO BID, #20 TAB 0 Refills Sacubitril-Valsartan (Entresto 49-51 mg) 1 Tab Tab 1 TAB PO BID, #60 TAB 1 Refill Continued Medications: Aspirin (Aspirin Ec) 81 Mg Tab 81 MG PO HS Atorvastatin (Lipitor) 10 Mg Tab 10 MG PO DAILY, #90 Metoprolol Succinate (Metoprolol Succinate ER) 50 Mg Tabcr 50 MG PO DAILY Venlafaxine Hcl (Effexor Extended Rel) 150 Mg Cap 150 MG PO HS Discontinued Medications: Olmesartan Medoxomil (Benicar) 20 Mg Tab 20 MG PO DAILY, TAB Discharge Exam Patient feeling better the day of discharge, ambulating without any dyspnea, able to lay completely flat the night before without any dyspnea. Discussed the case with Dr. Cheema, felt she was ready for discharge, need to get Entresto samples. Review of Systems: Constitutional: No fever, No chills, No sweats, No weight loss, No weakness , No fatigue, No problem reported Eyes: No worsening of vision, No eye pain, No redness, No discharge, No diplopia, No problem reported ENT: No hearing loss, No unusual epistaxis, No nasal symptoms, No sore throat, No tinnitus, No dental problems, No trouble swallowing, No problem reported Respiratory: No cough, No sputum, No wheezing, No shortness of breath, No dyspnea on exertion, No dyspnea at rest, No hemoptysis, No problem reported Cardiovascular: No chest pain, No orthopnea, No PND, No edema, No claudication, No palpitations, No problem reported Abdomen: + problem reported (appetite stilll suboptimal), No pain, No nausea , No vomiting, No diarrhea, No constipation, No GI bleeding Genitourinary - Female: No dysuria, No urinary frequency, No urinary urgency , No urinary incontinence, No urinary retention, No hematuria Neurologic: No memory loss, No paralysis, No weakness, No numbness/tingling , No vertigo, No balance problems, No problem reported Psychiatric: No depression symptoms, No anhedonism, No anxiety, No insomnia , No substance abuse, No problem reported Endocrine: No fatigue, No excessive thirst, No excessive urination, No problem reported Hematologic / Lymphatic: No abnormal bleeding/bruising, No clotting problems , No swollen lymph nodes, No night sweats, No problem reported Integumentary: No rash, No itch, No new/changing skin lesions, No color change, No bleeding, No problem reported Physical Exam: General Appearance: WD/WN, no apparent distress Eyes: normal inspection, EOMI, sclerae normal ENT: normal ENT inspection, hearing grossly normal, pharynx normal Neck: supple, no adenopathy, no JVD, trachea midline Respiratory/Chest: chest non-tender, lungs clear, normal breath sounds, no respiratory distress, no accessory muscle use Cardiovascular: regular rate, rhythm, no edema, no gallop, no JVD, no murmur , normal peripheral pulses Abdomen / GI: normal bowel sounds, non tender, soft, no organomegaly Extremities: normal inspection, no calf tenderness, normal capillary refill , no pedal edema, normal range of motion, pelvis stable 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 Pt presents with progressive fatigue and exertional dyspnea. She states that she can barely walk across a room due to her symptoms. She denies weight gain or lower extremity edema. She denies CP, a productive cough, N/V or fevers. Initial labs reveal a marginally elevated trop and worsening renal function. CXR is consistent with pulmonary edema. EKG reveals lat inversions which were not present on previous EKGs. - Acute on chronic systolic and diastolic heart failure: h/o EF of 25%, repeat echo 01/07 shows that EF is the same at 20-25% perhaps increased salt intake led to exacerbation, eating a lot of canned soups she weighs herself every morning, reported weight was going down? however, her BNP was elevated and she diuresed 600cc with Lasix IV BNP down to [address] Cheema recommends changing Benicar to Entresto patient needs to get insurance authorization, Dr. Cheema has samples at office she will go to Dr. Cheema's office on 01/10 for samples follow up with PCP in one week, follow up with Dr Cheema in several weeks - Elevated troponin: three levels at 0.1, no chest pain, no EKG changes attributed to demand ischemia in setting of heart failure/cardiomyopathy - Mild VITOR on CKD stage III/IV: resolved, Cr down to 1.6 from 1.9 adequate UO with Lasix - Acute gout attack, left toe resolved quickly with Colchicine 1.2mg will give 0.6mg q12, continue on discharge for 10 days patient does not take Allopurinol notes that she gets a gout flare every few months, but they always resolve quickly - HTN: metoprolol Full code d/c to home Total Time Spent: Greater than 30 minutes This includes examination of the patient, discharge planning, medication reconciliation, and communication with other providers. Discharge Instructions Please refer to the electronic Patient Visit Report (Discharge Instructions) for additional information. Follow-Up Raquel PALOMINO in one week Dr. Cheema in a few weeks Additional Copies To Raquel Zaragoza CRNP; Gus Cheema M.D.
== END 2018-01-09 18:15 | disposition home or self-care (01) | DRG 291 ==
LOC: C.EDB 09:24 → C.MED 12:18 → ENRESERV 15:18 → OBSVTOIN 01-07 14:51
PROVIDERS: ADMIT Internal Medicine; ATTEND Internal Medicine
DX: I13.0 Hypertensive heart and chronic kidney disease with heart failure and stage 1 through stage 4 chronic kidney disease, or unspecified chronic kidney disease (principal); I50.23 Acute on chronic systolic (congestive) heart failure; N17.9 Acute kidney failure, unspecified; I24.8 Other forms of acute ischemic heart disease; N18.3 Chronic kidney disease, stage 3 (moderate); I25.5 Ischemic cardiomyopathy; M10.9 Gout, unspecified; I25.10 Atherosclerotic heart disease of native coronary artery without angina pectoris; E78.5 Hyperlipidemia, unspecified; F31.9 Bipolar disorder, unspecified; Z87.891 Personal history of nicotine dependence; Z79.82 Long term (current) use of aspirin; Z79.899 Other long term (current) drug therapy; Z91.013 Allergy to seafood; Z96.643 Presence of artificial hip joint, bilateral; Z90.710 Acquired absence of both cervix and uterus; Z90.49 Acquired absence of other specified parts of digestive tract; Z82.49 Family history of ischemic heart disease and other diseases of the circulatory system; Z83.3 Family history of diabetes mellitus

== ENCOUNTER 2018-01-24 09:31 | Emergency (ER) | payer OTHER ==
[~2018-01-24] VITALS: Ht 170.2 cm; Wt 60.1 kg
[~2018-01-24 09:31] MED LIST changes: -AMLO2.5T PO; +CLC6 PO; -FURO-85 PO; -OLME5TAB3 PO; -PRD20 PO; +SACU1TAB7 PO
[2018-01-24 09:37] VITALS: TEMP 36.5; Ht 170.2 cm; Wt 60.1 kg
[2018-01-24] MEDS ORDERED: ACETAMINOPHEN 500 MG TAB PO STA (09:49)
[2018-01-24] MEDS ORDERED: FRS/40 PO (10:00)
--- NOTE | 2018-01-24 10:47 | DIAGNOSTIC IMAGING REPORT ---
L SHOULDER MIN 2 VIEWS ROUTINE HISTORY: 82 years-old Female fall, pain, left acute left shoulder pain status post fall COMPARISON: Chest radiograph 01/07/2018 TECHNIQUE: 3 views of the left shoulder FINDINGS: Severe degenerative changes of the glenohumeral joint with mild AC joint degenerative changes. The bones appear to be mildly demineralized. No acute fracture or dislocation. The clavicle appears intact. The heart appears to be enlarged. Atherosclerosis of the aorta. Probable biopsy clip of the left breast is noted. IMPRESSION: 1. Severe degenerative changes of the left glenohumeral joint without acute fracture or dislocation. 2. Osteopenic appearance of the bones. The above report was generated using voice recognition software. It may contain grammatical, syntax or spelling errors. Electronically signed by: Canelo Lam M.D. 01/24/2018 10:46 AM Dictated Date/Time: 01/24/2018 10:45 AM
--- NOTE | 2018-01-24 10:48 | DIAGNOSTIC IMAGING REPORT ---
SACRUM COCCYX MIN 2 VIEWS CLINICAL HISTORY: 82 years-old Female presenting with fall, pain. TECHNIQUE: 3 views of the sacrum and coccyx were obtained. COMPARISON: Plain radiograph of the pelvis from 11/10/2015. FINDINGS: Apparent fracture of the sacrococcygeal junction with dorsal displacement of the distal fracture fragment, which appears to comprise majority of the coccyx. Bilateral total hip arthroplasties noted. Sacroiliac joints demonstrate no evidence of erosions or fusion. Minimal osteophytosis may be present. Atherosclerosis. Degenerative changes of the pubic symphysis. Degenerative changes of the lower lumbar spine. IMPRESSION: Acute displaced fracture at the sacrococcygeal junction with dorsal displacement of the coccyx. Electronically signed by: Elmer Martino M.D. 01/24/2018 10:46 AM Dictated Date/Time: 01/24/2018 10:44 AM
--- NOTE | 2018-01-24 10:51 | DIAGNOSTIC IMAGING REPORT ---
CHEST ONE VIEW PORTABLE CLINICAL HISTORY: 82 years-old Female presenting with fall, pain. TECHNIQUE: Portable upright AP view of the chest was obtained. COMPARISON: 01/07/2018. FINDINGS: The patient is HAMPTON rotated. Atherosclerosis of aortic arch. Cardiac silhouette enlarged. Mild pulmonary vascular prominence. Lungs and pleural spaces clear. Prominent skin folds noted over the right apex. Degenerative changes of the thoracic spine. Degenerative changes of the left glenohumeral joint. Upper abdomen normal. IMPRESSION: 1. Mild cardiomegaly. No other evidence of acute cardiopulmonary disease. Electronically signed by: Elmer Martino M.D. 01/24/2018 10:50 AM Dictated Date/Time: 01/24/2018 10:48 AM
--- NOTE | 2018-01-24 11:50 | DIAGNOSTIC IMAGING REPORT ---
PELVIS NO IV/ORAL CONT (CT) HISTORY: 82 years-old Female fall, fx of sacrum by plain film acute pelvic pain with questioned fracture of the sacrum/coccyx seen on comparison radiographs COMPARISON: Sacrum and coccyx radiographs of same day TECHNIQUE: Multiple axial CT images of the pelvis were obtained without contrast. A dose lowering technique was used consistent with the principals of JERRY. FINDINGS: The bones appear moderately demineralized. The exam is limited secondary to streak artifact from bilateral hip arthroplasties. No evidence of hardware complication or loosening. Severe degenerative changes are seen within the pubic symphysis with moderate degenerative changes of the bilateral SI joints. 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 Severe intervertebral disc space narrowing with endplate spurring and facet arthrosis seen at L5-S1. Facet arthropathy and endplate spurring is also seen at L4-L5. No evidence of sacral insufficiency fracture. The bilateral iliac bones appear intact. There is mild soft tissue stranding surrounding the coccyx with 5 mm anterior displacement of the coccyx in relation to the distal sacrum as seen on image 35 series 201 suggesting acutely displaced fracture of the sacrococcygeal junction. No additional acute fracture or subluxation identified. Calcifications are seen involving the arterial vascular structures. No acute abnormality identified in the imaged pelvis. Small fat filled periumbilical hernia. Mild nonspecific body wall edema. IMPRESSION: 1. Moderately demineralized appearance of the bones limits evaluation for acute nondisplaced fracture. Again noted is a mildly displaced acute fracture of the sacrococcygeal junction with mild surrounding soft tissue edema. 2. No additional acute fracture or subluxation identified involving the pelvis. No evidence of sacral insufficiency or pelvic ring fracture. 3. Severe degenerative changes with chondrocalcinosis of the pubic symphysis. 4. Streak artifact from bilateral intact hip arthroplasties limits the study. The above report was generated using voice recognition software. It may contain grammatical, syntax or spelling errors. Electronically signed by: Canelo Lam M.D. 01/24/2018 11:49 AM Dictated Date/Time: 01/24/2018 11:42 AM
[2018-01-24 12:13] VITALS: BP 131/87; PULSE 91; O2SAT 97
--- NOTE | 2018-01-24 15:16 | EMERGENCY ROOM VISIT NOTE ---
History Report prepared by Kristian: Charly Floyd Under the Supervision of: Dr. Edu Rader M.D. First contact with patient: 09:40 Chief Complaint: FALL Stated Complaint: FELL AND HIT SHOULDER ON BATHTUB History of Present Illness The patient is an 82 year old female who presents to the Emergency Room with complaints of an episodic fall last night. She states that she was in her bathroom and bending over when she lost her balance and fell to the left side of her body. She reports left shoulder pain and sacral back pain. She currently rates her pain a 9/10 in severity. She denies any head injuries, neck pain, or leg pain. She denies any numbness or tingling in her hands. She states that she has been losing her balance more than normal, though she is normally able to catch herself. She denies feeling dizzy or lightheaded before the fall. She uses a cane to assist in ambulating. She has not taken any medication for the pain. She has been keeping up with her fluid intake. She denies any urinary symptoms. Source of History: patient Onset: last night Position: other (global ) Symptom Intensity: 9/10 Quality: other (fall) Timing: other (episodic ) Associated Symptoms: + back pain (sacral), No neck pain, No urinary symptoms , No numbness (or tingling) Note: She reports left shoulder pain. She denies any head injuries or leg pain. She denies any dizziness or lightheadedness. Review of Systems See HPI for pertinent positives & negatives. A total of 10 systems reviewed and were otherwise negative. Past Medical & Surgical Medical Problems: (1) VITOR (acute kidney injury) (2) Anemia (3) Bipolar disorder (4) Chest pain (5) CHF (congestive heart failure) (6) CKD (chronic kidney disease) (7) Diastolic dysfunction (8) Dyspnea (9) H/O viral myocarditis (10) History of gout (11) Hyperlipidemia (12) Hypertension (13) Mitral regurgitation (14) Cesilia-prosthetic fracture of femur following total hip arthroplasty Surgical Problems: (1) History of hysterectomy (2) History of left hip replacement (3) History of right hip replacement (4) S/P appendectomy (5) S/P ORIF (open reduction internal fixation) fracture (6) Status post left hip replacement Family History Diabetes mellitus FH: CHF (congestive heart failure) FATHER MOTHER BROTHER Hypertension Social History Smoking Status: Former Smoker Smokeless Tobacco Use: No Alcohol Use: none Drug Use: none Marital Status: Housing Status: assisted living Occupation Status: retired Current/Historical Medications Scheduled Aspirin (Aspirin Ec), 81 MG PO HS Atorvastatin (Lipitor), 10 MG PO DAILY Colchicine (Colcrys), 0.6 MG PO BID Metoprolol Succinate (Metoprolol Succinate ER), 50 MG PO DAILY Sacubitril-Valsartan (Entresto 49-51 mg), 1 TAB PO BID Venlafaxine Hcl (Effexor Extended Rel), 150 MG PO HS Scheduled PRN Furosemide (Lasix), 40 MG PO DAILY PRN for EDEMA Allergies Coded Allergies: Lobster (Verified Adverse Reaction, Intermediate, GI SYMPTOMS, 01/24/18) per pt report. Physical Exam Vital Signs Date Time Temp Pulse Resp B/P (MAP) Pulse Ox O2 Delivery O2 Flow Rate FiO2 01/24/18 12:13 91 18 131/87 97 01/24/18 11:39 86 14 128/93 98 Room Air 01/24/18 10:43 86 16 127/89 98 Room Air 01/24/18 09:37 36.5 87 18 128/76 94 Room Air Physical Exam GENERAL: Patient is in no acute distress. HEENT: No acute trauma, normocephalic atraumatic, mucous membranes moist, no nasal congestion, no scleral icterus. No scalp hematoma. NECK: No stridor, no adenopathy, no meningismus, trachea is midline. Non-tender cervical spine. LUNGS: Clear to auscultation bilaterally, no wheeze, no rhonchi, breath sounds equal. HEART: Subtle systolic murmur. Regular rhythm and normal rate. ABDOMEN: Soft, nontender, bowel sounds positive, no hernias, no peritonitis. BACK: Tender over mid scarum, no contusion or step-off noted. EXTREMITIES: No pain to move joints of LE. Pain with movement of left shoulder, no gross deformity or focal point tenderness. Left clavicle is stable and nontender. NVI distally in LUE. NEUROLOGIC: Oriented x 3, no acute motor or sensory deficits, no focal weakness. SKIN: No rash, no jaundice, no diaphoresis. Medical Decision & Procedures ER Provider Diagnostic Interpretation: Radiology results as stated below per my review and radiologist interpretation: SACRUM COCCYX MIN 2 VIEWS CLINICAL HISTORY: 82 years-old Female presenting with fall, pain. TECHNIQUE: 3 views of the sacrum and coccyx were obtained. COMPARISON: Plain radiograph of the pelvis from 11/10/2015. FINDINGS: Apparent fracture of the sacrococcygeal junction with dorsal displacement of the distal fracture fragment, which appears to comprise majority of the coccyx. Bilateral total hip arthroplasties noted. Sacroiliac joints demonstrate no evidence of erosions or fusion. Minimal osteophytosis may be present. Atherosclerosis. Degenerative changes of the pubic symphysis. Degenerative changes of the lower lumbar spine. IMPRESSION: Acute displaced fracture at the sacrococcygeal junction with dorsal displacement of the coccyx. Electronically signed by: Elmer Martino M.D. 01/24/2018 10:46 AM Dictated Date/Time: 01/24/2018 10:44 AM L SHOULDER MIN 2 VIEWS ROUTINE HISTORY: 82 years-old Female fall, pain, left acute left shoulder pain status post fall COMPARISON: Chest radiograph 01/07/2018 TECHNIQUE: 3 views of the left shoulder FINDINGS: Severe degenerative changes of the glenohumeral joint with mild AC joint degenerative changes. The bones appear to be mildly demineralized. No acute fracture or dislocation. The clavicle appears intact. The heart appears to be enlarged. Atherosclerosis of the aorta. Probable biopsy clip of the left breast is noted. IMPRESSION: 1. Severe degenerative changes of the left glenohumeral joint without acute fracture or dislocation. 2. Osteopenic appearance of the bones. The above report was generated using voice recognition software. It may contain grammatical, syntax or spelling errors. Electronically signed by: Canelo Lam M.D. 01/24/2018 10:46 AM Dictated Date/Time: 01/24/2018 10:45 AM CHEST ONE VIEW PORTABLE CLINICAL HISTORY: 82 years-old Female presenting with fall, pain. TECHNIQUE: Portable upright AP view of the chest was obtained. COMPARISON: 01/07/2018. FINDINGS: The patient is HAMPTON rotated. Atherosclerosis of aortic arch. Cardiac silhouette enlarged. Mild pulmonary vascular prominence. Lungs and pleural spaces clear. Prominent skin folds noted over the right apex. Degenerative changes of the thoracic spine. Degenerative changes of the left glenohumeral joint. Upper abdomen normal. IMPRESSION: 1. Mild cardiomegaly. No other evidence of acute cardiopulmonary disease. Electronically signed by: Elmer Martino M.D. 01/24/2018 10:50 AM Dictated Date/Time: 01/24/2018 10:48 AM PELVIS NO IV/ORAL CONT (CT) HISTORY: 82 years-old Female fall, fx of sacrum by plain film acute pelvic pain with questioned fracture of the sacrum/coccyx seen on comparison radiographs COMPARISON: Sacrum and coccyx radiographs of same day TECHNIQUE: Multiple axial CT images of the pelvis were obtained without contrast. A dose lowering technique was used consistent with the principals of ALA. FINDINGS: The bones appear moderately demineralized. The exam is limited secondary to streak artifact from bilateral hip arthroplasties. No evidence of hardware complication or loosening. Severe degenerative changes are seen within the pubic symphysis with moderate degenerative changes of the bilateral SI joints. 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 Severe intervertebral disc space narrowing with endplate spurring and facet arthrosis seen at L5-S1. Facet arthropathy and endplate spurring is also seen at L4-L5. No evidence of sacral insufficiency fracture. The bilateral iliac bones appear intact. There is mild soft tissue stranding surrounding the coccyx with 5 mm anterior displacement of the coccyx in relation to the distal sacrum as seen on image 35 series 201 suggesting acutely displaced fracture of the sacrococcygeal junction. No additional acute fracture or subluxation identified. Calcifications are seen involving the arterial vascular structures. No acute abnormality identified in the imaged pelvis. Small fat filled periumbilical hernia. Mild nonspecific body wall edema. IMPRESSION: 1. Moderately demineralized appearance of the bones limits evaluation for acute nondisplaced fracture. Again noted is a mildly displaced acute fracture of the sacrococcygeal junction with mild surrounding soft tissue edema. 2. No additional acute fracture or subluxation identified involving the pelvis. No evidence of sacral insufficiency or pelvic ring fracture. 3. Severe degenerative changes with chondrocalcinosis of the pubic symphysis. 4. Streak artifact from bilateral intact hip arthroplasties limits the study. The above report was generated using voice recognition software. It may contain grammatical, syntax or spelling errors. Electronically signed by: Canelo Lam M.D. 01/24/2018 11:49 AM Dictated Date/Time: 01/24/2018 11:42 AM Medications Administered Medications (Trade) Dose Ordered Sig/Chinedu Route Start Time Stop Time Status Last Admin Dose Admin Acetaminophen (Tylenol Tab) 1,000 mg NOW STAT PO 01/24/18 09:49 01/24/18 09:51 DC 01/24/18 10:05 1,000 MG ED Course 0944: The patient was evaluated in room B11B. A complete history and physical exam was performed. 0949: Ordered Tylenol 1,000 mg PO 1103: I reassessed the patient at this time. She agreed to have a CT scan. 1157: I spoke with Dr. Tony, [facility] orthopedic surgeon. We discussed the patient's case. He will review the patients case. 1203: I spoke with Dr. Tony, [facility] orthopedic surgeon. He recommends discharging the patient. 1204: I reassessed the patient at this time. She is feeling better and resting comfortably. I discussed the results and treatment plan with the patient. I answered all pertaining questions that she had. She expressed understanding and verbalized agreement. The patient will be discharged home. Medical Decision The patient is a 82 year old female who presents to the ED with complaints of episodic fall. Differential diagnoses considered include shoulder fracture or strain, shoulder dislocation, clavicle fracture, sacral fracture or contusion, and head/neck/chest trauma. The patient presents with a fall. She has left shoulder and mid sacral pain. She is not on any blood thinners, she did not strike her head. No headache or neck pain or chest pain. She has not been sick or ill. This fall sounded mechanical. Films of the left shoulder and chest do not show rib fracture or acute shoulder injury. There was no shoulder dislocation. Sacral film showed a lower sacral fracture with some mild displacement of the fracture fragments. Pelvis CT showed the same fracture, no other concerning fracture/findings. I discussed the case with orthopedics. Conservative care is all that is required. She will walk with a walker, Tylenol for pain. Ice for swelling. She will follow with her family doctor. The patient was encouraged to return here for worsening symptoms or pain. She did receive a dose of oral Tylenol prior to discharge. Medication Reconcilliation Current Medication List: was personally reviewed by me Blood Pressure Screening Patient's blood pressure: Normal blood pressure Consults Time Called: 1153 Consulting Physician: Dr. Tony [facility] orthopedic surgeon Returned Call: [address] Tony, [facility] orthopedic surgeon. We discussed the patient's case. He will review the patients case. 1203: I spoke with Dr. Tony, [facility] orthopedic surgeon. He recommends discharging the patient. Impression Primary Impression: Sacral fracture Additional Impressions: Contusion of left shoulder Fall Scribe Attestation The scribe's documentation has been prepared under my direction and personally reviewed by me in its entirety. I confirm that the note above accurately reflects all work, treatment, procedures, and medical decision making performed by me. Departure Information Dispostion Home / Self-Care Referrals Raquel Zaragoza CRNP (PCP) Forms HOME CARE DOCUMENTATION FORM, IMPORTANT VISIT INFORMATION Patient Instructions My [facility] Additional Instructions ice to the sore areas for 30 minutes on and 30 minutes off for the next 2-3 days sit on a soft pillow tylenol for pain follow with [facility] md--call for an appt use the walker you have at home return if worsening Problem Qualifiers
== END 2018-01-24 12:30 | disposition home or self-care (01) ==
LOC: C.EDB 09:32
DX: S32.10XA Unspecified fracture of sacrum, initial encounter for closed fracture (principal); S40.012A Contusion of left shoulder, initial encounter; W18.39XA Other fall on same level, initial encounter; Y93.89 Activity, other specified; Y92.002 Bathroom of unspecified non-institutional (private) residence as the place of occurrence of the external cause; F31.9 Bipolar disorder, unspecified; I13.0 Hypertensive heart and chronic kidney disease with heart failure and stage 1 through stage 4 chronic kidney disease, or unspecified chronic kidney disease; I50.9 Heart failure, unspecified; N18.9 Chronic kidney disease, unspecified; E78.5 Hyperlipidemia, unspecified; I34.0 Nonrheumatic mitral (valve) insufficiency; Z79.82 Long term (current) use of aspirin; Z96.643 Presence of artificial hip joint, bilateral; Z87.39 Personal history of other diseases of the musculoskeletal system and connective tissue; Z87.891 Personal history of nicotine dependence; Z91.013 Allergy to seafood; Z83.3 Family history of diabetes mellitus; Z82.49 Family history of ischemic heart disease and other diseases of the circulatory system

== ENCOUNTER → 2018-02-22 | Outpatient (CLI) | payer BC ==
[~2018-02-22] MED LIST changes: +FRS/40 PO
[2018-02-22 12:34] LABS: BLOOD UREA NITROGEN 32 mg/dl (7-18); CALCIUM 8.7 mg/dl (8.5-10.1); CARBON DIOXIDE 28 mmol/L (21-32); CREATININE 1.74 mg/dl (0.60-1.20); GLUCOSE 155 mg/dl (70-99); POTASSIUM 3.3 mmol/L (3.5-5.1); SODIUM 142 mmol/L (136-145)
== END | disposition home or self-care (01) ==
LOC: C.LAB 10:36
PROVIDERS: ATTEND Physician Assistant
DX: I42.8 Other cardiomyopathies (principal)

== ENCOUNTER → 2018-02-28 | Outpatient (CLI) | payer BC ==
--- NOTE | 2018-02-28 09:43 | DIAGNOSTIC IMAGING REPORT ---
(BARIUM SWALLOW) ESOPHAGUS CLINICAL HISTORY: R13.10 Dysphagia 82-YEAR-OLD FEMALE WITH DYSPHAGIA AND WEIGHT LOSS COMPARISON STUDY: None. FLUOROSCOPY TIME: 2.6 minutes. 23 images submitted. FINDINGS: The patient swallowed barium without difficulty. The contours of the hypopharynx are within normal limits. There is focal moderate narrowing within the proximal esophagus best seen on image 10. However, the barium tablet passed without difficulty. Mild esophageal dysmotility. No hiatus hernia. No gastroesophageal reflux demonstrated during the examination. IMPRESSION: Focal moderate narrowing within the proximal esophagus. Recommend endoscopy for further evaluation. Electronically signed by: Leobardo Hairston M.D. 02/28/2018 9:42 AM Dictated Date/Time: 02/28/2018 9:39 AM
== END | disposition home or self-care (01) ==
LOC: C.RAD 08:52
DX: R13.10 Dysphagia, unspecified (principal)

== ENCOUNTER → 2018-03-21 | Day surgery (SDC) | payer BC ==
[2018-03-16 07:52] VITALS: Ht 170.2 cm; Wt 59.5 kg
[~2018-03-21] VITALS: Ht 170.2 cm; Wt 59.5 kg
[~2018-03-21] MED LIST changes: -CLC6 PO; +LIDOCAINE HCL 2% 2 ML VIAL (20MG/ML) ONE; +METO50TA8 PO; +POTA1TAB97 PO; +PROPOFOL IV EMULSION 10 MG/ML 20 ML VIAL IV ONE; +SODIUM CHLORIDE 0.9% 500ML 500 ML IV ONE; -TPRSR/50 PO; -VENL150C56 PO; +VENL150T33 PO
[2018-03-21 14:41] VITALS: TEMP 36.6
--- NOTE | 2018-03-21 15:17 | Endo History and Physical ---
History & Physical Date of Service: Mar 21, 2018. Chief Complaint: dysphagia Referring Physician: Raquel PALOMINO History of Present Illness 82 yo female who presents for EGD secondary to dysphagia. Past Medical History Osteoporosis, High Cholesterol, Hypertension, Depression Past Surgical History Hx Cardiac Surgery: Yes (HEART CATH/NO STENTS) Hx Internal Defibrillator: No Hx Pacemaker: No Hx Abdominal Surgery: Yes (HYSTERECTOMY, APPY) Hx of Implantable Prosthesis: No Hx Post-Op Nausea and Vomiting: Yes Hx Cancer Surgery: No Hx Thoracic Surgery: No Hx Orthopedic: Yes (RT/LEFT MARBIN, LEFT FEMUR FX REPAIR X 2) Hx Urinary Tract Surgery: No Family History None Social History Smoking Status: Former Smoker Hx Substance Use: No Hx Alcohol Use: No Allergies Coded Allergies: NO KNOWN DRUG ALLERGIES (Verified Allergy, Unknown, ., 03/16/18) Lobster (Verified Adverse Reaction, Intermediate, GI SYMPTOMS, 03/16/18) per pt report. Current Medications Reported Home Medications Medications Dose Route/Sig Max Daily Dose Days Date Category Entresto 49-51 mg (Sacubitril-Valsartan) 1 Tab Tab 1 Tab PO BID 03/16/18 Reported K-Tab (Potassium Chloride) 20 Meq Tab 1 Tab PO DAILY AFTER A MEAL 03/16/18 Reported Lasix (Furosemide) 40 Mg Tab 40 Mg PO HS 03/16/18 Reported Venlafaxine Hcl Er (Venlafaxine Hcl) 150 Mg Tab 1 Tab PO HS 03/16/18 Reported Toprol-Xl (Metoprolol Succinate) 50 Mg Tabcr 100 Mg PO HS 03/16/18 Reported Lipitor (Atorvastatin Calcium) 10 Mg Tab 10 Mg PO HS 06/02/17 Reported Aspirin Ec (Aspirin) 81 Mg Tab 81 Mg PO HS 07/28/16 Reported Vital Signs Weight (Kilograms): 59.55 Height (Feet): 5 Height (Inches): 7 Date Time Temp Pulse Resp B/P (MAP) Pulse Ox O2 Delivery O2 Flow Rate FiO2 03/21/18 14:41 36.6 70 18 131/86 (101) 97 Room Air Physical Exam General Appearance: WD/WN, no apparent distress Respiratory/Chest: Auscultation: breath sounds normal Cardiovascular: Heart Auscultation: RRR Abdomen: Bowel Sounds: normal Inspection & Palpation: soft, non-distended, no tenderness, guarding & rebound Assessment and Plan Assessment: 82 yo female who presents for EGD secondary to dysphagia. Plan: Proceed with EGD.
--- NOTE | 2018-03-21 15:43 | Discharge Instructions ---
Endoscopy Patient Instructions Date / Procedure(s) Performed Mar 21, 2018. EGD Allergy Information Coded Allergies: NO KNOWN DRUG ALLERGIES (Verified Allergy, Unknown, ., 03/16/18) Lobster (Verified Adverse Reaction, Intermediate, GI SYMPTOMS, 03/16/18) per pt report. Discharge Date / Findings Mar 21, 2018. Esophageal stricture s/p dilation to 17mm maximum Erosive gastritis s/p biopsies Medication Instructions Stopped Medication(s): took ASA yesterday 1) Start Protonix 40mg by mouth daily 1/2 hour prior to breakfast. 2) OK to resume all other medications today as prescribed Reported Home Medications Medications Dose Route/Sig Max Daily Dose Days Date Category Entresto 49-51 mg (Sacubitril-Valsartan) 1 Tab Tab 1 Tab PO BID 03/16/18 Reported K-Tab (Potassium Chloride) 20 Meq Tab 1 Tab PO DAILY AFTER A MEAL 03/16/18 Reported Lasix (Furosemide) 40 Mg Tab 40 Mg PO HS 03/16/18 Reported Venlafaxine Hcl Er (Venlafaxine Hcl) 150 Mg Tab 1 Tab PO HS 03/16/18 Reported Toprol-Xl (Metoprolol Succinate) 50 Mg Tabcr 100 Mg PO HS 03/16/18 Reported Lipitor (Atorvastatin Calcium) 10 Mg Tab 10 Mg PO HS 06/02/17 Reported Aspirin Ec (Aspirin) 81 Mg Tab 81 Mg PO HS 07/28/16 Reported Provider Instructions Activity Restrictions - No exercising or heavy lifting for 24 hours. - Do not drink alcohol the day of the procedure. - Do not drive a car or operate machinery until the day after the procedure. - Do not make any important decisions or sign important papers in 24 hours after the procedure. Following Day: - Return to full activity which may include returning to work/school. Diet Start your diet with liquids and light foods (jello, soup, juice, toast). Then eat your usual diet if not nauseated. Treatment For Common After Affects For mild abdominal pain, bloating, or excessive gas: - Rest - Eat lightly - Lie on right side Follow-Up Information Follow-up with Raquel PALOMINO as scheduled Anesthesia Information What You Should Know You have had a procedure that required some medicine to reduce anxiety and discomfort. This treatment is called moderate sedation. After receiving the treatment, you may be sleepy, but you will be able to breathe on your own. The effects of the treatment may last for several hours. Follow these instructions along with Activity/Diet recommendations noted above: * Do NOT do anything where dizziness or clumsiness would be dangerous. * Rest quietly at home today, then you can be up and about tomorrow. * Have a responsible person stay with you the rest of today. * You may have had an I.V. today. If so, you may take the dressing off later today. Recommendations Call your doctor if: * Trouble breathing * Continuous vomiting for more than 24 hours * Temperature above 101 degrees * Severe abdominal pain or bloating * Pain not relieved by pain medicine ordered * There is increased drainage or redness from any incision * A large amount of rectal bleeding greater than 2-3 tablespoons. (If you had a polyp/s removed or have hemorrhoids, a small amount of blood - from the rectum is to be expected.) * You have any unanswered questions or concerns. IN THE EVENT OF A SERIOUS EMERGENCY, GO TO THE NEAREST EMERGENCY ROOM Your discharge instructions were prepared by provider Nolan Helm. Patient Instructions Signature Page Nisha Quesada Patient (or Guardian) Signature/Date: I have read and understand the instructions given to me by my caregivers. Caregiver/RN/Doctor Signature/Date: The above-named patient and/or guardian has received patient instructions on this date. + Original Patient Signature Page (only) stays with chart. Please make copy for patient.
--- NOTE | 2018-03-21 15:55 | GI REPORT ---
Procedure Date: 03/21/2018 2:38 PM Procedure: Upper GI endoscopy Indications: Dysphagia Medicines: Monitored Anesthesia Care Complications: No immediate complications. Estimated Blood Loss: Estimated blood loss: none. Procedure: Pre-Anesthesia Assessment: - Prior to the procedure, a History and Physical was performed, and patient medications and allergies were reviewed. The patient's tolerance of previous anesthesia was also reviewed. The risks and benefits of the procedure and the sedation options and risks were discussed with the patient. All questions were answered, and informed consent was obtained. Prior Anticoagulants: The patient has taken no previous anticoagulant or antiplatelet agents. ASA Grade Assessment: IV - A patient with severe systemic disease that is a constant threat to life. After reviewing the risks and benefits, the patient was deemed in satisfactory condition to undergo the procedure. After obtaining informed consent, the endoscope was passed under direct vision. Throughout the procedure, the patient's blood pressure, pulse, and oxygen saturations were monitored continuously. The scope was introduced through the mouth, and advanced to the second part of duodenum. The upper GI endoscopy was accomplished without difficulty. The patient tolerated the procedure well. Findings: A few benign-appearing, intrinsic stenoses were found. These stenoses were moderately severe and the narrowest stenosis measured 1.3 cm (inner diameter) x 1 cm (in length). The stenoses were traversed. A guidewire was placed and the scope was withdrawn. Dilation was performed with a Savary dilator with mild resistance at 48 Fr and 51 Fr. The dilation site was examined and showed moderate improvement in luminal narrowing. Localized moderate inflammation characterized by erosions was found in the gastric antrum. Biopsies were taken with a cold forceps for histology. The examined duodenum was normal. Impression: - Benign-appearing esophageal stenoses. Dilated. - Gastritis. Biopsied. - Normal examined duodenum. Recommendation: - Resume previous diet. - Use Protonix (pantoprazole) 40 mg PO daily. - Await pathology results. - Return to GI office in 6 weeks. Nolan Helm DO 03/21/2018 3:54:52 PM This report has been signed electronically. Note Initiated On: 03/21/2018 2:38 PM I attest to the content of the Intraoperative Record and orders documented therein, exceptions below
--- NOTE | 2018-03-21 16:04 | Anesthesiology Progress Note ---
Anesthesia Post Op Note Date & Time Mar 21, 2018 at 16:04 Vital Signs Pain Intensity: 0 Vital Signs Past 12 Hours Date Time Temp Pulse Resp B/P (MAP) Pulse Ox O2 Delivery O2 Flow Rate FiO2 03/21/18 15:59 72 18 100/54 (69) 96 Room Air 03/21/18 15:53 72 18 113/63 (80) 99 Room Air 03/21/18 15:49 74 18 96/70 (79) 98 Room Air 03/21/18 14:41 36.6 70 18 131/86 (101) 97 Room Air Notes Mental Status: alert / awake / arousable, participated in evaluation Pt Amnestic to Procedure: Yes Nausea / Vomiting: adequately controlled Pain: adequately controlled Airway Patency, RR, SpO2: stable & adequate BP & HR: stable & adequate Hydration State: stable & adequate Anesthetic Complications: no major complications apparent
[2018-03-21 16:21] VITALS: BP 123/73; PULSE 70; O2SAT 96
== END | disposition home or self-care (01) ==
LOC: C.GI 14:01
PROVIDERS: ATTEND Internal Medicine
DX: R13.10 Dysphagia, unspecified (principal); K29.50 Unspecified chronic gastritis without bleeding; I25.10 Atherosclerotic heart disease of native coronary artery without angina pectoris; I10 Essential (primary) hypertension; E78.00 Pure hypercholesterolemia, unspecified; M81.0 Age-related osteoporosis without current pathological fracture; F32.9 Major depressive disorder, single episode, unspecified; Z79.82 Long term (current) use of aspirin; Z90.710 Acquired absence of both cervix and uterus; Z90.49 Acquired absence of other specified parts of digestive tract; Z96.643 Presence of artificial hip joint, bilateral; Z87.891 Personal history of nicotine dependence

== ENCOUNTER → 2018-04-16 | Outpatient (CLI) | payer BC ==
[~2018-04-16] MED LIST changes: -LIDOCAINE HCL 2% 2 ML VIAL (20MG/ML) ONE; -PROPOFOL IV EMULSION 10 MG/ML 20 ML VIAL IV ONE; -SACU1TAB7 PO; -SODIUM CHLORIDE 0.9% 500ML 500 ML IV ONE
--- NOTE | 2018-04-16 12:25 | DIAGNOSTIC IMAGING REPORT ---
ABDOMEN LIMITED (US) CLINICAL HISTORY: UMBILICAL DISCHARGE COMPARISON STUDY: Pelvis CT 01/24/2018. FINDINGS: Trace fluid deep to the umbilicus. This does not appear loculated to suggest an abscess. Small fat-containing umbilical hernia measuring 1.1 cm. IMPRESSION: 1. Trace fluid at the umbilicus. This does not appear to be loculated to suggest an abscess. 2. Small fat-containing umbilical hernia. Electronically signed by: Leobardo Hairston M.D. 04/16/2018 12:24 PM Dictated Date/Time: 04/16/2018 12:22 PM
== END | disposition home or self-care (01) ==
LOC: C.ULTR 11:11
PROVIDERS: ATTEND Neuromusculoskeletal Medicine & OMM
DX: R19.8 Other specified symptoms and signs involving the digestive system and abdomen (principal)

== ENCOUNTER → 2018-04-16 | Outpatient (CLI) | payer BC | END | disposition home or self-care (01) | LOC: C.LAB1850 10:46 | PROVIDERS: ATTEND Neuromusculoskeletal Medicine & OMM | DX: T14.8XXA Other injury of unspecified body region, initial encounter (principal); X58.XXXA Exposure to other specified factors, initial encounter ==